=== PATIENT | female | born 1995 | race Caucasian/White ===

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

== ENCOUNTER → 2017-02-01 | Outpatient (CLI) | payer BC ==
--- NOTE | 2017-02-01 09:34 | CT ---
EXAMINATION TYPE: CT abdomen pelvis wo/w con DATE OF EXAM: 02/01/2017 9:01 AM COMPARISON: NONE INDICATION: Abnormal weight loss DLP: 2720 mGycm, Automated exposure control for dose reduction was used. CONTRAST: 100 ml mL of Omnipaque 300. Study performed with Oral Contrast TECHNIQUE: Axial images were obtained from above the diaphragm to the pubic rami in the axial plane a t 5 mm thick sections. Reconstructed images are reviewed on the computer in the coronal plane. Stud y is performed without and then with intravenous contrast. Oral contrast is utilized. FINDINGS: Limited CT sections are obtained the lung bases. The lung bases are clear. CT ABDOMEN: Liver: Normal Spleen: Normal Pancreas: Normal Adrenal glands: The adrenal glands are normal. Gallbladder: Normal Kidneys: No masses are evident. No hydronephrosis is present. No cysts are present. Delayed images were obtained through the kidneys, which remain unremarkable. Aorta: Normal Inferior vena cava: Normal. CT PELVIS: Loops of bowel within the abdomen and pelvis are normal. There are loops of bowel which are incom pletely distended or lack oral contrast limiting their evaluation. Appendix: Not identified Urinary bladder: Normal. Genitourinary structures: Uterus and ovaries appear unremarkable. Osseous structures: No suspicious lytic or sclerotic lesions. IMPRESSIONS: 1. Unremarkable CT abdomen and pelvis.
== END | disposition home or self-care (01) ==
LOC: RADCTMAIN 06:32
PROVIDERS: ATTEND Physician Assistant
DX: R63.4 Abnormal weight loss (principal)
CPT/HCPCS: 74178; Q9967

== ENCOUNTER 2017-02-03 10:35 | Emergency (ER) | payer BC ==
[2017-02-03] MEDS ORDERED: HYDROmorphone 1 MG/ML 1 ML SYRINGE IVP STA (10:54)
[2017-02-03] MEDS ORDERED: SODIUM CHLORIDE 0.9% 1,000 ML IV STA ×2 (10:54)
[2017-02-03] MEDS ORDERED: ONDANSETRON 4 MG/2 ML VIAL IVP STA (10:54)
[2017-02-03] MEDS ORDERED: MAG HYDROX/AL HYDROX/SIMETH 30 ML, HYOSCYAMINE ELIXIR 10 ML, CIMETIDINE HCL 300 MG, LID... PO STA ×4 (10:56)
[2017-02-03] MEDS ORDERED: PANTOPRAZOLE 40 MG/10 ML VIAL IVP STA (10:57)
--- NOTE | 2017-02-03 11:37 | ED ---
Abdominal Pain HPI - General Chief Complaint: Abdominal Pain Stated Complaint: Abd Pain Time Seen by Provider: 02/03/17 10:44 Source: patient Mode of arrival: ambulatory Limitations: no limitations - History of Present Illness Initial Comments: This 21-year-old female presents complaining of some mid upper abdominal pain. She states that this is a chronic problem that she's had for the last 9 months but it became worse today. She states that it is worse with any food or fluid intake and she has not had much intake over the last day or 2. She had nausea and vomiting 3 days ago but none since. She had a diarrhea yesterday but none today. She denies any fevers or chills. She is currently on her period so is doubtful. She apparently had a computed tomography scan of her abdomen and pelvis 2 days ago and this is negative per records for any acute process. She has had an extensive workup for her abdominal pain and is being seen by Dr. Méndez from gastroenterology. She is had an ultrasound of her abdomen twice, a colonoscopy, and an EGD which were all purportedly negative. She essentially has been diagnosed with irritable bowel syndrome and is on medications for this. She denies any previous abdominal surgeries. She has been taking ibuprofen for her pain for the last 2 days. She took 600 mg twice yesterday. She took 800 mg and 600 mg a day prior. She has been taking Bentyl as needed for her irritable bowel syndrome with limited relief. No other complaints or modifying factors. - Related Data Home Medications Medication Instructions Recorded Confirmed Dicyclomine [Bentyl] 10 mg PO TID 02/03/17 02/03/17 Ibuprofen [Motrin] 600 mg PO Q6HR PRN 02/03/17 02/03/17 Previous Rx's Medication Instructions Recorded Ondansetron Odt [Zofran ODT] 4 mg PO Q8HR PRN #15 tab 02/03/17 traMADol HCl [Ultram] 50 - 100 mg PO Q6H PRN #15 tab 02/03/17 Allergies Allergy/AdvReac Type Severity Reaction Status Date / Time No Known Allergies Allergy Verified 02/03/17 11:10 Review of Systems ROS Statement: Those systems with pertinent positive or pertinent negative responses have been documented in the HPI. ROS Other: All systems not noted in ROS Statement are negative. 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 VITAL SIGNS: Heart rate, blood pressure, respiratory rate reviewed as recorded in nurse's notes. EYES: Pupils are round and reactive. Extraocular movements are intact. No conjunctival / lid redness or swelling. ENT: No external evidence of injury, swelling, or ecchymosis. Airway is patent. Throat is clear. NECK: Nontender. No swelling or evidence of injury. No subcutaneous emphysema. Trachea is midline. No thyroid mass. HEART: Regular rate and rhythm. Good peripheral pulses. LUNGS/CHEST: Breath sounds clear and equal bilaterally. No rales, rhonchi, or wheezes. No ecchymosis, subcutaneous emphysema, or tenderness. ABDOMEN: There is some mild tenderness present into the midepigastric region. No palpable masses or organomegaly. No peritoneal signs. No abdominal wall swelling or ecchymosis. EXTREMITIES: No extremity tenderness. Normal muscle tone and function. No thoracolumbar tenderness. NEUROLOGIC: Sensation is grossly intact. Cranial nerve exam reveals face is symmetrical, tongue is midline, speech is clear. SKIN: No abrasions or ecchymosis is noted. No induration or masses noted. PSYCHIATRIC: Alert and oriented. Appropriate behavior and judgment. Limitations: no limitations Course Vital Signs 02/03/17 02/03/17 10:37 12:38 Temperature 98.0 F 98.5 F Pulse Rate 63 62 Respiratory 16 18 Rate Blood Pressure 134/74 117/77 O2 Sat by Pulse 100 100 Oximetry Medical Decision Making - Medical Decision Making The patient was seen and examined. All diagnostics were reviewed. She really Dilaudid 0.5 mg IV, GI cocktail, and Protonix IV. She is informed that she should stop utilizing any nonsteroidal anti-inflammatory drugs. She does relate that she was utilized marijuana in the past but not recently. She is informed to not start utilizing marijuana as this could potentially have further long-term GI side effects such as cyclic vomiting syndrome for marijuana hyperemesis syndrome. The laboratory came back essentially all within normal limits. There is some ketones in your urine which does demonstrate some degree of dehydration. The KUB x-ray does not show any acute processes. She is feeling markedly improved on recheck. It is felt as though she is stable for discharge. Her symptoms are likely related to her irritable bowel syndrome. The possibility of gastritis is possible although the results of her EGD are unknown to me. It is felt as though she would benefit from following up with her GI physician for further evaluation and treatment and further recommendations. She will be provided a short course of pain medications in case symptoms do recur. - Lab Data Result diagrams: 02/03/17 11:10 02/03/17 11:10 Lab Results 02/03/17 02/03/17 02/03/17 Range/Units 11:10 11:10 11:10 WBC 10.1 (4.0-11.0) k/uL RBC 5.45 H (3.80-5.40) m/uL Hgb 16.4 H (11.4-16.0) gm/dL Hct 48.9 H (34.0-46.0) % MCV 89.8 (80.0-100.0) fL MCH 30.2 (25.0-35.0) pg MCHC 33.6 (31.0-37.0) g/dL RDW 13.4 (11.5-15.5) % Plt Count 253 (150-450) k/uL Neutrophils % 78 % Lymphocytes % 14 % Monocytes % 5 % Eosinophils % 1 % Basophils % 1 % Neutrophils # 7.9 H (1.3-7.7) k/uL Lymphocytes # 1.5 (1.0-4.8) k/uL Monocytes # 0.5 (0-1.0) k/uL Eosinophils # 0.1 (0-0.7) k/uL Basophils # 0.1 (0-0.2) k/uL Sodium 144 (137-145) mmol/L Potassium 4.0 (3.5-5.1) mmol/L Chloride 103 (98-107) mmol/L Carbon Dioxide 24 (22-30) mmol/L Anion Gap 17 mmol/L BUN 6 L (7-17) mg/dL Creatinine 0.65 (0.52-1.04) mg/dL Est GFR (MDRD) Af Amer >60 (>60 ml/min/1.73 sqM) Est GFR (MDRD) Non-Af >60 (>60 ml/min/1.73 sqM) Glucose 96 (74-99) mg/dL Calcium 10.2 (8.4-10.2) mg/dL Total Bilirubin 1.0 (0.2-1.3) mg/dL AST 21 (14-36) U/L ALT 21 (9-52) U/L Alkaline Phosphatase 55 (38-126) U/L Total Protein 8.6 H (6.3-8.2) g/dL Albumin 4.8 (3.5-5.0) g/dL Amylase 40 (30-110) U/L Lipase 31 (23-300) U/L Urine Color Yellow Urine Appearance Cloudy H (Clear) Urine pH 5.5 (5.0-8.0) Ur Specific [place] 1.018 (1.001-1.035) Urine Protein Trace H (Negative) Urine Glucose (UA) Negative (Negative) Urine Ketones 3+ H (Negative) Urine Blood Small H (Negative) Urine Nitrite Negative (Negative) Urine Bilirubin Negative (Negative) Urine Urobilinogen 2.0 (<2.0) mg/dL Ur Leukocyte Esterase Negative (Negative) Urine RBC 3 (0-5) /hpf Urine WBC 4 (0-5) /hpf Ur Squamous Epith Cells 10 H (0-4) /hpf Urine Bacteria Rare H (None) /hpf Urine Mucus Few H (None) /hpf Urine Sperm Rare (None) /hpf Urine HCG, Qual (Not Detectd) 02/03/17 Range/Units 11:10 WBC (4.0-11.0) k/uL RBC (3.80-5.40) m/uL Hgb (11.4-16.0) gm/dL Hct (34.0-46.0) % MCV (80.0-100.0) fL MCH (25.0-35.0) pg MCHC (31.0-37.0) g/dL RDW (11.5-15.5) % Plt Count (150-450) k/uL Neutrophils % % Lymphocytes % % Monocytes % % Eosinophils % % Basophils % % Neutrophils # (1.3-7.7) k/uL Lymphocytes # (1.0-4.8) k/uL Monocytes # (0-1.0) k/uL Eosinophils # (0-0.7) k/uL Basophils # (0-0.2) k/uL Sodium (137-145) mmol/L Potassium (3.5-5.1) mmol/L Chloride (98-107) mmol/L Carbon Dioxide (22-30) mmol/L Anion Gap mmol/L BUN (7-17) mg/dL Creatinine (0.52-1.04) mg/dL Est GFR (MDRD) Af Amer (>60 ml/min/1.73 sqM) Est GFR (MDRD) Non-Af (>60 ml/min/1.73 sqM) Glucose (74-99) mg/dL Calcium (8.4-10.2) mg/dL Total Bilirubin (0.2-1.3) mg/dL AST (14-36) U/L ALT (9-52) U/L Alkaline Phosphatase (38-126) U/L Total Protein (6.3-8.2) g/dL Albumin (3.5-5.0) g/dL Amylase (30-110) U/L Lipase (23-300) U/L Urine Color Urine Appearance (Clear) Urine pH (5.0-8.0) Ur Specific [place] (1.001-1.035) Urine Protein (Negative) Urine Glucose (UA) (Negative) Urine Ketones (Negative) Urine Blood (Negative) Urine Nitrite (Negative) Urine Bilirubin (Negative) Urine Urobilinogen (<2.0) mg/dL Ur Leukocyte Esterase (Negative) Urine RBC (0-5) /hpf Urine WBC (0-5) /hpf Ur Squamous Epith Cells (0-4) /hpf Urine Bacteria (None) /hpf Urine Mucus (None) /hpf Urine Sperm (None) /hpf Urine HCG, Qual Not Detected (Not Detectd) Disposition Clinical Impression: Abdominal pain, Irritable bowel syndrome Disposition: HOME SELF-CARE Condition: Good Instructions: Abdominal Pain (ED), Irritable Bowel Syndrome (ED) Prescriptions: Ondansetron Odt [Zofran ODT] 4 mg PO Q8HR PRN #15 tab PRN Reason: Nausea And Vomiting traMADol HCl [Ultram] 50 - 100 mg PO Q6H PRN #15 tab PRN Reason: Pain Referrals: Josesito Roach DO [Primary Care Provider] - 1-2 days [place] Méndez MD [STAFF PHYSICIAN] - 1-2 days Time of Disposition: 12:54
[2017-02-03 11:38] LABS: Basophils # (A) 0.1 k/uL (0-0.2); Basophils % (A) 1 %; CH 29.8; CHCM 33.3; Eosinophils # (A) 0.1 k/uL (0-0.7); Eosinophils % (A) 1 %; HCT 48.9 % (34.0-46.0); HDW 2.41; HGB 16.4 gm/dL (11.4-16.0); Luc # (Auto) 0.14; Luc % (Auto) 1; Lymphocytes # (A) 1.5 k/uL (1.0-4.8); Lymphocytes % (A) 14 %; MCH 30.2 pg (25.0-35.0); MCHC 33.6 g/dL (31.0-37.0); MCV 89.8 fL (80.0-100.0); Mean Platelet Volume 7.5; Monocytes # (A) 0.5 k/uL (0-1.0); Monocytes % (A) 5 %; Neutrophils # (A) 7.9 k/uL (1.3-7.7); Neutrophils % (A) 78 %; RBC 5.45 m/uL (3.80-5.40); RDW 13.4 % (11.5-15.5); WBC 10.1 k/uL (4.0-11.0); WBC (Perox) 9.95
--- NOTE | 2017-02-03 11:39 | XR ---
EXAMINATION TYPE: XR KUB DATE OF EXAM: 02/03/2017 11:30 AM CLINICAL HISTORY: Upper abdominal pain. TECHNIQUE: 2 upright KUB images of the abdomen are obtained. COMPARISON: CT abdomen and pelvis from 2 days earlier. FINDINGS: Scattered gas is seen in non-distended small bowel loops. Gas is seen in non-distended co jose alberto. Contrast from recent CT and fecal material is seen in nondistended sigmoid colon and rectum. The re is no visceromegaly, pneumoperitoneum, or abnormal calcification appreciated. The lung bases are clear and the osseous structures are intact. IMPRESSION: Overall nonobstructive bowel gas pattern remains present.
[2017-02-03 11:49] LABS: ALT 21 U/L (9-52); AST 21 U/L (14-36); Alkaline Phosphatase 55 U/L (38-126); Amylase 40 U/L (30-110); Anion Gap 17 mmol/L; Blood Urea Nitrogen 6 mg/dL (7-17); Calcium 10.2 mg/dL (8.4-10.2); Carbon Dioxide 24 mmol/L (22-30); Chloride 103 mmol/L (98-107); Glucose 96 mg/dL (74-99); Non-African American GFR(MDRD) >60 (>60 ml/min/1.73 sqM); Sodium 144 mmol/L (137-145); Total Protein 8.6 g/dL (6.3-8.2)
[2017-02-03 12:07] LABS: Appearance,Urine Cloudy (Clear); Bacteria,Urine Rare /hpf; Bilirubin,Urine Negative (Negative); Glucose,Urine (UA) Negative (Negative); Ketones,Urine 3+ (Negative); Leukocyte Esterase,Urine Negative (Negative); Mucus,Urine Few /hpf; Nitrite,Urine Negative (Negative); PH, Urine 5.5 (5.0-8.0); Particle Count 11177; Protein,Urine Trace (Negative); RBC,Urine 3 /hpf (0-5); Specific Gravity,Urine 1.018 (1.001-1.035); Sperm,Urine Rare /hpf; Squamous Epithelial Cell,Urine 10 /hpf (0-4); UA Billing (MACRO vs. MICRO) MICRO; WBC,Urine 4 /hpf (0-5)
[2017-02-03 13:39] VITALS: BP 132/59; PULSE 66; RESP 18; TEMP 98
== END 2017-02-03 13:39 | disposition home or self-care (01) ==
LOC: EC 10:35
DX: K58.9 Irritable bowel syndrome, unspecified (principal); R10.13 Epigastric pain; Z79.899 Other long term (current) drug therapy
CPT/HCPCS: 99284 ×2; 96374 ×2; 96375 ×3; 96361 ×3; 36415; 80053; 82150; 83690; 85025; 81001; 81025; 74000; J2405; J1170; C9113

== ENCOUNTER 2017-10-28 17:08 | Inpatient (IN) | payer BC, MEDICAID ==
--- NOTE | 2017-10-28 17:34 | ED ---
General Adult HPI - General Source: patient, RN notes reviewed Mode of arrival: ambulatory Limitations: no limitations <Janes Carcamo - Last Filed: 10/28/17 19:31> <Mark Delarosa - Last Filed: 10/28/17 19:42> - General Chief complaint: Psychiatric Symptoms Stated complaint: Anxiety/Mental health Time Seen by Provider: 10/28/17 17:20 - History of Present Illness Initial comments: 22-year-old female who presents emergency room today with a chief complaint of suicidal ideation. Patient does admit that she has been having of symptoms over the last year. Since he has been following up with therapist. States he has been taking her medication. States today she is having increased thoughts of hurting herself. Her friend at bedside states he came home and noticed that she was hypotensive in the bathroom trying to cut her arm. Patient states that she has had thoughts of suicide. She denies bowel sounds. Eyes denies any visual or auditory hallucinations. Patient denies any recent fever, chills, shortness of breath, chest pain, back pain, abdominal pain, nausea or vomiting, visual changes, or any other complaints. (Janes Carcamo) - Related Data Home Medications Medication Instructions Recorded Confirmed Sertraline [Zoloft] 50 mg PO DAILY 10/28/17 10/28/17 Allergies Allergy/AdvReac Type Severity Reaction Status Date / Time No Known Allergies Allergy Verified 10/28/17 17:41 Review of Systems ROS Other: All systems not noted in ROS Statement are negative. <Janes Carcamo - Last Filed: 10/28/17 19:31> ROS Other: All systems not noted in ROS Statement are negative. <Mark Delarosa - Last Filed: 10/28/17 19:42> ROS Statement: Those systems with pertinent positive or pertinent negative responses have been documented in the HPI. Past Medical History Past Medical History: No Reported History Additional Past Medical History / Comment(s): ITP, IBS History of Any Multi-Drug Resistant Organisms: MRSA Date of last positivie culture/infection: 2016 MDRO Source:: urine Past Surgical History: No Surgical Hx Reported Past Psychological History: Anxiety, Depression Smoking Status: Never smoker Past Alcohol Use History: None Reported Past Drug Use History: Marijuana <Janes Carcamo - Last Filed: 10/28/17 19:31> General Exam Limitations: no limitations <Janes Carcamo - Last Filed: 10/28/17 19:31> <Mark Delarosa - Last Filed: 10/28/17 19:42> - General Exam Comments Initial Comments: General: The patient is awake and alert, in no distress, and does not appear acutely ill. Eye: Pupils are equal, round and reactive to light, extra-ocular movements are intact. No nystagmus. There is normal conjunctiva bilaterally. No signs of icterus. Ears, nose, mouth and throat: There are moist mucous membranes and no oral lesions. Neck: The neck is supple, there is no tenderness or JVD. Cardiovascular: There is a regular rate and rhythm. No murmur, rub or gallop is appreciated. Respiratory: Lungs are clear to auscultation, respirations are non-labored, breath sounds are equal. No wheezes, stridor, rales, or rhonchi. Musculoskeletal: Normal ROM, no tenderness. Strength 5/5. Sensation intact. Pulses equal bilaterally 2+. Neurological: A&O x 3. CN II-XII intact, There are no obvious motor or sensory deficits. Coordination appears grossly intact. Speech is normal. Skin: Skin is warm and dry and no rashes or lesions are noted. Psychiatric: Cooperative. (Janes Carcamo) Course <Janes Carcamo - Last Filed: 10/28/17 19:31> <Mark Delarosa - Last Filed: 10/28/17 19:42> Vital Signs 10/28/17 17:14 Temperature 98.3 F Pulse Rate 90 Respiratory 20 Rate Blood Pressure 135/75 O2 Sat by Pulse 100 Oximetry - Reevaluation(s) Reevaluation #1: 10/28/17 19:31 Patient currently waiting to be evaluated by psych here in the emergency room. Case discussed and signed out to attending physician Dr. Delarosa at this time. ( Janes Carcamo) Medical Decision Making <Janes Carcamo - Last Filed: 10/28/17 19:31> <Mark Delarosa - Last Filed: 10/28/17 19:42> - Medical Decision Making Patient be admitted to [facility], evaluated by the psychiatric counselor and nurse to the emergency room. Diagnosis suicidal ideation. (Mark Delarosa) - Lab Data Lab Results 10/28/17 10/28/17 Range/Units 17:50 17:50 Urine HCG, Qual Not Detected (Not Detectd) Urine Opiates Screen Not Detected (NotDetected) Ur Oxycodone Screen Not Detected (NotDetected) Urine Methadone Screen Not Detected (NotDetected) Ur Propoxyphene Screen Not Detected (NotDetected) Ur Barbiturates Screen Not Detected (NotDetected) U Tricyclic Antidepress Not Detected (NotDetected) Ur Phencyclidine Scrn Not Detected (NotDetected) Ur Amphetamines Screen Not Detected (NotDetected) U Methamphetamines Scrn Not Detected (NotDetected) U Benzodiazepines Scrn Not Detected (NotDetected) Urine Cocaine Screen Not Detected (NotDetected) U Marijuana (THC) Screen Detected H (NotDetected) Disposition <Janes Carcamo - Last Filed: 10/28/17 19:31> <Mark Delarosa - Last Filed: 10/28/17 19:42> Clinical Impression: Suicidal ideation Disposition: TRANSFER TO PSYCH HOSP/UNIT Condition: Undetermined Referrals: Windy Shetty DO [Primary Care Provider] - 1-2 days
[2017-10-28 18:16] LABS: Amphetamine Screen,Urine Not Detected (NotDetected); Barbiturate Screen,Urine Not Detected (NotDetected); Benzodiazepines Screen,Urine Not Detected (NotDetected); Cocaine Screen,Urine Not Detected (NotDetected); Methadone Screen, Urine Not Detected (NotDetected); Opiate Screen,Urine Not Detected (NotDetected); Oxycodone Screen, Urine Not Detected (NotDetected); Phencyclidine Screen,Urine Not Detected (NotDetected); Tricyclic Antidepressant,Urine Not Detected (NotDetected); Urn Cannabinoid Scrn Detected (NotDetected)
[2017-10-28 21:59] VITALS: BMI 35.5
[2017-10-28] MEDS ORDERED: MAGNESIUM HYDROXIDE 2,400 MG/10 ML CUP PO PRN (22:37)
[2017-10-28] MEDS ORDERED: ACETAMINOPHEN TAB 325 MG TAB PO PRN (22:37)
[2017-10-28] MEDS ORDERED: ZIPRASIDONE 20 MG VIAL IM PRN (22:37)
[2017-10-28] MEDS: LORazepam 1 MG TAB PO PRN (23:44)
[2017-10-29 08:21] LABS: Basophils # (A) 0.1 k/uL (0-0.2); Basophils % (A) 1 %; Eosinophils # (A) 0.1 k/uL (0-0.7); Eosinophils % (A) 1 %; HCT 46.7 % (34.0-46.0); HGB 15.2 gm/dL (11.4-16.0); Lymphocytes # (A) 3.8 k/uL (1.0-4.8); Lymphocytes % (A) 53 %; MCH 29.6 pg (25.0-35.0); MCHC 32.5 g/dL (31.0-37.0); MCV 91.1 fL (80.0-100.0); Mean Platelet Volume 7.1; Monocytes # (A) 0.5 k/uL (0-1.0); Monocytes % (A) 6 %; Neutrophils # (A) 2.7 k/uL (1.3-7.7); Neutrophils % (A) 37 %; Platelet Count 200 k/uL (150-450); RBC 5.12 m/uL (3.80-5.40); RDW 13.7 % (11.5-15.5); WBC 7.3 k/uL (4.0-11.0)
[2017-10-29 08:25] LABS: ALT 27 U/L (9-52); AST 20 U/L (14-36); Albumin 4.2 g/dL (3.5-5.0); Alkaline Phosphatase 43 U/L (38-126); Anion Gap 8 mmol/L; Blood Urea Nitrogen 6 mg/dL (7-17); Calcium 9.8 mg/dL (8.4-10.2); Carbon Dioxide 26 mmol/L (22-30); Chloride 105 mmol/L (98-107); Cholesterol 159 mg/dL (<200); Glucose 97 mg/dL (74-99); HDL Cholesterol 51 mg/dL (40-60); LDL Cholesterol,Calculated 89 mg/dL (0-99); Potassium 3.7 mmol/L (3.5-5.1); Sodium 139 mmol/L (137-145); Total Bilirubin 0.8 mg/dL (0.2-1.3); Total Protein 7.4 g/dL (6.3-8.2); Triglycerides 94 mg/dL (<150)
[2017-10-29] MEDS: MAG HYDROX/AL HYDROX/SIMETH 30 ML CUP PO PRN (08:52)
[2017-10-29] MEDS ORDERED: SERTRALINE 50 MG TAB PO SCH (09:00)
[2017-10-29] MEDS ORDERED: SERTRALINE 50 MG TAB PO STA (11:46)
[2017-10-29] MEDS: ONDANSETRON ODT 4 MG TAB PO PRN (12:54)
--- NOTE | 2017-10-29 15:43 | P.HPIM ---
History of Present Illness H&P Date: 10/29/17 Megan Schaffer is a 22-year-old female patient of Dr. Windy Shetty who presented to [facility] emergency room this chief complaint of depression , anxiety, suicidal ideation, she was admitted to psychiatry floor, medical consultation was requested for management while hospitalized, patient follows with Dr. Shetty as outpatient for medical management, she denies any previous past medical history, she denies any previous surgery, she denies any history of smoking or alcohol use, she states she smokes marijuana occasionally, she is not she has no children, she has a boyfriend. On review of systems Patient denies any fever or chills no headache no dizziness No chest pain no shortness of breath no cough no palpitation Nausea or vomiting no abdominal pain no diarrhea or constipation She has burning with urination as off-white vaginal discharge 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 Date of last positivie culture/infection: 2015 MDRO Source:: urine Past Surgical History: No Surgical Hx Reported Past Anesthesia/Blood Transfusion Reactions: No Reported Reaction Past Psychological History: Anxiety, Depression Smoking Status: Never smoker Past Alcohol Use History: None Reported, Occasional Additional Past Alcohol Use History / Comment(s): Patient states that she drinks alcohol once monthly-- about 3 drinks. Past Drug Use History: Marijuana Additional Drug Use History / Comment(s): Pt states that she smokes MJ daily- one joint. - Past Family History Father Additional Family Medical History / Comment(s): Bipolar Mother Family Medical History: Hypertension, Pulmonary Embolus Additional Family Medical History / Comment(s): Depression, Anxiety, PTSD Sister(s) Family Medical History: No Reported History Brother(s) Family Medical History: No Reported History Medications and Allergies Home Medications Medication Instructions Recorded Confirmed Type Sertraline [Zoloft] 50 mg PO DAILY 10/28/17 10/28/17 History Allergies Allergy/AdvReac Type Severity Reaction Status Date / Time No Known Allergies Allergy Verified 10/28/17 22:03 Physical Exam Vitals: Vital Signs Temp Pulse Pulse Resp BP BP Pulse Ox 10/29/17 10:53 98.2 F 99 20 135/96 98 10/29/17 08:54 98.3 F 10/29/17 01:12 99.5 F 62 16 134/93 10/28/17 22:28 100.2 F H 90 16 140/76 100 10/28/17 21:52 100.2 F H 90 16 140/76 98 10/28/17 20:47 98.2 F 71 20 131/71 97 10/28/17 17:14 98.3 F 90 20 135/75 100 Intake and Output 10/29/17 10/29/17 10/29/17 06:59 14:59 22:59 Other: Weight 99.8 kg Patient Weight 10/30/17 06:59 Weight 99.8 kg HEENT head normocephalic and atraumatic Neck is supple no JVD no goiter no lymphadenopathy Chest exam reveals a few scattered crackles no wheezing Cardiac exam reveals regular heart sounds S1 and S2 no gallops no murmurs Abdomen is soft nontender no organomegaly Extremity exam reveals no edema no cyanosis or clubbing There are superficial cuts oh on bilateral forearms evidence of cellulitis Results CBC & Chem 7: 10/29/17 07:56 10/29/17 07:56 Labs: Abnormal Lab Results - Last 24 Hours (Table) 10/28/17 10/29/17 10/29/17 Range/Units 17:50 07:56 07:56 Hct 46.7 H (34.0-46.0) % BUN 6 L (7-17) mg/dL TSH 6.920 H (0.465-4.680) mIU/L U Marijuana (THC) Screen Detected H (NotDetected) Thrombosis Risk Factor Assmnt - Choose All That Apply Each Factor Represents 1 point: Obesity (BMI >25) Each Risk Factor Represents 3 Points: Family history of DVT/PE Other congenital or acquired thrombophilia - If yes, enter type in comment: No ( Pt has history of ITP at 6yrs old.) Thrombosis Risk Factor Assessment Total Risk Factor Score: 4 Thrombosis Risk Factor Assessment Level: Moderate Risk Assessment and Plan Plan: #1 depression and with anxiety and suicidal ideation management per primary psychiatry team #2 elevated TSH Will start on Synthroid 25 g daily #3 vaginal discharge with burning with urination obtain urine analysis with urine culture will also check urine for evidence of STD, may need pelvic exam with pelvic cultures, if cause not entirely clinically #4 self-inflicted wounds on bilateral forearms, without any evidence of cellulitis at this time will monitor
[2017-10-29 20:23] LABS: Appearance,Urine Clear (Clear); Bilirubin,Urine Negative (Negative); Blood,Urine Negative (Negative); Color,Urine Colorless; Glucose,Urine (UA) Negative (Negative); Ketones,Urine Negative (Negative); Leukocyte Esterase,Urine Negative (Negative); Nitrite,Urine Negative (Negative); Protein,Urine Negative (Negative); Specific Gravity,Urine 1.001 (1.001-1.035); Urobilinogen,Urine <2.0 mg/dL (<2.0)
[2017-10-29] MEDS: traZODone HCL 50 MG TAB PO SCH (21:29)
[2017-10-29] MEDS: LORazepam 1 MG TAB PO PRN (23:11)
[2017-10-30 05:39] LABS: T4, Free (Free Thyroxine) 1.34 ng/dL (0.78-2.19)
[2017-10-30] MEDS: SERTRALINE 100 MG TAB PO SCH (08:57)
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
[2017-10-30] MEDS: LORazepam 1 MG TAB PO PRN ×2 (10:07→13:04)
[2017-10-30 10:56] LABS: T4, Free (Free Thyroxine) 1.23 ng/dL (0.78-2.19)
--- NOTE | 2017-10-30 15:10 | P.PN ---
Progress Note - Text Patient is admitted to the psychiatry floor she was seen in medical consultation TSH on presentation was elevated at 6.92 however clinical presentation is not compatible with hypothyroidism Repeat TSH and free T4 reveals normal value today At this time will withhold any treatment Patient should have repeated testing for her thyroid chest 1-2 months to make sure that she is euthyroid
[2017-10-30] MEDS: OLANZapine 5 MG TAB PO SCH ×2 (16:18→22:43)
[2017-10-30] MEDS: traZODone HCL 50 MG TAB PO SCH (20:24)
[2017-10-31] MEDS: SERTRALINE 100 MG TAB PO SCH (09:01)
[2017-10-31] MEDS: OLANZapine 5 MG TAB PO SCH ×2 (09:01→17:09)
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
[2017-10-31 10:17] LABS: Glucose,Whole Blood 98 mg/dL (75-99)
[2017-10-31 16:12] LABS: C. trachomatis,PCR Negative (Neg,Equiv); Chlamydia trachomatis Source Urine; N. gonorrhoeae,PCR Negative (Neg,Equiv); Neisseria Source Urine
--- NOTE | 2017-10-31 18:15 | P.PN ---
Progress Note - Text Date of service: 10/31/2017 Chief complaint: "I'm still depressed " Subjective: The patient has been seen today as follow-up, chart reviewed, case discussed with the treatment team. Patient slept about more than 6 hours last night. Patient has been going to groups and other unit activities. Patient reports fair appetite problems. Even the patient reported feeling some improvement compared to the time she came to the hospital, but she still feeling depressed and irritable. Patient was very fixated on bouts of severe drowsiness and syncope. According to the staff she had one episode of severe drowsiness and almost fainted earlier while she was taking her medication. The patient related her fainting to the new medication Zyprexa and Zoloft. Patient minimized has suicidal thoughts and he denies any plan or intent to hurt herself or others. The patient denies any auditory or visual hallucinations. Patient addressed symptoms of severe mood swings and irritable mood with bouts of impulsive and agitated behavior. She reported clear symptoms of mood cycling between hypomanic to very depressed mood. She addressed issues with feeling abandonment or rejection. She reported history of SIB. The patient is compliant with her medications and denies any adverse reactions. Review of other systems: Patient denies any physical symptoms besides what has been mentioned above. No breathing problems, no chest pain reported today. Objective: Vitals has been reviewed. Mental status examination; Appearance: The patient appears stated age, adequately groomed and dressed, no specific features. Gait/posture: Normal gait, Normal arm swinging: No abnormal movements. Attitude and behavior: engaged, cooperative, eye contact. Motor activity: Normal psychomotor activity Speech: Normal rate, tone. Mood: Anxious depressed, irritable Affect: Constricted Thought form: goal-directed, linear, coherent. Thought content: Non-delusional, minimizes suicidal thoughts, denies homicidal thoughts, denies intentions or plans. Perception: Denies any auditory or visual hallucinations Attention: No impairment. Patient was able to repeat serial 5. Orientation: Patient patient was fully oriented to time place person and situation. Insight: Patient has limited insight about his psychiatric disorder. Judgment: Patient has limited judgment about his psychiatric treatment. Assessment: Rule out bipolar 2 disorder Rule out borderline personality disorder Major depressive disorder recurrent without psychotic features PTSD Plan: Continue with inpatient psychiatric hospitalization for monitoring and continue treatment. Continue group therapy and other unit activities. Continue psychiatric medications: Trazodone at bedtime to help with insomnia and for depression Will discontinue Zyprexa for reported drop in blood pressure and fainting as a side effect. Obtain EKG to rule out any medical causes of fainting. And consult IMS if needed Abilify 2 mg daily as a mood stabilizer Vistaril 50 mg 4 times a day as needed for anxiety Consider Effexor as an antidepressant Consider propranolol if continued to have severe anxiety.
[2017-10-31] MEDS: traZODone HCL 50 MG TAB PO SCH (21:49)
[2017-10-31] MEDS: hydrOXYzine PAMOATE 25 MG CAP PO PRN (21:51)
[2017-11-01] MEDS: LORazepam 1 MG TAB PO PRN ×2 (05:53→10:51)
[2017-11-01] MEDS: ARIPiprazole 5 MG TAB PO SCH (08:30)
--- NOTE | 2017-11-01 15:40 | P.PN ---
Progress Note - Text Date of service: 11/01/2017 Chief complaint: "My sleep is better " Subjective: The patient has been seen today as follow-up, chart reviewed, case discussed with the treatment team. Patient slept about more than 7 hours last night. Patient has been going to groups and other unit activities. Patient reports fair appetite problems. The patient has no episodes of fainting or syncope. She stopped taking the Zyprexa and Zoloft. Patient reported her mood is slightly better and she started taking the Abilify today. She denies feeling suicidal and he denies any thoughts to hurt herself or others. She denies any hallucinations or paranoid feeling. EKG was obtained yesterday and would follow up with the medical provider to address if any further monitoring or follow-up needed. Patient reported she feels anxious about the results of the EKG. Patient denies any urge to hurt herself or cut herself. The patient is compliant with her medications and denies any adverse reactions. Review of other systems: Patient denies any physical symptoms besides what has been mentioned above. No breathing problems, no chest pain reported today. Objective: Vitals has been reviewed. Mental status examination; Appearance: The patient appears stated age, adequately groomed and dressed, no specific features. Gait/posture: Normal gait, Normal arm swinging: No abnormal movements. Attitude and behavior: engaged, cooperative, eye contact. Motor activity: Normal psychomotor activity Speech: Normal rate, tone. Mood: Anxious Affect: Constricted Thought form: goal-directed, linear, coherent. Thought content: Non-delusional, denies suicidal thoughts, denies homicidal thoughts, denies intentions or plans. Perception: Denies any auditory or visual hallucinations Attention: No impairment. Orientation: Patient patient was fully oriented to time place person and situation. Insight: Patient has fair insight about her psychiatric disorder. Judgment: Patient has fair judgment about her psychiatric treatment. Assessment: Rule out bipolar 2 disorder Rule out borderline personality disorder Major depressive disorder recurrent without psychotic features PTSD Plan: Continue with inpatient psychiatric hospitalization for monitoring and continue treatment. Continue group therapy and other unit activities. Continue psychiatric medications: Increase Abilify to 5 mg as a mood stabilizer and we'll start Effexor 75 mg tomorrow for depression symptoms. Follow-up on EKG results with the medical provider.
--- NOTE | 2017-11-01 19:27 | ECHOF ---
Referral Reason:syncope tachycardia MEASUREMENTS -------- HEIGHT: 167.6 cm WEIGHT: 99.8 kg BP: RVIDd: 3.0 cm (< 3.3) IVSd: 1.0 cm (0.6 - 1.1) LVIDd: 3.1 cm (3.9 - 5.3) LVPWd: 1.2 cm (0.6 - 1.1) IVSs: 1.7 cm LVIDs: 1.5 cm LVPWs: 1.8 cm Ao Diam: 2.8 cm (2.0 - 3.7) AV Cusp: 2.0 cm (1.5 - 2.6) LA Diam: 2.5 cm (2.7 - 3.8) MV EXCURSION: 18.829 mm (> 18.000) MV EF SLOPE: 66 mm/s (70 - 150) EPSS: 0.5 cm MV E Cristian: 0.80 m/s MV DecT: 181 ms MV A Cristian: 0.78 m/s MV E/A Ratio: 1.03 RAP: 5.00 mmHg RVSP: 23.20 mmHg FINDINGS -------- Sinus rhythm. This was a technically good study. The left ventricular size is normal. There is borderline concentric left ventricular hypertrophy. Overall left ventricular systolic function is normal with, an EF between 55 - 60 %. The right ventricle is normal in size and function. The left atrium is normal in size. The right atrium is normal in size. The aortic valve is trileaflet, and appears structurally normal. No aortic stenosis or regurgitation. There is trace mitral regurgitation. Trace tricuspid regurgitation present. The right ventricular systolic pressure, as measured by Dopp ler, is 23.20mmHg. Pulmonic valve appears structurally normal. The aortic root size is normal. Normal inferior vena cava with normal inspiratory collapse consistent with estimated right atrial pre ssure of 5 mmHg. The pericardium is normal. CONCLUSIONS -------- 1. Sinus rhythm. 2. This was a technically good study. 3. The left ventricular size is normal. 4. There is borderline concentric left ventricular hypertrophy. 5. Overall left ventricular systolic function is normal with, an EF between 55 - 60 %. 6. The right ventricle is normal in size and function. 7. The left atrium is normal in size. 8. The right atrium is normal in size. 9. The aortic valve is trileaflet, and appears structurally normal. No aortic stenosis or regurgitati on. 10. There is trace mitral regurgitation. 11. Trace tricuspid regurgitation present. 12. The right ventricular systolic pressure, as measured by Doppler, is 23.20mmHg. 13. Pulmonic valve appears structurally normal. 14. The aortic root size is normal. 15. Normal inferior vena cava with normal inspiratory collapse consistent with estimated right atrial pressure of 5 mmHg. 16. The pericardium is normal. CAMPGROUND ATTENDANT: Norma Wells RDCS
[2017-11-01] MEDS: hydrOXYzine PAMOATE 25 MG CAP PO PRN (20:24)
[2017-11-01] MEDS: traZODone HCL 50 MG TAB PO SCH (21:40)
[2017-11-02] MEDS: LORazepam 1 MG TAB PO PRN (00:06)
[2017-11-02] MEDS: ARIPiprazole 5 MG TAB PO SCH (07:37)
[2017-11-02] MEDS ORDERED: VENLAFAXINE HCL ER 75 MG CAP PO SCH (09:00)
--- NOTE | 2017-11-02 09:53 | P.CRDCN ---
History of Present Illness History of present illness: Patient interviewed and examined. Complaining of pounding in the chest, atypical chest discomfort shortness of breath and recurrent dizzy spells. Family history of massive pulmonary embolism. Anxiety disorder. 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 Past Drug Use History: Marijuana Additional Drug Use History / Comment(s): Pt states that she smokes MJ daily- one joint. - Past Family History Father Additional Family Medical History / Comment(s): Bipolar Mother Family Medical History: Hypertension, Pulmonary Embolus Additional Family Medical History / Comment(s): Depression, Anxiety, PTSD Sister(s) Family Medical History: No Reported History Brother(s) Family Medical History: No Reported History Medications and Allergies Home Medications Medication Instructions Recorded Confirmed Type Sertraline [Zoloft] 50 mg PO DAILY 10/28/17 10/28/17 History Allergies Allergy/AdvReac Type Severity Reaction Status Date / Time No Known Allergies Allergy Verified 10/28/17 22:03 Physical Exam Vitals: Vital Signs Temp Pulse Resp BP BP 11/02/17 09:40 98.4 F 106 H 16 142/90 11/02/17 07:22 98.3 F 113 H 18 131/76 11/01/17 21:43 101 H 16 144/88 Results 10/29/17 07:56 10/29/17 07:56 Current Medications Generic Name Dose Route Start Last Admin Trade Name Freq PRN Reason Stop Dose Admin Acetaminophen 650 mg 10/28/17 22:37 Tylenol Tab PO Q4HR PRN Pain/Discomfort Al Hydroxide/Mg Hydroxide 30 ml 10/28/17 22:37 10/29/17 08:52 Maalox PO 30 ml Q4HR PRN Administration GI Upset Aripiprazole 5 mg 11/01/17 09:00 11/02/17 07:37 Abilify PO 5 mg DAILY DUNCAN Administration Hydroxyzine Pamoate 25 mg 10/31/17 18:16 11/01/17 20:24 Vistaril PO 25 mg QID PRN Administration Anxiety Lorazepam 1 mg 10/28/17 22:37 11/02/17 00:06 Ativan PO 1 mg TID PRN Administration Anxiety, Agitation Magnesium Hydroxide 2,400 mg 10/28/17 22:37 Milk Of Magnesia PO DAILY PRN Constipation Ondansetron HCl 4 mg 10/29/17 12:29 10/29/17 12:54 Zofran Odt PO 4 mg Q8HR PRN Administration Nausea And Vomiting Trazodone HCl 75 mg 10/29/17 21:00 11/01/17 21:40 Desyrel PO 75 mg HS DUNCAN Administration Venlafaxine HCl 75 mg 11/02/17 09:00 11/02/17 07:37 Effexor Xr PO 75 mg DAILY DUNCAN Administration Ziprasidone 20 mg 10/28/17 22:37 Geodon IM BID PRN Agitation or Acute Psychosis 10/29/17 07:56 10/29/17 07:56
--- NOTE | 2017-11-02 13:21 | P.PN ---
Progress Note - Text Date of service: 11/02/2017 Chief complaint: "I'm so anxious about the heart test today " Subjective: The patient has been seen today as follow-up, chart reviewed, case discussed with the treatment team. Patient slept about [place] and 7 hours last night. Patient has been going to groups and other unit activities. Patient reports fair appetite problems. Patient reported emotionally feels anxious about having some distal on her heart today and she is worried about the outcome of that. The patient has been seen by user experience architect yesterday and recommended VQ scans over the long and echocardiogram for the heart which she can be performing today. The patient was educated about her symptoms and the cardiac test planned. Patient denies feeling depressed or suicidal and she denies any severe agitation or drastic mood swings. She denies any hallucinations and denies any. Her to anybody. The patient is compliant with her medications and denies any adverse reactions. Review of other systems: Patient denies any physical symptoms besides what has been mentioned above. No breathing problems, no chest pain reported today. Objective: Vitals has been reviewed. Mental status examination; Appearance: The patient appears stated age, adequately groomed and dressed, no specific features. Gait/posture: Normal gait, Normal arm swinging: No abnormal movements. Attitude and behavior: engaged, cooperative, eye contact. Motor activity: Normal psychomotor activity Speech: Normal rate, tone. Mood: Anxious Affect: Constricted Thought form: goal-directed, linear, coherent. Thought content: Non-delusional, denies suicidal thoughts, denies homicidal thoughts, denies intentions or plans. Perception: Denies any auditory or visual hallucinations Attention: No impairment. Orientation: Patient patient was fully oriented to time place person and situation. Insight: Patient has fair insight about her psychiatric disorder. Judgment: Patient has fair judgment about her psychiatric treatment. Assessment: Rule out bipolar 2 disorder Rule out borderline personality disorder Major depressive disorder recurrent without psychotic features PTSD Plan: Continue with inpatient psychiatric hospitalization for monitoring and continue treatment. Continue group therapy and other unit activities. Continue psychiatric medications: Increase Abilify to 10 mg daily dose to address mood symptoms and increase Effexor to 150 mg for depression and anxiety. Discharge planning is ongoing
[2017-11-02] MEDS ORDERED: VENLAFAXINE HCL ER 75 MG CAP PO STA (13:25)
--- NOTE | 2017-11-02 14:00 | P.CRDCN ---
History of Present Illness Consult date: 11/02/17 History of present illness: Ms. Schaffer is a pleasant 22-year-old female with past medical history significant for anxiety and depression. She denies history of CAD and has never seen a collection support specialist for any reason. We have been asked to see her on the mental health unit for tachycardia, dizziness, chest discomfort and mild shortness of breath. She states she can feel her heart racing at times but denies associated chest pain. The racing causes her to feel short of breath and dizzy. The palpitations can come at rest or with activity. There is no specific aggravating and alleviating factors. Her mother has a history of a PE. EKG reveals sinus mechanism with no acute ST or T-wave abnormalities. Vital signs have show heart rate elevated from 106-127 over the previous couple days. She was febrile on admission as well. She takes no cardiac medications. Review of Systems At the time of my exam CONSTITUTIONAL: Denies fever. Denies chills. EYES: Denies blurred vision. Denies vision changes. Denies eye pain. EARS, NOSE, MOUTH & THROAT: Denies headache. Denies sore throat. Denies ear pain. CARDIOVASCULAR: Denies chest pain. Denies shortness of breath. Denies orthopnea. Denies PND. Complains of palpitations. RESPIRATORY: Denies cough. GASTROINTESTINAL: Denies abdominal pain. Denies diarrhea. Denies constipation. Denies nausea. Denies vomiting. MUSCULOSKELETAL: Denies myalgias. INTEGUMENTARY: Denies pruitis. Denies rash. NEUROLOGIC: Denies numbness. Denies tingling. Denies weakness. PSYCHIATRIC: Denies anxiety. Denies depression. ENDOCRINE: Denies fatigue. Denies weight change. Denies polydipsia. Denies polyurina. GENITOURINARY: Denies burning, hematuria or urgency with micturation. HEMATOLOGIC: Denies history of anemia. Denies bleeding. 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 Past Drug Use History: Marijuana Additional Drug Use History / Comment(s): Pt states that she smokes MJ daily- one joint. - Past Family History Father Additional Family Medical History / Comment(s): Bipolar Mother Family Medical History: Hypertension, Pulmonary Embolus Additional Family Medical History / Comment(s): Depression, Anxiety, PTSD Sister(s) Family Medical History: No Reported History Brother(s) Family Medical History: No Reported History Medications and Allergies Home Medications Medication Instructions Recorded Confirmed Type Sertraline [Zoloft] 50 mg PO DAILY 10/28/17 10/28/17 History Allergies Allergy/AdvReac Type Severity Reaction Status Date / Time No Known Allergies Allergy Verified 10/28/17 22:03 Physical Exam Vitals: Vital Signs Temp Pulse Resp BP BP BP 11/02/17 12:15 98.3 F 114 H 18 134/79 11/02/17 09:40 98.4 F 106 H 16 142/90 11/02/17 07:22 98.3 F 113 H 18 131/76 11/01/17 21:43 101 H 16 144/88 Blood pressure 134/79 with a heart rate of 114 afebrile GENERAL: This is a 22-year-old female in no apparent distress at the time of my examination. Obese HEENT: Head is atraumatic, normocephalic. Pupils are equal, round. Sclerae anicteric. Conjunctivae are clear. Mucous membranes of the mouth are moist. Neck is supple. There is no jugular venous distention. No carotid bruit is heard. LUNGS: Clear to auscultation no wheezes, rales or rhonchi. No chest wall tenderness is noted on palpation or with deep breathing. HEART: Regular rate and rhythm without murmurs, rubs or gallops. S1 and S2 heard. Tachycardic. ABDOMEN: Soft, nontender. Bowel sounds are heard. No organomegaly noted. EXTREMITIES: 2+ peripheral pulses with no evidence of peripheral edema and no calf tenderness noted. NEUROLOGIC: Patient is awake, alert and oriented x3. Results 10/29/17 07:56 10/29/17 07:56 Current Medications Generic Name Dose Route Start Last Admin Trade Name Freq PRN Reason Stop Dose Admin Acetaminophen 650 mg 10/28/17 22:37 Tylenol Tab PO Q4HR PRN Pain/Discomfort Al Hydroxide/Mg Hydroxide 30 ml 10/28/17 22:37 10/29/17 08:52 Maalox PO 30 ml Q4HR PRN Administration GI Upset Aripiprazole 10 mg 11/03/17 09:00 Abilify PO DAILY DUNCAN Hydroxyzine Pamoate 25 mg 10/31/17 18:16 11/01/17 20:24 Vistaril PO 25 mg QID PRN Administration Anxiety Lorazepam 1 mg 10/28/17 22:37 11/02/17 00:06 Ativan PO 1 mg TID PRN Administration Anxiety, Agitation Magnesium Hydroxide 2,400 mg 10/28/17 22:37 Milk Of Magnesia PO DAILY PRN Constipation Ondansetron HCl 4 mg 10/29/17 12:29 10/29/17 12:54 Zofran Odt PO 4 mg Q8HR PRN Administration Nausea And Vomiting Trazodone HCl 75 mg 10/29/17 21:00 11/01/17 21:40 Desyrel PO 75 mg HS DUNCAN Administration Venlafaxine HCl 150 mg 11/03/17 09:00 Effexor Xr PO DAILY DUNCAN Ziprasidone 20 mg 10/28/17 22:37 Geodon IM BID PRN Agitation or Acute Psychosis 10/29/17 07:56 10/29/17 07:56 Assessment and Plan Assessment: ASSESSMENT 1. Chest pain, atypical for an acute coronary event. With associated shortness of breath, dizziness and tachycardia. 2. Family history of pulmonary embolism 3. Obese 4. Anxiety PLAN 2-D echocardiogram and Doppler study was evaluated and reveals preserved left ventricular systolic function with ejection fraction 55-60%, right ventricle is normal size and function, there are no valvular abnormalities. Recommend performed VQ scan to assess for probability of pulmonary embolism in a patient with significant family history. Nurse Practitioner note has been reviewed, I agree with a documented findings and plan of care. Patient was seen and examined.
--- NOTE | 2017-11-02 15:33 | NM ---
EXAMINATION TYPE: NM pul vent and perfuse DATE OF EXAM: 11/02/2017 COMPARISON: NONE, chest x-ray not available. HISTORY: Rule out PE. No other history is provided. TECHNIQUE: Utilizing inhalation of 75.5 mCi Tc 99m DTPA aerosol and intravenous injection of 5.5 mCi of Tc 99m MAA, ventilation and perfusion images are acquired post injection in multiple projections. FINDINGS: No moderate or large mismatched defects are evident. There is some diminished radiotracer accumulatio n at the right apex. IMPRESSION: Low probability for pulmonary embolism.
[2017-11-02] MEDS: ONDANSETRON ODT 4 MG TAB PO PRN (16:57)
[2017-11-02] MEDS: traZODone HCL 50 MG TAB PO SCH (20:16)
[2017-11-03 05:40] VITALS: BP 144/84; PULSE 92; RESP 14; TEMP 98
[2017-11-03] MEDS: hydrOXYzine PAMOATE 25 MG CAP PO PRN (05:51)
[2017-11-03] MEDS ORDERED: VENLAFAXINE HCL ER 150 MG CAP PO SCH (09:00)
[2017-11-03] MEDS ORDERED: ARIPiprazole 10 MG TAB PO SCH (09:00)
[2017-11-03] MEDS: MAG HYDROX/AL HYDROX/SIMETH 30 ML CUP PO PRN (11:46)
--- NOTE | 2017-11-03 16:37 | P.DS ---
Providers Date of admission: 10/28/17 21:18 Expected date of discharge: 11/03/17 Attending physician: Dominic Redd Consults: 11/01/17 11:40 Consult Physician Routine Consulting Provider: Wagner Mcpherson Consult Reason/Comments: syncope, tachycardia Do you want consulting provider notified?: Yes 10/28/17 22:37 Consult Physician Routine Consulting Provider: Cris Lui Consult Reason/Comments: H and P with medical follow up Do you want consulting provider notified?: Already Contacted Primary care physician: Windy Shetty Hospital Course: Hospital Course: Identifying information/background information/hospital course: The patient is 22-year-old female who lives with a boyfriend and 2 roommates was prompted to emergency department for psychiatric evaluation after she had thoughts of self-harm and effort to cut herself. The patient has long history of depression and PTSD symptoms. Patient had received some outpatient treatment for her psychiatric problems but she didn't follow up and she didn't continue her medication. Reported symptoms of depression lack of motivation, and poor energy. She endorses a history of mood fluctuation, and bouts of severe irritability and could be very agitated. The patient reported symptoms of borderline including confusion about herself and fear of abandonment besides she has history of self-inflicted injuries. The patient has been admitted since 10/28/2017, and she was started on psychotropic medication Zyprexa as a mood stabilizer and continued preadmission medications Zoloft. The patient developed episodes of severe hypotension and fainting after she started the medication. The patient has high heart rate and increased blood pressure. She has been evaluated by the cardiology team and echocardiogram and a VQ scan was obtained which came back negative. The psychotropic medication has been stopped and the patient was started on Abilify as a mood stabilizer and Effexor for depression symptoms. The medication doses has been adjusted to optimize the stability of the psychiatric symptoms including her symptoms. The patient was admitted for a safe and supportive environment. A psychiatric, medical, and psychosocial evaluations were done on admission. Medications were initiated, monitored and adjusted. The patients hospital stay is unremarkable. Patient did not exhibit any aggression towards herself or others during her hospitalization. The patient attended all her groups and was compliant with her medications. Patient got along with her peers and with staff. He was subsequently discharged stable and appropriate to continue treatment on an outpatient basis. Mental status examination on discharge: The patient is alert, oriented, pleasant, and cooperative. The patient has good eye contact. The patient is dressed appropriately in casual attire. The patient has appropriate hygiene and grooming. The patient has normal gait. She has normal speech. She reports improved mood. The patient has appropriate and congruent affect. Patient has a reactive affect. Patient has no thoughts to harm herself or others. Patient is not experiencing any hallucinations. Patient is not delusional. The patient has good insight and judgment. She is not a danger to herself or others. The patient has fair fund of knowledge and average intellectual function. Discharge diagnoses: Major depressive disorder recurrent without psychotic features PTSD Rule out bipolar 2 disorder Rule out borderline personality disorder Plan: Patient will continue follow-up at-. As per discharge plan Continue the following medications: As per discharge plan Last Lab obtained: CBC, CMP, Lipid panel, and thyroid panel was in normal level besides TSH 6.9 and free T3 5.9 UDS at admission positive for marijuana Other Labs: Repeated thyroid panel on 10/30/2017 TSH was in normal level and free T3 still 5.9 Two-dimensional echo: normal finding VQ scan lung to rule out PE: Normal finding Patient has follow-up cardiology appointment as an outpatient. Patient Condition at Discharge: Stable Patient will be discharge to home Patient Condition at Discharge: Undetermined Plan - Discharge Summary Discharge Rx Participant: No New Discharge Prescriptions: New ARIPiprazole [Abilify] 10 mg PO DAILY #30 tab hydrOXYzine PAMOATE [Vistaril] 25 mg PO QID PRN #120 cap PRN Reason: Anxiety Ondansetron Odt [Zofran ODT] 4 mg PO Q8HR PRN #30 tab PRN Reason: Nausea And Vomiting traZODone HCL [Desyrel] 75 mg PO HS #45 tab Venlafaxine HCl ER [Effexor XR] 150 mg PO DAILY #30 cap.er.24h Discontinued Sertraline [Zoloft] 50 mg PO DAILY Discharge Medication List ARIPiprazole [Abilify] 10 mg PO DAILY #30 tab 11/03/17 [Rx] Ondansetron Odt [Zofran ODT] 4 mg PO Q8HR PRN #30 tab 11/03/17 [Rx] Venlafaxine HCl ER [Effexor XR] 150 mg PO DAILY #30 cap.er.24h 11/03/17 [Rx] hydrOXYzine PAMOATE [Vistaril] 25 mg PO QID PRN #120 cap 11/03/17 [Rx] traZODone HCL [Desyrel] 75 mg PO HS #45 tab 11/03/17 [Rx] Follow up Appointment(s)/Referral(s): [facility] [Outside] - 11/07/17 3:00 pm (José @ 15:00 Dr Smith 11/10/2017 @ 10:20 am ) Dio Herrera MD [STAFF PHYSICIAN] - 1 Week Windy Shetty DO [Primary Care Provider] - 1-2 days (Follow up with PCP to have repeated thyroid functioning tests in 1-2 months. ) Patient Instructions/Handouts: Depression (DC), Suicide Prevention for Adults ( DC) Activity/Diet/Wound Care/Special Instructions: No alcohol or street drugs. No guns or weapons. Keep your follow up appointments as scheduled. Continue medications as prescribed. Crisis phone line . Discharge Disposition: HOME SELF-CARE
== END 2017-11-03 12:30 | disposition home or self-care (01) | DRG 885 ==
LOC: EC 17:08 → 3MHU 21:18
PROVIDERS: ADMIT Psychiatry & Neurology Psychiatry; ATTEND Psychiatry & Neurology Psychiatry
DX: F33.2 Major depressive disorder, recurrent severe without psychotic features (principal); D69.3 Immune thrombocytopenic purpura; R45.851 Suicidal ideations; F60.3 Borderline personality disorder; E66.9 Obesity, unspecified; F12.90 Cannabis use, unspecified, uncomplicated; F41.0 Panic disorder [episodic paroxysmal anxiety]; F43.10 Post-traumatic stress disorder, unspecified; K58.9 Irritable bowel syndrome, unspecified; Z79.899 Other long term (current) drug therapy; Z81.8 Family history of other mental and behavioral disorders; Z82.49 Family history of ischemic heart disease and other diseases of the circulatory system; R07.89 Other chest pain
CPT/HCPCS: 78582; 80053; 80061; 80306; 81003; 81025; 82075; 83036; 84439; 84443; 84481; 85025; 87086; 87491; 87591; 93005; 93306; 99285

== ENCOUNTER 2018-05-01 07:29 | Emergency (ER) | payer BC, MEDICAID ==
[2018-05-01] MEDS ORDERED: SODIUM CHLORIDE 0.9% 1,000 ML IV STA (07:42)
[2018-05-01] MEDS ORDERED: KETOROLAC 30 MG/ML 1 ML VIAL IVP STA (07:42)
[2018-05-01] MEDS ORDERED: ONDANSETRON 4 MG/2 ML VIAL IVP STA (07:42)
--- NOTE | 2018-05-01 08:23 | ED ---
General Adult HPI - General Chief complaint: Urogenital Stated complaint: UTI/Rt flank pain Time Seen by Provider: 05/01/18 07:39 Source: patient, RN notes reviewed Mode of arrival: ambulatory Limitations: no limitations - History of Present Illness Initial comments: Patient 23-year-old male presented to the emergency room today with a chief complaint of dysuria over the last 2 days. Patient does admit that when to the family doctor yesterday was diagnosed with urinary tract infection given a prescription for antibiotics but was unable to get it filled. Patient states began having increased right-sided flank pain that started last night. States also experiencing some nausea. Denies any other complaints currently. Patient denies any recent fever, chills, shortness of breath, chest pain, abdominal pain , nausea or vomiting, constipation or diarrhea, headaches or visual changes, or any other complaints. - Related Data Home Medications Medication Instructions Recorded Confirmed Venlafaxine HCl [Effexor XR] 75 mg PO DAILY 05/01/18 05/01/18 hydrOXYzine PAMOATE [Vistaril] 25 mg PO TID PRN 05/01/18 05/01/18 Previous Rx's Medication Instructions Recorded ARIPiprazole [Abilify] 10 mg PO DAILY #30 tab 11/03/17 Sulfamethox-Tmp 800-160Mg [Bactrim 1 tab PO Q12HR #20 tab 05/01/18 DS 800-160 mg] Allergies Allergy/AdvReac Type Severity Reaction Status Date / Time olanzapine [From Zyprexa] Allergy Unknown Verified 05/01/18 09:01 Review of Systems ROS Statement: Those systems with pertinent positive or pertinent negative responses have been documented in the HPI. ROS Other: All systems not noted in ROS Statement are negative. 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 Date of last positivie culture/infection: 2015 MDRO Source:: urine Past Surgical History: No Surgical Hx Reported Past Anesthesia/Blood Transfusion Reactions: No Reported Reaction Past Psychological History: Anxiety, Depression Smoking Status: Never smoker Past Alcohol Use History: Occasional Past Drug Use History: Marijuana - Past Family History Father Additional Family Medical History / Comment(s): Bipolar Mother Family Medical History: Hypertension, Pulmonary Embolus Additional Family Medical History / Comment(s): Depression, Anxiety, PTSD Sister(s) Family Medical History: No Reported History Brother(s) Family Medical History: No Reported History General Exam - General Exam Comments Initial Comments: General: The patient is awake and alert, in no distress, and does not appear acutely ill. Eye: Pupils are equal, round and reactive to light, extra-ocular movements are intact. No nystagmus. There is normal conjunctiva bilaterally. No signs of icterus. Ears, nose, mouth and throat: There are moist mucous membranes and no oral lesions. Neck: The neck is supple, there is no tenderness or JVD. Cardiovascular: There is a regular rate and rhythm. No murmur, rub or gallop is appreciated. Respiratory: Lungs are clear to auscultation, respirations are non-labored, breath sounds are equal. No wheezes, stridor, rales, or rhonchi. Gastrointestinal: Abdomen soft on palpation. Mild diffuse tenderness throughout the abdomen. No rebound, guarding. Mild right-sided CVA tenderness. Musculoskeletal: Normal ROM, no tenderness. Strength 5/5. Sensation intact. Pulses equal bilaterally 2+. Neurological: A&O x 3. CN II-XII intact, There are no obvious motor or sensory deficits. Coordination appears grossly intact. Speech is normal. Skin: Skin is warm and dry and no rashes or lesions are noted. Psychiatric: Cooperative, appropriate mood & affect, normal judgment. Limitations: no limitations Course Vital Signs 05/01/18 05/01/18 07:32 09:14 Temperature 98 F 99.0 F Pulse Rate 91 63 Respiratory 20 18 Rate Blood Pressure 127/83 107/56 O2 Sat by Pulse 100 98 Oximetry Medical Decision Making - Medical Decision Making Case discussed in detail with attending physician Dr. Flores. Patient's labs been reviewed does show 15,000 white count. Urinalysis was positive nitrate with large amount of white cells. Results were discussed with patient. She is reexamined at this time shows no signs of stress states she is feeling better. Patient was given 2 g Rocephin here in the emergency room. Patient is agreeable to discharge and outpatient antibiotics at this time. Patient is advised close follow-up over the next 2 days return if there is any fever or increase or worsening symptoms. Patient states understanding and is in agreement. - Lab Data Result diagrams: 05/01/18 08:19 05/01/18 08:19 Lab Results 05/01/18 05/01/18 05/01/18 Range/Units 07:37 07:37 08:19 WBC (3.8-10.6) k/uL RBC (3.80-5.40) m/uL Hgb (11.4-16.0) gm/dL Hct (34.0-46.0) % MCV (80.0-100.0) fL MCH (25.0-35.0) pg MCHC (31.0-37.0) g/dL RDW (11.5-15.5) % Plt Count (150-450) k/uL Neutrophils % % Lymphocytes % % Monocytes % % Eosinophils % % Basophils % % Neutrophils # (1.3-7.7) k/uL Lymphocytes # (1.0-4.8) k/uL Monocytes # (0-1.0) k/uL Eosinophils # (0-0.7) k/uL Basophils # (0-0.2) k/uL Sodium 140 (137-145) mmol/L Potassium 4.5 (3.5-5.1) mmol/L Chloride 102 (98-107) mmol/L Carbon Dioxide 27 (22-30) mmol/L Anion Gap 11 mmol/L BUN 11 (7-17) mg/dL Creatinine 0.72 (0.52-1.04) mg/dL Est GFR (CKD-EPI)AfAm >90 (>60 ml/min/1.73 sqM) Est GFR (CKD-EPI)NonAf >90 (>60 ml/min/1.73 sqM) Glucose 106 H (74-99) mg/dL Calcium 9.6 (8.4-10.2) mg/dL Total Bilirubin 0.4 (0.2-1.3) mg/dL AST 20 (14-36) U/L ALT 23 (9-52) U/L Alkaline Phosphatase 51 (38-126) U/L Total Protein 7.3 (6.3-8.2) g/dL Albumin 4.3 (3.5-5.0) g/dL Amylase 56 (30-110) U/L Lipase 54 (23-300) U/L Urine Color Yellow Urine Appearance Turbid H (Clear) Urine pH 6.0 (5.0-8.0) Ur Specific [place] 1.014 (1.001-1.035) Urine Protein 2+ H (Negative) Urine Glucose (UA) Negative (Negative) Urine Ketones Negative (Negative) Urine Blood Large H (Negative) Urine Nitrite Positive H (Negative) Urine Bilirubin Negative (Negative) Urine Urobilinogen <2.0 (<2.0) mg/dL Ur Leukocyte Esterase Large H (Negative) Urine RBC >182 H (0-5) /hpf Urine WBC >182 H (0-5) /hpf Urine WBC Clumps Many H (None) /hpf Urine Mucus Rare H (None) /hpf Urine Yeast (Budding) Many H (None) /hpf Urine HCG, Qual Not Detected (Not Detectd) 05/01/18 Range/Units 08:19 WBC 15.8 H (3.8-10.6) k/uL RBC 4.96 (3.80-5.40) m/uL Hgb 15.1 (11.4-16.0) gm/dL Hct 45.4 (34.0-46.0) % MCV 91.5 (80.0-100.0) fL MCH 30.4 (25.0-35.0) pg MCHC 33.3 (31.0-37.0) g/dL RDW 13.5 (11.5-15.5) % Plt Count 271 (150-450) k/uL Neutrophils % 77 % Lymphocytes % 16 % Monocytes % 4 % Eosinophils % 1 % Basophils % 1 % Neutrophils # 12.1 H (1.3-7.7) k/uL Lymphocytes # 2.6 (1.0-4.8) k/uL Monocytes # 0.6 (0-1.0) k/uL Eosinophils # 0.2 (0-0.7) k/uL Basophils # 0.1 (0-0.2) k/uL Sodium (137-145) mmol/L Potassium (3.5-5.1) mmol/L Chloride (98-107) mmol/L Carbon Dioxide (22-30) mmol/L Anion Gap mmol/L BUN (7-17) mg/dL Creatinine (0.52-1.04) mg/dL Est GFR (CKD-EPI)AfAm (>60 ml/min/1.73 sqM) Est GFR (CKD-EPI)NonAf (>60 ml/min/1.73 sqM) Glucose (74-99) mg/dL Calcium (8.4-10.2) mg/dL Total Bilirubin (0.2-1.3) mg/dL AST (14-36) U/L ALT (9-52) U/L Alkaline Phosphatase (38-126) U/L Total Protein (6.3-8.2) g/dL Albumin (3.5-5.0) g/dL Amylase (30-110) U/L Lipase (23-300) U/L Urine Color Urine Appearance (Clear) Urine pH (5.0-8.0) Ur Specific [place] (1.001-1.035) Urine Protein (Negative) Urine Glucose (UA) (Negative) Urine Ketones (Negative) Urine Blood (Negative) Urine Nitrite (Negative) Urine Bilirubin (Negative) Urine Urobilinogen (<2.0) mg/dL Ur Leukocyte Esterase (Negative) Urine RBC (0-5) /hpf Urine WBC (0-5) /hpf Urine WBC Clumps (None) /hpf Urine Mucus (None) /hpf Urine Yeast (Budding) (None) /hpf Urine HCG, Qual (Not Detectd) Disposition Clinical Impression: UTI (urinary tract infection) Disposition: HOME SELF-CARE Condition: Good Instructions: Urinary Tract Infection in Women (ED) Additional Instructions: Please use medication as discussed. Please follow-up with family doctor in the next 2 days. Please return to emergency room if the symptoms increase or worsen or for any other concerns. Prescriptions: Sulfamethox-Tmp 800-160Mg [Bactrim DS 800-160 mg] 1 tab PO Q12HR #20 tab Is patient prescribed a controlled substance at d/c from ED?: No Referrals: Windy Shetty DO [Primary Care Provider] - 1-2 days Time of Disposition: 09:34
[2018-05-01 08:36] LABS: Basophils # (A) 0.1 k/uL (0-0.2); Basophils % (A) 1 %; Eosinophils # (A) 0.2 k/uL (0-0.7); Eosinophils % (A) 1 %; HCT 45.4 % (34.0-46.0); HGB 15.1 gm/dL (11.4-16.0); Lymphocytes # (A) 2.6 k/uL (1.0-4.8); Lymphocytes % (A) 16 %; MCH 30.4 pg (25.0-35.0); MCHC 33.3 g/dL (31.0-37.0); MCV 91.5 fL (80.0-100.0); Mean Platelet Volume 7.1; Monocytes # (A) 0.6 k/uL (0-1.0); Monocytes % (A) 4 %; Neutrophils # (A) 12.1 k/uL (1.3-7.7); Neutrophils % (A) 77 %; Platelet Count 271 k/uL (150-450); RBC 4.96 m/uL (3.80-5.40); RDW 13.5 % (11.5-15.5); WBC 15.8 k/uL (3.8-10.6)
[2018-05-01 09:02] LABS: Appearance,Urine Turbid (Clear); Bilirubin,Urine Negative (Negative); Blood,Urine Large (Negative); Budding Yeast,Urine Many /hpf; Color,Urine Yellow; Glucose,Urine (UA) Negative (Negative); Ketones,Urine Negative (Negative); Leukocyte Esterase,Urine Large (Negative); Mucus,Urine Rare /hpf; Nitrite,Urine Positive (Negative); Protein,Urine 2+ (Negative); RBC,Urine >182 /hpf (0-5); Specific Gravity,Urine 1.014 (1.001-1.035); Urobilinogen,Urine <2.0 mg/dL (<2.0); WBC,Urine >182 /hpf (0-5)
[2018-05-01 09:03] LABS: ALT 23 U/L (9-52); AST 20 U/L (14-36); Albumin 4.3 g/dL (3.5-5.0); Alkaline Phosphatase 51 U/L (38-126); Amylase 56 U/L (30-110); Anion Gap 11 mmol/L; Blood Urea Nitrogen 11 mg/dL (7-17); Calcium 9.6 mg/dL (8.4-10.2); Carbon Dioxide 27 mmol/L (22-30); Chloride 102 mmol/L (98-107); Glucose 106 mg/dL (74-99); Lipase 54 U/L (23-300); Potassium 4.5 mmol/L (3.5-5.1); Sodium 140 mmol/L (137-145); Total Bilirubin 0.4 mg/dL (0.2-1.3); Total Protein 7.3 g/dL (6.3-8.2)
--- NOTE | 2018-05-01 09:06 | XR ---
EXAMINATION TYPE: XR KUB DATE OF EXAM: 05/01/2018 8:59 AM CLINICAL HISTORY: Abdominal pain TECHNIQUE: Single upright image of the abdomen is obtained. COMPARISON: 02/03/2017. FINDINGS: The liver is elongated extending past the iliac crest. This could represent a Lydia lobe, normal variant, or hepatomegaly. This finding is unchanged from the prior. Scattered gas is seen in n on-distended small bowel loops. Gas and fecal material is seen in non-distended colon. There is no pn eumoperitoneum, or abnormal calcification appreciated. The lung bases are clear and the osseous struc tures are intact. IMPRESSION: Nonobstructive bowel gas pattern.
[2018-05-01] MEDS ORDERED: cefTRIAXone 2,000 MG in SODIUM CHLORIDE 0.9% 100 ML IVPB STA (09:12)
[2018-05-01] MEDS ORDERED: cefTRIAXone IN SWFI 2,000 MG/20 ML SYRINGE IVP ONE (09:15)
[2018-05-01 09:16] VITALS: RESP 18; TEMP 99
[2018-05-01 09:52] VITALS: BP 106/58; PULSE 71
== END 2018-05-01 09:54 | disposition home or self-care (01) ==
LOC: EC 07:29
DX: N39.0 Urinary tract infection, site not specified (principal); F41.9 Anxiety disorder, unspecified; F32.9 Major depressive disorder, single episode, unspecified; Z86.14 Personal history of Methicillin resistant Staphylococcus aureus infection; Z79.899 Other long term (current) drug therapy; Z88.8 Allergy status to other drugs, medicaments and biological substances
CPT/HCPCS: 36415; 80053; 82150; 83690; 85025; 81001; 81025; 87086; 74018; 99283; 96374; 96375 ×2; 96361 ×2; J2405; J0696; J1885; 87077; 87186

== ENCOUNTER 2018-06-25 15:42 | Inpatient (IN) | payer BC ==
--- NOTE | 2018-06-25 17:20 | ED ---
Psych HPI - General Source: patient, RN notes reviewed Mode of arrival: ambulatory Limitations: no limitations <Yokasta Frye - Last Filed: 06/25/18 19:24> <Afsaneh Hutchinson - Last Filed: 07/02/18 22:27> - General Chief Complaint: Psychiatric Symptoms Stated Complaint: mental health Time Seen by Provider: 06/25/18 16:20 - History of Present Illness Initial Comments: This is a 23-year-old female who presents to the emergency department for mental evaluation. Patient reports "I am sad." She states that she sees a psychiatrist that works here Dr. Nemesio Glover. She states that 2 weeks ago she was taken off of her Effexor and Abilify and placed on Lamictal. Patient states that over the past week she has had suicidal ideation and plans to overdose no her pills. Denies homicidal ideation. Denies alcohol use but does admit to marijuana use. Denies auditory or visual hallucinations. Patient denies any suicide attempts. She denies any recent illnesses or infections. States that she has no medical issues and no allergies. Denies recent fevers or chills, shortness of breath or chest pain, abdominal pain, nausea or vomiting, diarrhea or constipation, dysuria. (Yokasta Frye) - Related Data Home Medications Medication Instructions Recorded Confirmed hydrOXYzine PAMOATE [Vistaril] 25 mg PO TID PRN 05/01/18 06/25/18 Previous Rx's Medication Instructions Recorded ARIPiprazole [Abilify] 10 mg PO DAILY #14 tab 06/29/18 lamoTRIgine [LaMICtal] 50 mg PO DAILY tab 06/29/18 lamoTRIgine [LaMICtal] 100 mg PO DAILY #14 tab 06/29/18 traZODone HCL [Desyrel] 50 mg PO HS #14 tab 06/29/18 Allergies Allergy/AdvReac Type Severity Reaction Status Date / Time olanzapine [From Zyprexa] Allergy Unknown Verified 06/25/18 22:06 Review of Systems ROS Other: All systems not noted in ROS Statement are negative. <Yokasta Frye - Last Filed: 06/25/18 19:24> ROS Other: All systems not noted in ROS Statement are negative. <Afsaneh Hutchinson - Last Filed: 07/02/18 22:27> ROS Statement: Those systems with pertinent positive or pertinent negative responses have been documented in the HPI. 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 Date of last positivie culture/infection: 2015 MDRO Source:: urine Past Surgical History: No Surgical Hx Reported Past Anesthesia/Blood Transfusion Reactions: No Reported Reaction Past Psychological History: Anxiety, Depression Smoking Status: Never smoker Past Alcohol Use History: Occasional Past Drug Use History: Marijuana - Past Family History Father Additional Family Medical History / Comment(s): Bipolar Mother Family Medical History: Hypertension, Pulmonary Embolus Additional Family Medical History / Comment(s): Depression, Anxiety, PTSD Sister(s) Family Medical History: No Reported History Brother(s) Family Medical History: No Reported History <Yokasta Frye M - Last Filed: 06/25/18 19:24> General Exam Limitations: no limitations <Yokasta Frye - Last Filed: 06/25/18 19:24> <Afsaneh Hutchinson P - Last Filed: 07/02/18 22:27> - General Exam Comments Initial Comments: General: Awake and alert, well-developed; in no apparent distress. Mother and are at bedside. HEENT: Head atraumatic, normocephalic. Pupils are equal, round and reactive to light. Extraocular movements intact. Oropharynx moist without erythema or exudate. Neck: Supple. Normal ROM. Cardiovascular: Regular rate and rhythm. No murmurs, rubs or gallops. Chest symmetrical. Respiratory: Lungs clear to auscultation bilaterally. No wheezes, rales or rhonchi. Normal respiratory effort with no use of accessory muscles. Abdomen: Soft, non-tender, non-distended. No rigidity, rebound or guarding. Normal bowel sounds in all 4 quadrants. Musculoskeletal: Normal ROM, no tenderness bilateral upper and lower extremities. Ambulating normally. Skin: [place], warm and dry without rashes or lesions. Neurological: Alert and oriented x3. CN II-XII grossly intact. Speech is fluent and answers are appropriate. No focal neuro deficits. Psychiatric: Normal mood and affect. Good insight and judgment. (Amelia,Yokasta M) Vital Signs 06/25/18 06/25/18 15:58 19:01 Temperature 98.2 F 98.6 F Pulse Rate 82 84 Respiratory 18 20 Rate Blood Pressure 118/78 122/71 O2 Sat by Pulse 99 100 Oximetry Medical Decision Making <Yokasta Frye - Last Filed: 06/25/18 19:24> - Lab Data Result diagrams: 06/26/18 08:02 06/26/18 08:02 <Afsaneh Hutchinson - Last Filed: 07/02/18 22:27> - Medical Decision Making This is a 23-year-old female who presents to the emergency department with chief complaint of suicidal ideation. Patient reports feeling suicidal with a plan to overdose on her pills for the past one week. She states that 2 weeks ago her psychiatrist stopped her Effexor and Abilify and placed her on Lamictal. No recent illnesses or infections. Patient was evaluated by EPS and they are recommending admission to the psychiatric unit. Patient does not contract for safety. BAT was negative and urine drug screen was positive for marijuana, however patient does admit to this. Vital signs have been stable and she is in no acute distress. She will be admitted at this time. (Yokasta Frye) - Lab Data Lab Results 06/25/18 06/25/18 Range/Units 18:19 18:19 Urine Color Yellow Urine Appearance Clear (Clear) Urine pH 6.0 (5.0-8.0) Ur Specific [place] 1.022 (1.001-1.035) Urine Protein Negative (Negative) Urine Glucose (UA) Negative (Negative) Urine Ketones Negative (Negative) Urine Blood Negative (Negative) Urine Nitrite Negative (Negative) Urine Bilirubin Negative (Negative) Urine Urobilinogen <2.0 (<2.0) mg/dL Ur Leukocyte Esterase Negative (Negative) Urine Opiates Screen Not Detected (NotDetected) Ur Oxycodone Screen Not Detected (NotDetected) Urine Methadone Screen Not Detected (NotDetected) Ur Propoxyphene Screen Not Detected (NotDetected) Ur Barbiturates Screen Not Detected (NotDetected) U Tricyclic Antidepress Not Detected (NotDetected) Ur Phencyclidine Scrn Not Detected (NotDetected) Ur Amphetamines Screen Not Detected (NotDetected) U Methamphetamines Scrn Not Detected (NotDetected) U Benzodiazepines Scrn Not Detected (NotDetected) Urine Cocaine Screen Not Detected (NotDetected) U Marijuana (THC) Screen Detected H (NotDetected) Disposition Is patient prescribed a controlled substance at d/c from ED?: No <Yokasta Frye M - Last Filed: 06/25/18 19:24> <Afsaneh Hutchinson P - Last Filed: 07/02/18 22:27> Clinical Impression: Suicidal ideation, Depression Disposition: ADMITTED IP TO THIS HOSP Condition: Stable
[2018-06-25 18:33] LABS: Amphetamine Screen,Urine Not Detected (NotDetected); Barbiturate Screen,Urine Not Detected (NotDetected); Benzodiazepines Screen,Urine Not Detected (NotDetected); Cocaine Screen,Urine Not Detected (NotDetected); Methadone Screen, Urine Not Detected (NotDetected); Opiate Screen,Urine Not Detected (NotDetected); Oxycodone Screen, Urine Not Detected (NotDetected); Phencyclidine Screen,Urine Not Detected (NotDetected); Tricyclic Antidepressant,Urine Not Detected (NotDetected); Urn Cannabinoid Scrn Detected (NotDetected)
[2018-06-25] MEDS ORDERED: MAGNESIUM HYDROXIDE 2,400 MG/10 ML CUP PO PRN (18:57)
[2018-06-25] MEDS ORDERED: ACETAMINOPHEN TAB 325 MG TAB PO PRN (18:57)
[2018-06-25] MEDS ORDERED: ZIPRASIDONE 20 MG VIAL IM PRN (18:57)
[2018-06-25] MEDS ORDERED: MAG HYDROX/AL HYDROX/SIMETH 30 ML CUP PO PRN (18:57)
[2018-06-25 19:13] LABS: Appearance,Urine Clear (Clear); Bilirubin,Urine Negative (Negative); Blood,Urine Negative (Negative); Color,Urine Yellow; Glucose,Urine (UA) Negative (Negative); Ketones,Urine Negative (Negative); Leukocyte Esterase,Urine Negative (Negative); Nitrite,Urine Negative (Negative); Protein,Urine Negative (Negative); Specific Gravity,Urine 1.022 (1.001-1.035); Urobilinogen,Urine <2.0 mg/dL (<2.0)
[2018-06-25] MEDS: lamoTRIgine 25 MG TAB PO SCH (21:23)
[2018-06-26] MEDS: LORazepam 1 MG TAB PO PRN ×2 (00:04→08:43)
[2018-06-26] MEDS: lamoTRIgine 25 MG TAB PO SCH (08:08)
[2018-06-26 08:26] LABS: Basophils # (A) 0.1 k/uL (0-0.2); Basophils % (A) 1 %; Eosinophils # (A) 0.2 k/uL (0-0.7); Eosinophils % (A) 3 %; HCT 45.5 % (34.0-46.0); HGB 15.3 gm/dL (11.4-16.0); Lymphocytes # (A) 4.1 k/uL (1.0-4.8); Lymphocytes % (A) 48 %; MCH 30.7 pg (25.0-35.0); MCHC 33.6 g/dL (31.0-37.0); MCV 91.5 fL (80.0-100.0); Mean Platelet Volume 7.2; Monocytes # (A) 0.7 k/uL (0-1.0); Monocytes % (A) 8 %; Neutrophils # (A) 3.3 k/uL (1.3-7.7); Neutrophils % (A) 39 %; Platelet Count 270 k/uL (150-450); RBC 4.98 m/uL (3.80-5.40); RDW 13.4 % (11.5-15.5); WBC 8.6 k/uL (3.8-10.6)
[2018-06-26 08:43] LABS: ALT 23 U/L (9-52); AST 23 U/L (14-36); Albumin 4.3 g/dL (3.5-5.0); Alkaline Phosphatase 50 U/L (38-126); Anion Gap 9 mmol/L; Blood Urea Nitrogen 11 mg/dL (7-17); Calcium 9.5 mg/dL (8.4-10.2); Carbon Dioxide 25 mmol/L (22-30); Chloride 105 mmol/L (98-107); Cholesterol 187 mg/dL (<200); Glucose 99 mg/dL (74-99); HDL Cholesterol 69 mg/dL (40-60); LDL Cholesterol,Calculated 103 mg/dL (0-99); Potassium 4.1 mmol/L (3.5-5.1); Sodium 139 mmol/L (137-145); Total Bilirubin 0.7 mg/dL (0.2-1.3); Total Protein 7.5 g/dL (6.3-8.2); Triglycerides 76 mg/dL (<150)
[2018-06-26] MEDS ORDERED: lamoTRIgine 25 MG TAB PO STA (09:14)
--- NOTE | 2018-06-26 13:04 | P.HP ---
Psychiatric H&P - . H&P Date: 06/26/18 History & Physical: Allergies Allergy/AdvReac Type Severity Reaction Status Date / Time olanzapine [From Zyprexa] Allergy Unknown Verified 06/25/18 22:06 Vital Signs Temp 98.1 F 06/26/18 00:55 Pulse 104 H 06/26/18 08:45 Resp 20 06/26/18 08:45 BP 132/84 06/26/18 08:45 Pulse Ox 99 06/25/18 19:29 Intake & Output 06/25/18 06/26/18 06/26/18 18:59 06:59 18:59 Weight 90.718 kg Laboratory Last Values WBC 8.6 k/uL (3.8-10.6) 06/26/18 08:02 RBC 4.98 m/uL (3.80-5.40) 06/26/18 08:02 Hgb 15.3 gm/dL (11.4-16.0) 06/26/18 08:02 Hct 45.5 % (34.0-46.0) 06/26/18 08:02 MCV 91.5 fL (80.0-100.0) 06/26/18 08:02 MCH 30.7 pg (25.0-35.0) 06/26/18 08:02 MCHC 33.6 g/dL (31.0-37.0) 06/26/18 08:02 RDW 13.4 % (11.5-15.5) 06/26/18 08:02 Plt Count 270 k/uL (150-450) 06/26/18 08:02 Neutrophils % 39 % 06/26/18 08:02 Lymphocytes % 48 % 06/26/18 08:02 Monocytes % 8 % 06/26/18 08:02 Eosinophils % 3 % 06/26/18 08:02 Basophils % 1 % 06/26/18 08:02 Neutrophils # 3.3 k/uL (1.3-7.7) 06/26/18 08:02 Lymphocytes # 4.1 k/uL (1.0-4.8) 06/26/18 08:02 Monocytes # 0.7 k/uL (0-1.0) 06/26/18 08:02 Eosinophils # 0.2 k/uL (0-0.7) 06/26/18 08:02 Basophils # 0.1 k/uL (0-0.2) 06/26/18 08:02 Sodium 139 mmol/L (137-145) 06/26/18 08:02 Potassium 4.1 mmol/L (3.5-5.1) 06/26/18 08:02 Chloride 105 mmol/L (98-107) 06/26/18 08:02 Carbon Dioxide 25 mmol/L (22-30) 06/26/18 08:02 Anion Gap 9 mmol/L 06/26/18 08:02 BUN 11 mg/dL (7-17) 06/26/18 08:02 Creatinine 0.68 mg/dL (0.52-1.04) 06/26/18 08:02 Est GFR (CKD-EPI)AfAm >90 (>60 ml/min/1.73 sqM) 06/26/18 08:02 Est GFR (CKD-EPI)NonAf >90 (>60 ml/min/1.73 sqM) 06/26/18 08:02 Glucose 99 mg/dL (74-99) 06/26/18 08:02 Calcium 9.5 mg/dL (8.4-10.2) 06/26/18 08:02 Total Bilirubin 0.7 mg/dL (0.2-1.3) 06/26/18 08:02 AST 23 U/L (14-36) 06/26/18 08:02 ALT 23 U/L (9-52) 06/26/18 08:02 Alkaline Phosphatase 50 U/L (38-126) 06/26/18 08:02 Total Protein 7.5 g/dL (6.3-8.2) 06/26/18 08:02 Albumin 4.3 g/dL (3.5-5.0) 06/26/18 08:02 Triglycerides 76 mg/dL (<150) 06/26/18 08:02 Cholesterol 187 mg/dL (<200) 06/26/18 08:02 LDL Cholesterol, Calc 103 mg/dL (0-99) H 06/26/18 08:02 HDL Cholesterol 69 mg/dL (40-60) H 06/26/18 08:02 TSH 4.070 mIU/L (0.465-4.680) 06/26/18 08:02 Urine Color Yellow 06/25/18 18:19 Urine Appearance Clear (Clear) 06/25/18 18:19 Urine pH 6.0 (5.0-8.0) 06/25/18 18:19 Ur Specific [place] 1.022 (1.001-1.035) 06/25/18 18:19 Urine Protein Negative (Negative) 06/25/18 18:19 Urine Glucose (UA) Negative (Negative) 06/25/18 18:19 Urine Ketones Negative (Negative) 06/25/18 18:19 Urine Blood Negative (Negative) 06/25/18 18:19 Urine Nitrite Negative (Negative) 06/25/18 18:19 Urine Bilirubin Negative (Negative) 06/25/18 18:19 Urine Urobilinogen <2.0 mg/dL (<2.0) 06/25/18 18:19 Ur Leukocyte Esterase Negative (Negative) 06/25/18 18:19 Urine Opiates Screen Not Detected (NotDetected) 06/25/18 18:19 Ur Oxycodone Screen Not Detected (NotDetected) 06/25/18 18:19 Urine Methadone Screen Not Detected (NotDetected) 06/25/18 18:19 Ur Propoxyphene Screen Not Detected (NotDetected) 06/25/18 18:19 Ur Barbiturates Screen Not Detected (NotDetected) 06/25/18 18:19 U Tricyclic Antidepress Not Detected (NotDetected) 06/25/18 18:19 Ur Phencyclidine Scrn Not Detected (NotDetected) 06/25/18 18:19 Ur Amphetamines Screen Not Detected (NotDetected) 06/25/18 18:19 U Methamphetamines Scrn Not Detected (NotDetected) 06/25/18 18:19 U Benzodiazepines Scrn Not Detected (NotDetected) 06/25/18 18:19 Urine Cocaine Screen Not Detected (NotDetected) 06/25/18 18:19 U Marijuana (THC) Screen Detected (NotDetected) H 06/25/18 18:19 06/26/18 12:48 Identification: Patient is a 23-year-old female who presented to the emergency room reporting that she was having suicidal ideation for the last 2 days and had plans to overdose. She had recently seen her outpatient psychiatrist and had changed her medications History of Present Illness: Patient states that she had been on Effexor and Abilify and states that her symptoms of depression and been increasing over the last 4-5 weeks. She states that she noticed she was continuing to feel depressed and spoke with her outpatient psychiatrist who discontinued her Abilify and Effexor and placed her on Lamictal currently titrated to a dose of 50 mg a day. Patient states that she has continued to feel depressed, staying in bed, sleeping more than 10 hours a day, states she is eating too much and states that she is tired with little energy or interest to do things. Patient states she's feeling hopeless and helpless with crying spells and difficulty concentrating or focusing. Patient states her depressive symptoms we began when she was 12 years of age, she said times than when she had suicidal thoughts as as well as wanting to stay in bed all day. She states at the age of 16 she started cutting herself on her thighs, to relieve her mental pain. She states her parents were unaware she was never taken for any treatment or counseling. She states that she had suicidal thoughts then but never made any attempts. Patient states that she spoke with a friend of hers about her feelings and this stopped when she finished high school. Patient states that since that time she's had episodes of depression as described above as well as able to describe episodes where her mood is better and she feels happy and states that she wants to be out of the house she sleeping less and states that she feels good. She states that she spends a lot of money and has an increased interest in sex during these periods of time. Patient states that she sleeps maybe 4-5 hours a night then has more energy and is out doing more. She states that she does feel more irritable at these times and has had suicidal thoughts during these times as well. Patient denies any suicide attempts in the past. Patient also endorses a history of anxiety which she describes as feeling scared on the inside and states that the Vistaril is been helpful for that in the past. Patient states that she's been tried on Celexa, Zoloft, BuSpar and does a real in the past with no improvement in her depressive symptoms. She states on the Abilify 10 mg, Effexor 150 mg Desyrel 75 mg of Vistaril 25 mg when necessary that she was discharged on in September after an inpatient admission that her depression really never improved. She states that she still had these ups and downs in her moods in the last hypomanic. Was several months ago. Patient states that she recently began Lamictal and is currently at 50 mg a day for the last week. Past Psychiatric History: Patient has 1 prior psychiatric admission in September 2017, states that she's been tried on Celexa, Zoloft, BuSpar, Desyrel, Abilify, Effexor, Vistaril and is currently prescribed Lamictal 25 mg twice a day. Patient is seen by Dr Buchanan as an outpatient. Patient states on melatonin she had bad nightmares. Past Medical/Surgical History: Patient denies any current medical history and no surgical history. Family History: Patient states that her father is diagnosed with bipolar disorder and he completed suicide and she was 7 years of age by hanging. She states that her mother is been treated for depression and anxiety. There is no history in the family of alcohol or drug use. Social History: Patient states that she was born and raised in [place] and her parents were until her father completed suicide when she was 7 years of age, he hanged himself and her brother found him. She states that she does have nightmares about this at times. Patient states that she has a brother and a sister. Her mother remarried when she was 9 years of age and states that she has a good relationship with her mother, stepfather and siblings. She completed high school and went on to college and quit after a year due to the difficulties with her mood. She states that she was studying nursing at the time. 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 She was in December of this year, she knew her for 6 years prior to their marriage. She states that they have a good relationship although they are living with his parents in their home along with his sister. She states that her in-laws don't talk much and he doesn't have a good relationship with his family but does have a very good relationship with her family. He is working supervisor twisting department at the [employer] and they're trying to save money to get their own place. They have no children. She denies any abuse history. Substance Use History: Patient states that she uses alcohol 2-3 times a week, hard liquor probably 3-4 ounces at a time. She states that she's been using alcohol since the age of 18. Patient states that she uses marijuana and has used it on a daily basis for the last year trying to treat her anxiety. She denies any other drug use history currently or in the past no IV drug use history and no tobacco use history. Legal History: Patient states she was charged with possession of marijuana Mental status: Appearance/Attitude: Patient is casually dressed, makes good eye contact and is cooperative. Behavior: Patient does not exhibit any psychomotor agitation or retardation. Speech/Language: Speech is of normal volume and rhythm and she is coherent Thought Process: Patient is goal-directed there is no evidence of loose association or flight of ideas Thought Content: Patient denies any auditory or visual hallucinations and no paranoid or delusional ideation is elicited. Patient states that she's feeling hopeless and helpless, having crying spells and feeling depressed with little energy or motivation to do things. Patient states she sleeping greater than 12 hours a day and would like to just stay in bed. She states that she is also overeating and is socially withdrawn. Suicidal/Homicidal Ideation: Patient reports suicidal ideation with thoughts of taking an overdose but no intent to act and no current plan or ideation, no current homicidal ideation Sensorium/Cognition: Patient is alert and oriented to person, place, and time and her recent and remote memory are grossly intact. Patient complains of difficulty focusing and concentrating. Mood/Affect: Mood is depressed her affect is blunted Insight/Judgment: Patient's insight and judgment are fair Intellectual Functioning: Patient's intellectual functioning appears average Strength/Weakness: Patient has a supportive relationship, housing/limited coping skills, conflicted relationship with in-laws Assessment: Patient presents and is able to give a history of depressive episodes, as well as episodes of hypomania. Patient states that on any of the antidepressants her depressive symptoms have never really resolved. Patient states that on the Abilify and Effexor she noticed no changes well reporting an increase in her depressive symptoms over the last months. Patient states that her medications were discontinued and she was placed on Lamictal. Patient states that she's been staying in bed, continues to feel tired and unmotivated with difficulty with her concentration and focus.patient was having suicidal ideation with a plan to take an overdose as a outpatient and presented to the emergency room. She was started on Lamictal was titrated to a dose of 50 mg daily for the last week. Patient reports that her relationship with her is good as well as with her family but the relationship with her in- laws with whom she is living is not a good one. Admission Diagnosis: Bipolar type II disorder, current episode depressed; cannabis use disorder, mild; alcohol use disorder, mild Plan: patient was admitted on a voluntary basis, placed on routine observation in group and activity therapy were ordered. Patient was also ordered routine laboratory studies as well as a medical consultation. Patient and I discussed her medication history in the past we'll continue her Lamictal but combine her dosage to 50 mg once daily. I discussed with her using Lamictal as a mood stabilizer. We also discussed the use and side effects of Latuda to act to target her bipolar depressive symptoms and will begin 20 mg with dinner. Patient stated that she also has been having difficulty staying asleep even though she's been spending a long period of time in bed and will begin 50 mg of trazodone to target her sleep. Patient will also begin Vistaril 25 mg 3 times a day on an as-needed basis for anxiety. Patient was encouraged to attend groups and activities. Will continue to titrate the dose of Lamictal as well as Latuda. Patient requires hospitalization to stabilize her mood.
--- NOTE | 2018-06-26 14:20 | P.CONS ---
History of Present Illness - Reason for Consult Consult date: 06/26/18 Medical management Requesting physician: Robina Patterson - Chief Complaint Depression and suicidal ideation - History of Present Illness This is a 23-year-old female, patient of [facility]. She presented to the hospital with depression and suicidal ideation. We've been consulted for medical management. She's been admitted to the psychiatric floor. Patient reports feeling more depressed over the last couple weeks. About 2 weeks ago on she was taken off of the Abilify and Effexor by her psychiatrist and was started on Lamictal. Patient reports since then she is been feeling more sad and depressed. Patient is been admitted to the psychiatric floor. They have continued Lamictal 50 mg daily also added Geodon, trazodone and Latuda. Medically patient has evidence of mild elevated LDL of 103. Cholesterol 187. Recommend a low-cholesterol diet for now. She denies any chest pain, shortness breath, nausea or vomiting, bowel movement changes or urinary symptoms. Denies any fever or chills or sweats. She does have some postnasal drip that started this morning denies any sinus congestion or headache. At this time discussed with patient about possible Flonase or Claritin. However it is only day 1 of the symptoms and she wants to monitor them off medications. 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 Past Drug Use History: Marijuana Additional Drug Use History / Comment(s): Pt states that she smokes MJ daily- one joint. - Past Family History Father Additional Family Medical History / Comment(s): Bipolar Mother Family Medical History: Hypertension, Pulmonary Embolus Additional Family Medical History / Comment(s): Depression, Anxiety, PTSD Sister(s) Family Medical History: No Reported History Brother(s) Family Medical History: No Reported History Medications and Allergies Home Medications Medication Instructions Recorded Confirmed Type ARIPiprazole [Abilify] 10 mg PO DAILY #30 tab 11/03/17 06/25/18 Rx Venlafaxine HCl [Effexor XR] 75 mg PO DAILY 05/01/18 06/25/18 History hydrOXYzine PAMOATE [Vistaril] 25 mg PO TID PRN 05/01/18 06/25/18 History Allergies Allergy/AdvReac Type Severity Reaction Status Date / Time olanzapine [From Zyprexa] Allergy Unknown Verified 06/25/18 22:06 Physical Exam Vitals: Vital Signs Temp Pulse Pulse Resp BP BP Pulse Ox 06/26/18 08:45 104 H 20 132/84 06/26/18 00:55 98.1 F 80 16 130/80 06/25/18 19:29 98.5 F 92 18 116/68 99 06/25/18 19:01 98.6 F 84 20 122/71 100 06/25/18 15:58 98.2 F 82 18 118/78 99 Intake and Output 06/25/18 06/26/18 06/26/18 22:59 06:59 14:59 Other: Weight 90.718 kg Head normocephalic Neck supple Lungs clear to auscultation bilaterally no wheezing or crackles Heart regular rate and rhythm S1-S2, no rub or gallop Abdomen is soft nontender nondistended positive bowel sounds no hepatosplenomegaly Extremities no edema Neuro alert and orientated to 3 Results CBC & Chem 7: 06/26/18 08:02 06/26/18 08:02 Labs: Abnormal Lab Results - Last 24 Hours (Table) 06/25/18 06/26/18 Range/Units 18:19 08:02 LDL Cholesterol, Calc 103 H (0-99) mg/dL HDL Cholesterol 69 H (40-60) mg/dL U Marijuana (THC) Screen Detected H (NotDetected) Assessment and Plan Assessment: 1. Depression with suicidal ideation: Patient has been admitted to psychiatric unit. Continue with current psychiatric care medications 2. Hyperlipidemia LDL mildly elevated at 103. We'll place her on a low- cholesterol diet. Recommend follow-up with PCP outpatient 3. Daily marijuana use 4. History of IBS 5. History of generalized anxiety disorder and depression 6. History of ITP at 6 years old 7. Post nasal drip symptoms. Will monitor without medications. If symptoms continued to worsen we'll add Flonase and Claritin Thank you for this consultation. We will continue to follow along with you as needed. Time with Patient: Greater than 30 (Greater than 60% of the total time spent in counseling and coordination of care.I performed an examination of the patient and discussed their management with the physician Professor Of Theater. I have reviewed the Physician Professor Of Theater's notes and agree with the documented findings and plan of care)
[2018-06-26] MEDS ORDERED: LURASIDONE 40 MG TAB PO SCH (18:00)
[2018-06-26 19:42] LABS: Hemoglobin A1C 4.9 % (4.0-6.0)
[2018-06-26] MEDS: traZODone HCL 50 MG TAB PO SCH (22:22)
[2018-06-27] MEDS: hydrOXYzine PAMOATE 25 MG CAP PO PRN ×2 (00:11→18:27)
[2018-06-27] MEDS: lamoTRIgine 25 MG TAB PO SCH (08:11)
--- NOTE | 2018-06-27 12:21 | P.PN ---
Progress Note - Text Progress Note Date: 06/27/18 Interval History: Patient is a 23-year-old female who was seen today and she reports that she is feeling okay but still feeling blah. Patient states that she slept only 4 hours last night as she was ruminating about various things and states she was jumping from one idea to another. She states that she is not having any current suicidal ideation. Patient reported no side effects from the medication. She states that she is eating less which she finds to be a good thing. Mental Status: Appearance/Attitude: Patient is casually dressed, makes good eye contact and is cooperative. Behavior: Patient does not display any psychomotor agitation or retardation. Speech/Language: Patient's speech is spontaneous of normal volume and rhythm and she is coherent Thought Process: Patient is goal-directed there is no evidence of loose association or flight of ideas although the patient states that she had some racing thoughts last night while she was trying to go to sleep. Thought Content: Patient denies any auditory or visual hallucinations and no delusions or paranoid ideation were elicited. Patient states that she was ruminating last night about different things and her thoughts would jump from one idea to another. She states that it hasn't been occurring during the day. She reports that she is feeling okay but still kind of blah. Patient states he only slept for 4 hours last night and is eating less. Suicidal/Homicidal Ideation: Patient denies any current suicidal or homicidal ideation Sensorium/Cognition: Patient is alert and oriented to person, place, and time and her recent and remote memory are grossly intact Mood/Affect: Patient's mood is bland and her affect is blunted Insight/Judgment: Patient's insight and judgment are fair Assessment: Patient reports that she had no side effects from the medication, has attended only an occasional group, did not sleep well last evening and so is feeling tired this morning. Patient states that she is still feeling blah, no suicidal thoughts but described racing thoughts last night that kept her awake. It was reported in the team treatment meeting that the patient has been verbalizing multiple somatic complaints, she did not verbalize any of these to me this morning. Plan: Patient will continue on Lamictal 50 mg daily, can be increased on July 03 to 100 mg, continue on Vistaril 25 mg 3 times a day as needed and will increase her Latuda to 40 mg at dinnertime to target her mood. Patient was encouraged to attend groups and activities. Patient requires hospitalization to target her mood.
[2018-06-27] MEDS ORDERED: LURASIDONE 40 MG TAB PO SCH (18:00)
[2018-06-27] MEDS: traZODone HCL 50 MG TAB PO SCH (22:14)
[2018-06-28 05:00] VITALS: RESP 16
[2018-06-28] MEDS: lamoTRIgine 25 MG TAB PO SCH (08:22)
--- NOTE | 2018-06-28 12:15 | P.PN ---
Progress Note - Text Progress Note Date: 06/28/18 Interval History: Patient is a 23-year-old female who was seen today and she reports that she is feeling better, no longer feeling depressed no longer as irritable and no crying spells. She states that she is out of any suicidal thoughts and her mood is not going up and down as much. Patient states that she is concerned about the cost of the Latuda and they have investigated the plan for Latuda through the pharmaceutical company. However the costs per month would still be too high the patient and I discussed going back to [facility]. Her mother had suggested Seroquel. Mental Status: Appearance/Attitude: Patient is casually dressed, makes good eye contact and is cooperative. Behavior: Patient does not exhibit any psychomotor agitation or retardation. Speech/Language: Patient's speech is spontaneous of normal volume and rhythm and she is coherent. Thought Process: Patient is goal-directed there is no evidence of loose association or flight of ideas Thought Content: Patient denies any auditory or visual hallucinations no delusions or paranoid ideation or elicited. Patient states that she is no longer feeling depressed, is much less irritable is no longer having crying spells and her mood is more stable. She reports that she is sleeping well and her appetite is good. Suicidal/Homicidal Ideation: Patient denies any current suicidal or homicidal ideation Sensorium/Cognition: Patient is alert and oriented to person, place, and time and her recent and remote memory are grossly intact Mood/Affect: Patient's mood is stable and her affect is appropriate Insight/Judgment: Patient's insight and judgment are intact Assessment: [facility], as the cost of the Latuda is too high. We reviewed the side effects of Seroquel the patient is concerned about weight gain and she states that the combination she was on before had increased her appetite and caused her to gain significant weight. Patient reports that she felt well on the Latuda her mood was more stable she is no longer feeling suicidal, no longer having any crying spells as a longer feeling hopeless. Patient has been attending groups and activities. She reported no side effects from the current medication combination. Plan: I discussed with the patient going back on Abilify 10 mg to replace the Latuda and continue with Lamictal 50 mg which can be increased on Erin 4. Patient also continues on trazodone 50 mg at bedtime and Vistaril 25 mg 3 times a day as needed. Patient and I discussed discharge tomorrow and let she feels that with the transition from [facility] back to [facility] her mood has worsened and the symptoms have increased.
[2018-06-28] MEDS: ARIPiprazole 10 MG TAB PO SCH (12:24)
[2018-06-28] MEDS: traZODone HCL 50 MG TAB PO SCH (22:00)
[2018-06-29] MEDS: hydrOXYzine PAMOATE 25 MG CAP PO PRN ×2 (00:05→08:22)
[2018-06-29 06:39] VITALS: BP 95/57; PULSE 87; TEMP 97.7
[2018-06-29] MEDS: ARIPiprazole 10 MG TAB PO SCH (08:21)
[2018-06-29] MEDS: lamoTRIgine 25 MG TAB PO SCH (08:21)
--- NOTE | 2018-06-29 09:18 | P.DS ---
Providers Date of admission: 06/25/18 18:52 Expected date of discharge: 06/29/18 Attending physician: Robina Patterson MD Consults: 06/25/18 18:57 Consult Physician Routine Consulting Provider: Cris Lui Consult Reason/Comments: H&P for mental health consult Do you want consulting provider notified?: Yes Primary care physician: Windy Shetty Hospital Course: Discharge Diagnosis: Bipolar type II disorder, current episode depressed; cannabis use disorder, mild; alcohol use disorder, mild Reason for Admission: Patient is a 23-year-old female who presented to the emergency room reporting that she was having suicidal ideation for the last 2 days and had plans to overdose. She had recently seen her outpatient psychiatrist and had changed her medications. Patient states that she had been on Effexor and Abilify and states that her symptoms of depression and been increasing over the last 4-5 weeks. She states that she noticed she was continuing to feel depressed and spoke with her outpatient psychiatrist who discontinued her Abilify and Effexor and placed her on Lamictal currently titrated to a dose of 50 mg a day. Patient states that she has continued to feel depressed, staying in bed, sleeping more than 10 hours a day, states she is eating too much and states that she is tired with little energy or interest to do things. Patient states she's feeling hopeless and helpless with crying spells and difficulty concentrating or focusing. Patient states her depressive symptoms we began when she was 12 years of age, she said times than when she had suicidal thoughts as as well as wanting to stay in bed all day. She states at the age of 16 she started cutting herself on her thighs, to relieve her mental pain. She states her parents were unaware she was never taken for any treatment or counseling. She states that she had suicidal thoughts then but never made any attempts. Patient states that she spoke with a friend of hers about her feelings and this stopped when she finished high school. Patient states that since that time she's had episodes of depression as described above as well as able to describe episodes where her mood is better and she feels happy and states that she wants to be out of the house she sleeping less and states that she feels good. She states that she spends a lot of money and has an increased interest in sex during these periods of time. Patient states that she sleeps maybe 4-5 hours a night then has more energy and is out doing more. She states that she does feel more irritable at these times and has had suicidal thoughts during these times as well. Patient denies any suicide attempts in the past. Patient also endorses a history of anxiety which she describes as feeling scared on the inside and states that the Vistaril is been helpful for that in the past. Patient states that she's been tried on Celexa, Zoloft, BuSpar and does a real in the past with no improvement in her depressive symptoms. She states on the Abilify 10 mg, Effexor 150 mg Desyrel 75 mg of Vistaril 25 mg when necessary that she was discharged on in September after an inpatient admission that her depression really never improved. She states that she still had these ups and downs in her moods in the last hypomanic. Was several months ago. Patient states that she recently began Lamictal and is currently at 50 mg a day for the last week. Mental status on Admission: Appearance/Attitude: Patient is casually dressed, makes good eye contact and is cooperative. Behavior: Patient does not exhibit any psychomotor agitation or retardation. Speech/Language: Speech is of normal volume and rhythm and she is coherent Thought Process: Patient is goal-directed there is no evidence of loose association or flight of ideas Thought Content: Patient denies any auditory or visual hallucinations and no paranoid or delusional ideation is elicited. Patient states that she's feeling hopeless and helpless, having crying spells and feeling depressed with little energy or motivation to do things. Patient states she sleeping greater than 12 hours a day and would like to just stay in bed. She states that she is also overeating and is socially withdrawn. Suicidal/Homicidal Ideation: Patient reports suicidal ideation with thoughts of taking an overdose but no intent to act and no current plan or ideation, no current homicidal ideation Sensorium/Cognition: Patient is alert and oriented to person, place, and time and her recent and remote memory are grossly intact. Patient complains of difficulty focusing and concentrating. Mood/Affect: Mood is depressed her affect is blunted Insight/Judgment: Patient's insight and judgment are fair Hospital Course: Patient was admitted on a voluntary basis, placed on routine observation in group and activity therapy were ordered. Patient also had routine laboratory studies as well as a medical consultation. Patient and I discussed her medications and will continue Lamictal 50 mg which the patient had been on for one week and would not be able to increase until July 03. Patient and I also continue trazodone 50 mg at bedtime to target her sleep. We discussed the use of mood stabilizers and the patient began Latuda increased to a dose of 40 mg with good results however the patient discovered that she would be unable to pay the co-pays for this medication even with assistance from the pharmaceutical company. To this end we decided to return to [facility] and started 10 mg daily. I discussed with the patient that I felt that Abilify would be a good option again and felt that the difficulties prior to this admission with the use of the Effexor and not the Abilify. Patient was not restarted on any antidepressant medication. Patient reported that her mood had stabilized, she was no longer feeling depressed and irritable and no longer had any suicidal ideation. Patient states that she was sleeping well and her appetite was good, she was not overeating. Patient was attending groups and activities. Patient reported her mood was not as up and down, she was no longer having crying spells and reported no side effects from the restart of the Abilify or from combining her doses of Lamictal to 1 time a day. Patient continued to use Vistaril 25 mg as needed for anxiety on an intermittent basis. Patient felt ready to be discharged and will return to follow-up with Dr. Buchanan as well as with a therapist in his office. Patient and I discussed on July 03 increasing her Lamictal to 100 mg daily. Allergies olanzapine [From Zyprexa] Allergy (Verified 06/25/18 22:06) Unknown Laboratory Last Values WBC 8.6 k/uL (3.8-10.6) 06/26/18 08: RBC 4.98 m/uL (3.80-5.40) 06/26/18 08:02 Hgb 15.3 gm/dL (11.4-16.0) 06/26/18 08:02 Hct 45.5 % (34.0-46.0) 06/26/18 08:02 MCV 91.5 fL (80.0-100.0) 06/26/18 08:02 MCH 30.7 pg (25.0-35.0) 06/26/18 08:02 MCHC 33.6 g/dL (31.0-37.0) 06/26/18 08:02 RDW 13.4 % (11.5-15.5) 06/26/18 08:02 Plt Count 270 k/uL (150-450) 06/26/18 08:02 Neutrophils % 39 % 06/26/18 08:02 Lymphocytes % 48 % 06/26/18 08:02 Monocytes % 8 % 06/26/18 08:02 Eosinophils % 3 % 06/26/18 08:02 Basophils % 1 % 06/26/18 08:02 Neutrophils # 3.3 k/uL (1.3-7.7) 06/26/18 08:02 Lymphocytes # 4.1 k/uL (1.0-4.8) 06/26/18 08:02 Monocytes # 0.7 k/uL (0-1.0) 06/26/18 08:02 Eosinophils # 0.2 k/uL (0-0.7) 06/26/18 08:02 Basophils # 0.1 k/uL (0-0.2) 06/26/18 08:02 Sodium 139 mmol/L (137-145) 06/26/18 08:02 Potassium 4.1 mmol/L (3.5-5.1) 06/26/18 08:02 Chloride 105 mmol/L (98-107) 06/26/18 08:02 Carbon Dioxide 25 mmol/L (22-30) 06/26/18 08:02 Anion Gap 9 mmol/L 06/26/18 08:02 BUN 11 mg/dL (7-17) 06/26/18 08:02 Creatinine 0.68 mg/dL (0.52-1.04) 06/26/18 08:02 Est GFR (CKD-EPI)AfAm >90 (>60 ml/min/1.73 sqM) 06/26/18 08:02 Est GFR (CKD-EPI)NonAf >90 (>60 ml/min/1.73 sqM) 06/26/18 08:02 Glucose 99 mg/dL (74-99) 06/26/18 08:[address] Glu mg/dL 94 06/26/18 08:02 Hemoglobin A1c 4.9 % (4.0-6.0) 06/26/18 08:02 Calcium 9.5 mg/dL (8.4-10.2) 06/26/18 08:02 Total Bilirubin 0.7 mg/dL (0.2-1.3) 06/26/18 08:02 AST 23 U/L (14-36) 06/26/18 08:02 ALT 23 U/L (9-52) 06/26/18 08:02 Alkaline Phosphatase 50 U/L (38-126) 06/26/18 08:02 Total Protein 7.5 g/dL (6.3-8.2) 06/26/18 08:02 Albumin 4.3 g/dL (3.5-5.0) 06/26/18 08:02 Triglycerides 76 mg/dL (<150) 06/26/18 08:02 Cholesterol 187 mg/dL (<200) 06/26/18 08:02 LDL Cholesterol, Calc 103 mg/dL (0-99) H 06/26/18 08:02 HDL Cholesterol 69 mg/dL (40-60) H 06/26/18 08:02 TSH 4.070 mIU/L (0.465-4.680) 06/26/18 08:02 Urine Color Yellow 06/25/18 18:19 Urine Appearance Clear (Clear) 06/25/18 18:19 Urine pH 6.0 (5.0-8.0) 06/25/18 18:19 Ur Specific [place] 1.022 (1.001-1.035) 06/25/18 18:19 Urine Protein Negative (Negative) 06/25/18 18:19 Urine Glucose (UA) Negative (Negative) 06/25/18 18:19 Urine Ketones Negative (Negative) 06/25/18 18:19 Urine Blood Negative (Negative) 06/25/18 18:19 Urine Nitrite Negative (Negative) 06/25/18 18:19 Urine Bilirubin Negative (Negative) 06/25/18 18:19 Urine Urobilinogen <2.0 mg/dL (<2.0) 06/25/18 18:19 Ur Leukocyte Esterase Negative (Negative) 06/25/18 18:19 Urine Opiates Screen Not Detected (NotDetected) 06/25/18 18:19 Ur Oxycodone Screen Not Detected (NotDetected) 06/25/18 18:19 Urine Methadone Screen Not Detected (NotDetected) 06/25/18 18:19 Ur Propoxyphene Screen Not Detected (NotDetected) 06/25/18 18:19 Ur Barbiturates Screen Not Detected (NotDetected) 06/25/18 18:19 U Tricyclic Antidepress Not Detected (NotDetected) 06/25/18 18:19 Ur Phencyclidine Scrn Not Detected (NotDetected) 06/25/18 18:19 Ur Amphetamines Screen Not Detected (NotDetected) 06/25/18 18:19 U Methamphetamines Scrn Not Detected (NotDetected) 06/25/18 18:19 U Benzodiazepines Scrn Not Detected (NotDetected) 06/25/18 18:19 Urine Cocaine Screen Not Detected (NotDetected) 06/25/18 18:19 U Marijuana (THC) Screen Detected (NotDetected) H 06/25/18 18:19 Discharge Mental Status: Appearance/Attitude: Patient is casually dressed, makes good eye contact and was cooperative. Behavior: Patient does not exhibit any psychomotor agitation or retardation. Speech/Language: Patient's speech is spontaneous of normal volume and rhythm and she is coherent Thought Process: Patient is goal-directed there is no evidence of loose association or flight of ideas Thought Content: Patient denies any auditory or visual hallucinations and no delusions or paranoid ideation or elicited. Patient states she is no longer having crying spells, Zoloft longer feeling irritable and feels that her mood is much more stable. Patient states that her sleep is restful and she states that she is not overeating. Patient reports she is not feeling hopeless helpless or worthless. Suicidal/Homicidal Ideation: Patient denies any current suicidal or homicidal ideation Sensorium/Cognition: Patient is alert and oriented to person, place, and time and her recent and remote memory are grossly intact Mood/Affect: Patient's mood is stable and her affect is appropriate Insight/Judgment: Patient's insight and judgment are intact Risk Assessment: Patient's risk for readmission is low should patient be compliant with medication, follow-up appointments and avoid alcohol and drugs. Discharge Plan: Patient will be discharged home, she will continue on trazodone 50 mg at bedtime, Abilify 10 mg daily and will continue on Lamictal 50 mg and discontinue after her dose on July 02. Beginning on July 03 the patient will begin Lamictal 100 mg. Patient will also continue on Vistaril 25 mg times a day as needed. Patient will be given prescriptions for Lamictal, Abilify and trazodone. Patient will follow-up with as well as with a therapist in his office. Patient was encouraged to be compliant with appointments and medication. Patient was also advised to avoid all alcohol and drug use. Patient Condition at Discharge: Stable Plan - Discharge Summary Discharge Rx Participant: No New Discharge Prescriptions: New lamoTRIgine [LaMICtal] 50 mg PO DAILY tab lamoTRIgine [LaMICtal] 100 mg PO DAILY #14 tab traZODone HCL [Desyrel] 50 mg PO HS #14 tab Continue hydrOXYzine PAMOATE [Vistaril] 25 mg PO TID PRN PRN Reason: Anxiety ARIPiprazole [Abilify] 10 mg PO DAILY #14 tab Discontinued Venlafaxine HCl [Effexor XR] 75 mg PO DAILY Discharge Medication List hydrOXYzine PAMOATE [Vistaril] 25 mg PO TID PRN 05/01/18 [History] ARIPiprazole [Abilify] 10 mg PO DAILY #14 tab 06/29/18 [Rx] lamoTRIgine [LaMICtal] 50 mg PO DAILY tab 06/29/18 [Rx] lamoTRIgine [LaMICtal] 100 mg PO DAILY #14 tab 06/29/18 [Rx] traZODone HCL [Desyrel] 50 mg PO HS #14 tab 06/29/18 [Rx] Follow up Appointment(s)/Referral(s): [facility] [Outside] - 07/17/18 11:00 am (Dr Smith 07/04/18 at 240) Windy Shetty DO [Primary Care Provider] - 1-2 days Patient Instructions/Handouts: Depression (DC), Suicide Prevention (DC) Activity/Diet/Wound Care/Special Instructions: Activity and Diet as tolerated. Avoid the use of street drugs and alcohol. Take all medications as prescribed, when you are in need of refills contact your medical doctor or psychiatrist. Please go to all scheduled outpatient appointments for aftercare treatment. If symptoms return or worsen you can call the crisis line @ and/or return to the nearest emergency room for evaluation. Discharge Disposition: HOME SELF-CARE
== END 2018-06-29 10:41 | disposition home or self-care (01) | DRG 885 ==
LOC: EC 15:42 → 3MHU 18:52
PROVIDERS: ADMIT Psychiatry & Neurology Psychiatry; ATTEND Psychiatry & Neurology Psychiatry
DX: F31.81 Bipolar II disorder (principal); D69.3 Immune thrombocytopenic purpura; R45.851 Suicidal ideations; F10.19 Alcohol abuse with unspecified alcohol-induced disorder; E78.5 Hyperlipidemia, unspecified; F12.99 Cannabis use, unspecified with unspecified cannabis-induced disorder; F41.1 Generalized anxiety disorder; K58.9 Irritable bowel syndrome, unspecified; Z79.899 Other long term (current) drug therapy; Z81.8 Family history of other mental and behavioral disorders; Z82.49 Family history of ischemic heart disease and other diseases of the circulatory system; Z88.8 Allergy status to other drugs, medicaments and biological substances; Z86.14 Personal history of Methicillin resistant Staphylococcus aureus infection; R09.82 Postnasal drip
CPT/HCPCS: 80053; 80061; 80306; 81003; 82075; 83036; 84443; 85025; 99285

== ENCOUNTER 2019-05-26 13:00 | Emergency (ER) | payer OTHER ==
[2019-05-26 13:06] VITALS: RESP 18
--- NOTE | 2019-05-26 14:13 | ED ---
Abdominal Pain HPI - General Chief Complaint: Abdominal Pain Stated Complaint: Poss ,cramping Time Seen by Provider: 05/26/19 13:21 Source: patient, RN notes reviewed, old records reviewed Mode of arrival: ambulatory Limitations: no limitations - History of Present Illness Initial Comments: Patient is a 24-year-old female presents today for evaluation for abdominal cramping, some nausea complaints of heartburn. She states that she took a preg jg test at home which were positive. She believes she is about 5/6 weeks . Patient states that she's had no fevers or chills, any changes in urination or bowel habits. She denies any vaginal bleeding. She reports that she is planning follow-up with Dr. Liao. She has an appointment on Monday. Patient is a Patient.Patient denies any recent fever, chills, shortness of breath, chest pain, back pain, numbness or tingling, dysuria or hematuria, constipation or diarrhea, headaches or visual changes, or any other current symptoms - Related Data Home Medications Medication Instructions Recorded Confirmed hydrOXYzine PAMOATE [Vistaril] 25 mg PO TID PRN 05/01/18 06/25/18 Previous Rx's Medication Instructions Recorded ARIPiprazole [Abilify] 10 mg PO DAILY #14 tab 06/29/18 lamoTRIgine [LaMICtal] 50 mg PO DAILY tab 06/29/18 lamoTRIgine [LaMICtal] 100 mg PO DAILY #14 tab 06/29/18 traZODone HCL [Desyrel] 50 mg PO HS #14 tab 06/29/18 Est-Mseg-Nxntg Acid 1 cap PO DAILY #40 cap 05/26/19 [-U Capsule (formulary)] Allergies Allergy/AdvReac Type Severity Reaction Status Date / Time olanzapine [From Zyprexa] Allergy Unknown Verified 05/26/19 13:02 Review of Systems ROS Statement: Those systems with pertinent positive or pertinent negative responses have been documented in the HPI. ROS Other: All systems not noted in ROS Statement are negative. 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 Date of last positivie culture/infection: 2016 MDRO Source:: urine Past Surgical History: No Surgical Hx Reported Past Anesthesia/Blood Transfusion Reactions: No Reported Reaction Past Psychological History: Anxiety, Depression Smoking Status: Current some day smoker Past Alcohol Use History: Occasional Past Drug Use History: Marijuana - Past Family History Father Additional Family Medical History / Comment(s): Bipolar Mother Family Medical History: Hypertension, Pulmonary Embolus Additional Family Medical History / Comment(s): Depression, Anxiety, PTSD Sister(s) Family Medical History: No Reported History Brother(s) Family Medical History: No Reported History General Exam - General Exam Comments Initial Comments: 24-year-old female. Alert and oriented 3. No distress. Limitations: no limitations General appearance: alert, in no apparent distress Head exam: Present: atraumatic, normocephalic, normal inspection Eye exam: Present: normal appearance, PERRL, EOMI. Absent: scleral icterus, conjunctival injection, periorbital swelling ENT exam: Present: normal exam, mucous membranes moist Neck exam: Present: normal inspection. Absent: tenderness, meningismus, lymphadenopathy Respiratory exam: Present: normal lung sounds bilaterally. Absent: respiratory distress, wheezes, rales, rhonchi, stridor Cardiovascular Exam: Present: regular rate, normal rhythm, normal heart sounds. Absent: systolic murmur, diastolic murmur, rubs, gallop, clicks Extremities exam: Present: normal inspection, full ROM, normal capillary refill. Absent: tenderness, pedal edema, joint swelling, calf tenderness Back exam: Present: normal inspection Neurological exam: Present: alert, oriented X3, CN II-XII intact Psychiatric exam: Present: normal affect, normal mood Skin exam: Present: warm, dry, intact, normal color. Absent: rash Course Vital Signs 05/26/19 05/26/19 13:02 16:29 Temperature 98.7 F 98.0 F Pulse Rate 71 68 Respiratory 18 18 Rate Blood Pressure 131/80 128/73 O2 Sat by Pulse 100 97 Oximetry Medical Decision Making - Medical Decision Making 22-year-old female presents return today for abdominal cramping. Denies any vaginal bleeding or discharge. She also points heartburn. She is questioning if she is she did have some positive test at home. HCG levels elevated 3062. Urinalysis is negative for infection. Ultrasound shows findings likely representing an early gestation. Recommended follow-up. Patient's Rh positive. . I'm not concerned for ectopic based off her symptoms more abdominal cramping heartburn. I discussed the Patient should follow-up with her [facility]. She is also concerned about what medications or safe in as far as her psychiatric medications. Patient advised to discontinue these medicines until she can follow-up with her [facility]STR[facility]. All questions were answered and return parameters were discussed. - Lab Data Result diagrams: 05/26/19 14:15 05/26/19 14:15 Lab Results 05/26/19 05/26/19 05/26/19 Range/Units 14:10 14:15 14:15 WBC (3.8-10.6) k/uL RBC (3.80-5.40) m/uL Hgb (11.4-16.0) gm/dL Hct (34.0-46.0) % MCV (80.0-100.0) fL MCH (25.0-35.0) pg MCHC (31.0-37.0) g/dL RDW (11.5-15.5) % Plt Count (150-450) k/uL Neutrophils % % Lymphocytes % % Monocytes % % Eosinophils % % Basophils % % Neutrophils # (1.3-7.7) k/uL Lymphocytes # (1.0-4.8) k/uL Monocytes # (0-1.0) k/uL Eosinophils # (0-0.7) k/uL Basophils # (0-0.2) k/uL PT (9.0-12.0) sec INR (<1.2) APTT (22.0-30.0) sec Sodium 139 (137-145) mmol/L Potassium 4.0 (3.5-5.1) mmol/L Chloride 106 (98-107) mmol/L Carbon Dioxide 27 (22-30) mmol/L Anion Gap 6 mmol/L BUN 6 L (7-17) mg/dL Creatinine 0.60 (0.52-1.04) mg/dL Est GFR (CKD-EPI)AfAm >90 (>60 ml/min/1.73 sqM) Est GFR (CKD-EPI)NonAf >90 (>60 ml/min/1.73 sqM) Glucose 96 (74-99) mg/dL Calcium 9.4 (8.4-10.2) mg/dL Total Bilirubin 0.4 (0.2-1.3) mg/dL AST 23 (14-36) U/L ALT 21 (9-52) U/L Alkaline Phosphatase 49 (38-126) U/L Total Protein 6.9 (6.3-8.2) g/dL Albumin 4.1 (3.5-5.0) g/dL HCG, Quant 3062.7 mIU/mL Urine Color Yellow Urine Appearance Cloudy H (Clear) Urine pH 8.0 (5.0-8.0) Ur Specific [place] 1.023 (1.001-1.035) Urine Protein Trace H (Negative) Urine Glucose (UA) Negative (Negative) Urine Ketones Negative (Negative) Urine Blood Negative (Negative) Urine Nitrite Negative (Negative) Urine Bilirubin Negative (Negative) Urine Urobilinogen <2.0 (<2.0) mg/dL Ur Leukocyte Esterase Negative (Negative) Urine RBC <1 (0-5) /hpf Urine WBC 2 (0-5) /hpf Ur Squamous Epith Cells 8 H (0-4) /hpf Amorphous Sediment Rare H (None) /hpf Urine Mucus Occasional H (None) /hpf Blood Type A Positive Blood Type Recheck [facility] ONLY 05/26/19 05/26/19 Range/Units 14:15 14:15 WBC 7.3 (3.8-10.6) k/uL RBC 4.84 (3.80-5.40) m/uL Hgb 13.8 (11.4-16.0) gm/dL Hct 43.1 (34.0-46.0) % MCV 89.2 (80.0-100.0) fL MCH 28.6 (25.0-35.0) pg MCHC 32.1 (31.0-37.0) g/dL RDW 13.5 (11.5-15.5) % Plt Count 252 (150-450) k/uL Neutrophils % 60 % Lymphocytes % 33 % Monocytes % 4 % Eosinophils % 1 % Basophils % 1 % Neutrophils # 4.3 (1.3-7.7) k/uL Lymphocytes # 2.4 (1.0-4.8) k/uL Monocytes # 0.3 (0-1.0) k/uL Eosinophils # 0.1 (0-0.7) k/uL Basophils # 0.1 (0-0.2) k/uL PT 10.3 (9.0-12.0) sec INR 1.0 (<1.2) APTT 23.9 (22.0-30.0) sec Sodium (137-145) mmol/L Potassium (3.5-5.1) mmol/L Chloride (98-107) mmol/L Carbon Dioxide (22-30) mmol/L Anion Gap mmol/L BUN (7-17) mg/dL Creatinine (0.52-1.04) mg/dL Est GFR (CKD-EPI)AfAm (>60 ml/min/1.73 sqM) Est GFR (CKD-EPI)NonAf (>60 ml/min/1.73 sqM) Glucose (74-99) mg/dL Calcium (8.4-10.2) mg/dL Total Bilirubin (0.2-1.3) mg/dL AST (14-36) U/L ALT (9-52) U/L Alkaline Phosphatase (38-126) U/L Total Protein (6.3-8.2) g/dL Albumin (3.5-5.0) g/dL HCG, Quant mIU/mL Urine Color Urine Appearance (Clear) Urine pH (5.0-8.0) Ur Specific [place] (1.001-1.035) Urine Protein (Negative) Urine Glucose (UA) (Negative) Urine Ketones (Negative) Urine Blood (Negative) Urine Nitrite (Negative) Urine Bilirubin (Negative) Urine Urobilinogen (<2.0) mg/dL Ur Leukocyte Esterase (Negative) Urine RBC (0-5) /hpf Urine WBC (0-5) /hpf Ur Squamous Epith Cells (0-4) /hpf Amorphous Sediment (None) /hpf Urine Mucus (None) /hpf Blood Type Blood Type Recheck - Radiology Data Radiology results: report reviewed Ultrasound shows evidence of intrauterine gestation. Disposition Clinical Impression: Early stage of Disposition: HOME SELF-CARE Condition: Good Instructions (If sedation given, give patient instructions): (ED), Abdominal Pain in (ED) Additional Instructions: Patient advised of close follow-up with primary care physician and [facility]. Return to the emergency department if any alarming signs or symptoms occur. Prescriptions: Kvm-Heoq-Duuko Acid [-U Capsule (formulary)] 1 cap PO DAILY #40 cap Is patient prescribed a controlled substance at d/c from ED?: No Referrals: Windy Shetty DO [Primary Care Provider] - 1-2 days Time of Disposition: 16:17
[2019-05-26 14:27] LABS: Basophils # (A) 0.1 k/uL (0-0.2); Basophils % (A) 1 %; Eosinophils # (A) 0.1 k/uL (0-0.7); Eosinophils % (A) 1 %; HCT 43.1 % (34.0-46.0); HGB 13.8 gm/dL (11.4-16.0); Lymphocytes # (A) 2.4 k/uL (1.0-4.8); Lymphocytes % (A) 33 %; MCH 28.6 pg (25.0-35.0); MCHC 32.1 g/dL (31.0-37.0); MCV 89.2 fL (80.0-100.0); Mean Platelet Volume 6.9; Monocytes # (A) 0.3 k/uL (0-1.0); Monocytes % (A) 4 %; Neutrophils # (A) 4.3 k/uL (1.3-7.7); Neutrophils % (A) 60 %; Platelet Count 252 k/uL (150-450); RBC 4.84 m/uL (3.80-5.40); RDW 13.5 % (11.5-15.5); WBC 7.3 k/uL (3.8-10.6)
[2019-05-26 14:35] LABS: ALT 21 U/L (9-52); AST 23 U/L (14-36); African American GFR (CKD) >90 (>60 ml/min/1.73 sqM); Albumin 4.1 g/dL (3.5-5.0); Alkaline Phosphatase 49 U/L (38-126); Anion Gap 6 mmol/L; Blood Urea Nitrogen 6 mg/dL (7-17); Calcium 9.4 mg/dL (8.4-10.2); Carbon Dioxide 27 mmol/L (22-30); Chloride 106 mmol/L (98-107); Glucose 96 mg/dL (74-99); Sodium 139 mmol/L (137-145); Total Bilirubin 0.4 mg/dL (0.2-1.3); Total Protein 6.9 g/dL (6.3-8.2)
[2019-05-26 14:38] LABS: Partial Thromboplastin Time 23.9 sec (22.0-30.0); Prothrombin Time 10.3 sec (9.0-12.0)
[2019-05-26 14:51] LABS: HCG,Quantitative Serum 3062.7 mIU/mL
--- NOTE | 2019-05-26 15:28 | US ---
EXAMINATION TYPE: Transabdominal DATE OF EXAM: 05/26/2019 2:59 PM COMPARISON: NONE CLINICAL HISTORY: Pain. Cramping, three positive home tests. EXAM PERFORMED: Transvaginal (TV) and Transabdominal (TA), endovaginal scanning performed for better evaluation of the uterus and , ovaries EXAM MEASUREMENTS: GESTATIONAL AGE / DATING Physician Established: Not yet established Dates by LMP: unknown Dates by First Scan: No previous this is first scan Dates by Current Scan for: only gestational sac and yolk sac seen. MATERNAL ANATOMY Uterus: 7.3 x 3.9 x 4.2 cm Right Ovary: 3.1 x 2.4 x 2.1 cm Left Ovary: 2.6 x 2.2 x 1.9 cm Post CDS / Adnexa: wnl Presence of free fluid: none GESTATION / SURVEY CRL: not identified MSD: 0.8 cm, measures out of range (too early) Yolk Sac (normal less than 6mm): 0.2 cm Date of LMP: unknown Beta HcG (if available): 3062 Appears as early IUP with gestational sac and yolk sac. Grayscale and color Doppler imaging performed, color flow noted to the ovaries IMPRESSION: Findings likely represent an early gestation, follow-up
[2019-05-26 16:30] VITALS: BP 128/73; PULSE 68; TEMP 98
[2019-05-26 16:58] LABS: Amorphous Sediment,Urine Rare /hpf; Appearance,Urine Cloudy (Clear); Bilirubin,Urine Negative (Negative); Blood,Urine Negative (Negative); Color,Urine Yellow; Glucose,Urine (UA) Negative (Negative); Ketones,Urine Negative (Negative); Leukocyte Esterase,Urine Negative (Negative); Mucus,Urine Occasional /hpf; Nitrite,Urine Negative (Negative); Protein,Urine Trace (Negative); RBC,Urine <1 /hpf (0-5); Specific Gravity,Urine 1.023 (1.001-1.035); Squamous Epithelial Cell,Urine 8 /hpf (0-4); Urobilinogen,Urine <2.0 mg/dL (<2.0)
== END 2019-05-26 16:29 | disposition home or self-care (01) ==
LOC: EC 13:00
DX: O99.89 Other specified diseases and conditions complicating pregnancy, childbirth and the puerperium (principal); R10.9 Unspecified abdominal pain; R11.0 Nausea; R12 Heartburn; O99.341 Other mental disorders complicating pregnancy, first trimester; F41.9 Anxiety disorder, unspecified; O99.331 Smoking (tobacco) complicating pregnancy, first trimester; F17.200 Nicotine dependence, unspecified, uncomplicated; Z3A.01 Less than 8 weeks gestation of pregnancy; Z88.8 Allergy status to other drugs, medicaments and biological substances
CPT/HCPCS: 36415; 76801; 76817; 80053; 81001; 84702; 85025; 85610; 85730; 86900; 86901; 99284

== ENCOUNTER 2019-05-29 21:17 | Observation (INO) | payer OTHER ==
[2019-05-29] MEDS ORDERED: SODIUM CHLORIDE 0.9% 2,000 ML IV STA (22:11)
[2019-05-29] MEDS ORDERED: diphenhydrAMINE 50 MG/ML 1 ML VIAL IVP STA (23:05)
[2019-05-29] MEDS ORDERED: METOCLOPRAMIDE 5 MG/ML 2 ML VIAL IVP STA (23:05)
[2019-05-29 23:56] LABS: Basophils # (A) 0.1 k/uL (0-0.2); Basophils % (A) 1 %; Eosinophils % (A) 0 %; HCT 46.3 % (34.0-46.0); HGB 14.9 gm/dL (11.4-16.0); Lymphocytes # (A) 1.7 k/uL (1.0-4.8); Lymphocytes % (A) 13 %; MCH 28.7 pg (25.0-35.0); MCHC 32.1 g/dL (31.0-37.0); MCV 89.2 fL (80.0-100.0); Mean Platelet Volume 7.6; Monocytes # (A) 0.5 k/uL (0-1.0); Monocytes % (A) 4 %; Neutrophils # (A) 10.8 k/uL (1.3-7.7); Neutrophils % (A) 82 %; Platelet Count 308 k/uL (150-450); RBC 5.19 m/uL (3.80-5.40); RDW 13.4 % (11.5-15.5); WBC 13.2 k/uL (3.8-10.6)
[2019-05-30 00:03] LABS: Amorphous Sediment,Urine Rare /hpf; Appearance,Urine Turbid (Clear); Bilirubin,Urine Negative (Negative); Blood,Urine Negative (Negative); Color,Urine Yellow; Glucose,Urine (UA) Negative (Negative); Ketones,Urine 3+ (Negative); Leukocyte Esterase,Urine Negative (Negative); Mucus,Urine Many /hpf; Nitrite,Urine Negative (Negative); Protein,Urine 2+ (Negative); Specific Gravity,Urine 1.035 (1.001-1.035); Squamous Epithelial Cell,Urine 3 /hpf (0-4)
[2019-05-30 00:05] LABS: ALT 24 U/L (9-52); AST 22 U/L (14-36); African American GFR (CKD) >90 (>60 ml/min/1.73 sqM); Albumin 4.8 g/dL (3.5-5.0); Alkaline Phosphatase 66 U/L (38-126); Anion Gap 14 mmol/L; Blood Urea Nitrogen 8 mg/dL (7-17); Calcium 10.1 mg/dL (8.4-10.2); Carbon Dioxide 25 mmol/L (22-30); Chloride 102 mmol/L (98-107); Glucose 106 mg/dL (74-99); Sodium 141 mmol/L (137-145); Total Bilirubin 0.5 mg/dL (0.2-1.3); Total Protein 8.3 g/dL (6.3-8.2)
--- NOTE | 2019-05-30 00:06 | US ---
EXAM: US First Trimester, Transabdominal US , Transvaginal CLINICAL HISTORY: Pain TECHNIQUE: Real-time transabdominal and transvaginal obstetrical ultrasound of the maternal pelvis and a first trimester with image documentation. Transvaginal imaging was used for better evaluation of the fetus and adnexa. COMPARISON: May 26, 2019. FINDINGS: Gestation: There is a 5 week 1 day gestational age intrauterine chorionic sac with internal yolk sac. No embryo is seen at this time. Estimated due date is January 28, 2020. No subchorionic hemorrhage. Placenta/amniotic fluid: Cannot be adequately evaluated due to the early gestational age. Uterus/cervix: There is a 1.1 x 0.8 x 0.9 cm echogenic structure in the cervix. No myometrial mass. Ovaries: Unremarkable right ovary. The left ovary is not seen. No adnexal masses. Free fluid: No free fluid. IMPRESSION: Slightly one day gestational age intrauterine chorionic sac without internal yolk sac. No embryo is seen at this time. Correlate with serial beta-hCG values and short-term followup sonogram. No subchorionic hemorrhage. Suspected approximately 1 cm blood clot in cervix. Recommend followup on subsequent exam. No adnexal masses or free fluid.
[2019-05-30 00:20] LABS: HCG,Quantitative Serum 10043.7 mIU/mL
[2019-05-30] MEDS ORDERED: METOCLOPRAMIDE 10 MG TAB PO STA (01:08)
[2019-05-30] MEDS ORDERED: METOCLOPRAMIDE 5 MG/ML 2 ML VIAL IVP STA (01:41)
[2019-05-30 01:48] LABS: Appearance,Urine Clear (Clear); Bilirubin,Urine Negative (Negative); Blood,Urine Negative (Negative); Color,Urine Yellow; Glucose,Urine (UA) Negative (Negative); Ketones,Urine 4+ (Negative); Leukocyte Esterase,Urine Negative (Negative); Mucus,Urine Many /hpf; Nitrite,Urine Negative (Negative); PH, Urine 6.5 (5.0-8.0); Protein,Urine 1+ (Negative); Specific Gravity,Urine 1.033 (1.001-1.035); Squamous Epithelial Cell,Urine 2 /hpf (0-4); WBC,Urine <1 /hpf (0-5)
[2019-05-30] MEDS: LACTATED RINGERS 1,000 ML IV SCH ×5 (01:57→04:15)
--- NOTE | 2019-05-30 02:48 | ED ---
Nausea/Vomiting/Diarrhea HPI - General Chief complaint: Nausea/Vomiting/Diarrhea Stated complaint: vomiting Time Seen by Provider: 05/29/19 21:30 Source: patient Mode of arrival: ambulatory Limitations: no limitations - History of Present Illness Initial comments: The patient is a 24-year-old female who presents to the emergency department with reported nausea and vomiting for one day. The patient is approximate 5 weeks . She states that she was in the emergency room 2 days ago for abdominal cramping. She had ultrasound performed at that time which demonstrated an intrauterine however there is no heart tone visualized yet. The patient then went home. She states that today she developed significant nausea and vomiting. She is unsure if it is from nicotine and THC withdrawal or if it is secondary to the . She denies any sick contacts or recent travel. She denies possibility of eating tainted foods. She states that the vomiting is nonbilious and nonbloody. She does have abdominal wall pain secondary to heaving. Been unable to hold down any food or water. She denies any fevers or chills. She denies any vaginal leading, cramping or discharge. Denies any chest pain or shortness of breath. She does see Dr. Liao for her . She is scheduled to see him on Monday for an ultrasound. There are no other alleviating, precipitating or modifying factors - Related Data Home Medications Medication Instructions Recorded Confirmed ARIPiprazole [Abilify] 5 mg PO DAILY 05/29/19 05/29/19 DULoxetine HCL [Cymbalta] 30 mg PO DAILY 05/29/19 05/29/19 Previous Rx's Medication Instructions Recorded lamoTRIgine [LaMICtal] 100 mg PO DAILY #14 tab 06/29/18 Kzd-Mlmf-Zghtn Acid 1 cap PO DAILY #40 cap 05/26/19 [-U Capsule (formulary)] Metoclopramide HCl [Reglan] 5 mg PO TID PRN #12 tablet 05/30/19 Pyridoxine [Vitamin B-6] 50 mg PO BID #60 tab 05/30/19 Allergies Allergy/AdvReac Type Severity Reaction Status Date / Time olanzapine [From Zyprexa] Allergy Unknown Verified 05/30/19 04:19 Review of Systems ROS Statement: Those systems with pertinent positive or pertinent negative responses have been documented in the HPI. ROS Other: All systems not noted in ROS Statement are negative. 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 Date of last positivie culture/infection: 2015 MDRO Source:: urine Past Surgical History: No Surgical Hx Reported Past Anesthesia/Blood Transfusion Reactions: No Reported Reaction Past Psychological History: Anxiety, Depression Smoking Status: Current some day smoker Past Alcohol Use History: Occasional Past Drug Use History: Marijuana - Past Family History Father Additional Family Medical History / Comment(s): Bipolar Mother Family Medical History: Hypertension, Pulmonary Embolus Additional Family Medical History / Comment(s): Depression, Anxiety, PTSD Sister(s) Family Medical History: No Reported History Brother(s) Family Medical History: No Reported History General Exam Limitations: no limitations General appearance: alert, in no apparent distress Head exam: Present: atraumatic, normocephalic, normal inspection Eye exam: Present: normal appearance, PERRL, EOMI. Absent: scleral icterus, conjunctival injection, periorbital swelling ENT exam: Present: normal exam, mucous membranes moist Neck exam: Present: normal inspection. Absent: tenderness, meningismus, lymphadenopathy Respiratory exam: Present: normal lung sounds bilaterally. Absent: respiratory distress, wheezes, rales, rhonchi, stridor Cardiovascular Exam: Present: regular rate, normal rhythm, normal heart sounds. Absent: systolic murmur, diastolic murmur, rubs, gallop, clicks GI/Abdominal exam: Present: soft, tenderness (diffuse tenderness to palpation. No peritoneal signs), normal bowel sounds. Absent: distended, guarding, rebound, rigid Extremities exam: Present: normal inspection, full ROM, normal capillary refill. Absent: tenderness, pedal edema, joint swelling, calf tenderness Back exam: Present: normal inspection Neurological exam: Present: alert, oriented X3, CN II-XII intact Psychiatric exam: Present: normal affect, normal mood Skin exam: Present: warm, dry, intact, normal color, other (poor skin turgor). Absent: rash Course Vital Signs 05/29/19 05/29/19 05/30/19 21:27 23:43 02:09 Temperature 98.1 F 98.2 F 98.7 F Pulse Rate 98 88 79 Pulse Rate [ Pulse Oximetery ] Respiratory 16 18 18 Rate Blood Pressure 150/102 131/78 102/63 Blood Pressure [Right Arm] O2 Sat by Pulse 98 98 99 Oximetry 05/30/19 05/30/19 05/30/19 03:50 04:00 04:14 Temperature 98.6 F 98.6 F Pulse Rate 86 Pulse Rate [ 68 Pulse Oximetery ] Respiratory 18 18 16 Rate Blood Pressure 104/68 Blood Pressure 108/54 [Right Arm] O2 Sat by Pulse 99 97 Oximetry Medical Decision Making - Medical Decision Making Upon arrival the patient was placed into room 25. She is hooked up to continuous pulse ox and cardiac monitoring. A thorough history and physical exam was performed. Peripheral IV was established. The patient was given a 2 L bolus of 0.9% normal saline. Laboratory studies were conducted the patient was sent for an ultrasound. The patient did provide a urinalysis was demonstrated 3+ ketones in her urine. Because of the significant amount of ketones I did o rder a third liter of fluid however did changed to lactated Ringer's. The patient was given 10 mg of Reglan for nausea. She did have improvement in her nausea however did require a second dose. Upon return of the results I did discuss them with the patient. I did recommend a second urinalysis. Results returned and the patient does have increased ketosis. The patient is given an oral challenge however continues to have significant nausea. She can only tolerate very small sips of fluid before she feels sick again. Because of the patient's significant dehydration I did recommend hospital admission. I did call discuss case with Dr. Gold. He did accept admission for the patient. Bridging orders were placed and the patient was transported to floor in stable condition - Differential Diagnosis hyperemesis gravidarum, acute n/v, first trimester - Lab Data Result diagrams: 05/29/19 22:44 05/29/19 22:44 Lab Results 05/29/19 05/29/19 05/29/19 Range/Units 22:44 22:44 22:44 WBC 13.2 H (3.8-10.6) k/uL RBC 5.19 (3.80-5.40) m/uL Hgb 14.9 (11.4-16.0) gm/dL Hct 46.3 H (34.0-46.0) % MCV 89.2 (80.0-100.0) fL MCH 28.7 (25.0-35.0) pg MCHC 32.1 (31.0-37.0) g/dL RDW 13.4 (11.5-15.5) % Plt Count 308 (150-450) k/uL Neutrophils % 82 % Lymphocytes % 13 % Monocytes % 4 % Eosinophils % 0 % Basophils % 1 % Neutrophils # 10.8 H (1.3-7.7) k/uL Lymphocytes # 1.7 (1.0-4.8) k/uL Monocytes # 0.5 (0-1.0) k/uL Eosinophils # 0.0 (0-0.7) k/uL Basophils # 0.1 (0-0.2) k/uL Sodium 141 (137-145) mmol/L Potassium 4.0 (3.5-5.1) mmol/L Chloride 102 (98-107) mmol/L Carbon Dioxide 25 (22-30) mmol/L Anion Gap 14 mmol/L BUN 8 (7-17) mg/dL Creatinine 0.64 (0.52-1.04) mg/dL Est GFR (CKD-EPI)AfAm >90 (>60 ml/min/1.73 sqM) Est GFR (CKD-EPI)NonAf >90 (>60 ml/min/1.73 sqM) Glucose 106 H (74-99) mg/dL Calcium 10.1 (8.4-10.2) mg/dL Total Bilirubin 0.5 (0.2-1.3) mg/dL AST 22 (14-36) U/L ALT 24 (9-52) U/L Alkaline Phosphatase 66 (38-126) U/L Total Protein 8.3 H (6.3-8.2) g/dL Albumin 4.8 (3.5-5.0) g/dL Lipase 83 (23-300) U/L HCG, Quant 52110.7 mIU/mL Urine Color Yellow Urine Appearance Turbid H (Clear) Urine pH 6.0 (5.0-8.0) Ur Specific [place] 1.035 (1.001-1.035) Urine Protein 2+ H (Negative) Urine Glucose (UA) Negative (Negative) Urine Ketones 3+ H (Negative) Urine Blood Negative (Negative) Urine Nitrite Negative (Negative) Urine Bilirubin Negative (Negative) Urine Urobilinogen 2.0 (<2.0) mg/dL Ur Leukocyte Esterase Negative (Negative) Urine WBC (0-5) /hpf Ur Squamous Epith Cells 3 (0-4) /hpf Amorphous Sediment Rare H (None) /hpf Urine Mucus Many H (None) /hpf Blood Type Blood Type Recheck 05/29/19 05/30/19 Range/Units 22:44 01:30 WBC (3.8-10.6) k/uL RBC (3.80-5.40) m/uL Hgb (11.4-16.0) gm/dL Hct (34.0-46.0) % MCV (80.0-100.0) fL MCH (25.0-35.0) pg MCHC (31.0-37.0) g/dL RDW (11.5-15.5) % Plt Count (150-450) k/uL Neutrophils % % Lymphocytes % % Monocytes % % Eosinophils % % Basophils % % Neutrophils # (1.3-7.7) k/uL Lymphocytes # (1.0-4.8) k/uL Monocytes # (0-1.0) k/uL Eosinophils # (0-0.7) k/uL Basophils # (0-0.2) k/uL Sodium (137-145) mmol/L Potassium (3.5-5.1) mmol/L Chloride (98-107) mmol/L Carbon Dioxide (22-30) mmol/L Anion Gap mmol/L BUN (7-17) mg/dL Creatinine (0.52-1.04) mg/dL Est GFR (CKD-EPI)AfAm (>60 ml/min/1.73 sqM) Est GFR (CKD-EPI)NonAf (>60 ml/min/1.73 sqM) Glucose (74-99) mg/dL Calcium (8.4-10.2) mg/dL Total Bilirubin (0.2-1.3) mg/dL AST (14-36) U/L ALT (9-52) U/L Alkaline Phosphatase (38-126) U/L Total Protein (6.3-8.2) g/dL Albumin (3.5-5.0) g/dL Lipase (23-300) U/L HCG, Quant mIU/mL Urine Color Yellow Urine Appearance Clear (Clear) Urine pH 6.5 (5.0-8.0) Ur Specific [place] 1.033 (1.001-1.035) Urine Protein 1+ H (Negative) Urine Glucose (UA) Negative (Negative) Urine Ketones 4+ H (Negative) Urine Blood Negative (Negative) Urine Nitrite Negative (Negative) Urine Bilirubin Negative (Negative) Urine Urobilinogen 2.0 (<2.0) mg/dL Ur Leukocyte Esterase Negative (Negative) Urine WBC <1 (0-5) /hpf Ur Squamous Epith Cells 2 (0-4) /hpf Amorphous Sediment (None) /hpf Urine Mucus Many H (None) /hpf Blood Type A Positive Blood Type Recheck No Disposition Clinical Impression: Hyperemesis gravidarum Disposition: ADMITTED IP TO THIS [facility] Condition: Stable Is patient prescribed a controlled substance at d/c from ED?: No Decision to Admit Reason: Admit from EC Decision Date: 05/30/19 Decision Time: 02:44
[2019-05-30] MEDS ORDERED: METOCLOPRAMIDE 5 MG/ML 2 ML VIAL IVP PRN (02:50)
[2019-05-30] MEDS ORDERED: SODIUM CHLORIDE 0.9% 1,000 ML IV SCH (03:00)
[2019-05-30 07:47] VITALS: BP 125/77; PULSE 83; RESP 16; TEMP 97.6
[2019-05-30] MEDS ORDERED: PYRIDOXINE 50 MG TAB PO SCH (09:45)
--- NOTE | 2019-05-30 16:54 | P.HPIM ---
History of Present Illness H&P Date: 05/30/19 Megan Schaffer is a 24 yo at approx 5 weeks gestation who presented to the ED last night after vomiting all day yesterday more than 20 times. She was recently seen in the ED 3 days ago for abdominal pain and at that time US revealed sac but did not visualize heartbeat. She states she formerly smoked MJ daily but discontinued that when she found out she was . She has no prior history of abdominal issues, denies vaginal bleeding or change to vaginal discharge. In the ED she had mild leukocytosis and 2+ urinary ketones. Review of Systems All systems: negative Constitutional: Reports malaise, Denies chills, Denies fever Eyes: denies blurred vision, denies pain Ears, nose, mouth and throat: Denies headache, Denies sore throat Cardiovascular: Denies chest pain, Denies shortness of breath Respiratory: Denies cough Gastrointestinal: Reports loss of appetite, Reports nausea, Reports vomiting, Denies abdominal pain, Denies diarrhea Genitourinary: Denies dysuria, Denies hematuria Musculoskeletal: Denies myalgias Integumentary: Denies pruritus, Denies rash Neurological: Denies numbness, Denies weakness Psychiatric: Denies anxiety, Denies depression Endocrine: Denies fatigue, Denies weight change 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 Date of last positivie culture/infection: 2015 MDRO Source:: urine Past Surgical History: No Surgical Hx Reported Past Anesthesia/Blood Transfusion Reactions: No Reported Reaction Smoking Status: Current every day smoker - Past Family History Father Additional Family Medical History / Comment(s): Bipolar Mother Family Medical History: Hypertension, Pulmonary Embolus Additional Family Medical History / Comment(s): Depression, Anxiety, PTSD Sister(s) Family Medical History: No Reported History Brother(s) Family Medical History: No Reported History Medications and Allergies Home Medications Medication Instructions Recorded Confirmed Type lamoTRIgine [LaMICtal] 100 mg PO DAILY #14 tab 06/29/18 05/29/19 Rx Ivn-Jics-Voezd Acid 1 cap PO DAILY #40 cap 05/26/19 05/29/19 Rx [-U Capsule (formulary)] ARIPiprazole [Abilify] 5 mg PO DAILY 05/29/19 05/29/19 History DULoxetine HCL [Cymbalta] 30 mg PO DAILY 05/29/19 05/29/19 History Metoclopramide HCl [Reglan] 5 mg PO TID PRN #12 tablet 05/30/19 Rx Pyridoxine [Vitamin B-6] 50 mg PO BID #60 tab 05/30/19 Rx Allergies Allergy/AdvReac Type Severity Reaction Status Date / Time olanzapine [From Zyprexa] Allergy Unknown Verified 05/30/19 04:19 Physical Exam Vitals: Vital Signs Temp Pulse Pulse Resp BP BP Pulse Ox 05/30/19 07:10 97.6 F 83 16 125/77 98 05/30/19 04:21 97.8 F 80 18 102/68 100 05/30/19 04:14 98.6 F 68 16 108/54 97 05/30/19 04:00 18 05/30/19 03:50 98.6 F 86 18 104/68 99 05/30/19 02:09 98.7 F 79 18 102/63 99 05/29/19 23:43 98.2 F 88 18 131/78 98 05/29/19 21:27 98.1 F 98 16 150/102 98 Intake and Output 05/30/19 05/30/19 05/30/19 06:59 14:59 22:59 Intake Total 300 Balance 300 Intake: Oral 300 Other: # Voids 1 Constitutional: well developed, no acute distress. vitals reviewed HEENT: normocephalic, atraumatic, PERRL, mucus membranes moist Neck: supple, no thyromegaly Lymph: no cervical or axillary LAD CV: RRR, no murmur Lungs: normal effort, clear throughout Abd: soft, mild epigastric tenderness, no organomegaly Ext: no cyanosis, clubbing or edema Neuro: AAOx3, no focal deficits Results CBC & Chem 7: 05/29/19 22:44 05/29/19 22:44 Labs: Abnormal Lab Results - Last 24 Hours (Table) 05/29/19 05/29/19 05/29/19 Range/Units 22:44 22:44 22:44 WBC 13.2 H (3.8-10.6) k/uL Hct 46.3 H (34.0-46.0) % Neutrophils # 10.8 H (1.3-7.7) k/uL Glucose 106 H (74-99) mg/dL Total Protein 8.3 H (6.3-8.2) g/dL Urine Appearance Turbid H (Clear) Urine Protein 2+ H (Negative) Urine Ketones 3+ H (Negative) Amorphous Sediment Rare H (None) /hpf Urine Mucus Many H (None) /hpf 05/30/19 Range/Units 01:30 WBC (3.8-10.6) k/uL Hct (34.0-46.0) % Neutrophils # (1.3-7.7) k/uL Glucose (74-99) mg/dL Total Protein (6.3-8.2) g/dL Urine Appearance (Clear) Urine Protein 1+ H (Negative) Urine Ketones 4+ H (Negative) Amorphous Sediment (None) /hpf Urine Mucus Many H (None) /hpf Assessment and Plan (1) Early stage of Status: Acute Code(s): Z34.90 - ENCNTR FOR SUPRVSN OF NORMAL , UNSP, UNSP TRIMESTER SNOMED Code(s): 267738667 (2) Hyperemesis gravidarum Status: Acute Code(s): O21.0 - MILD HYPEREMESIS GRAVIDARUM SNOMED Code(s): 38227437 (3) Intractable nausea and vomiting Status: Acute Code(s): R11.2 - NAUSEA WITH VOMITING, UNSPECIFIED SNOMED Code(s): 685834568 Plan: 1. Intractable nausea and vomiting. Secondary to HE vs marijuana withdrawal. Treat with pyridoxine and reglan
--- NOTE | 2019-05-30 16:55 | P.DS ---
Providers Date of admission: 05/30/19 02:51 Attending physician: Salinas Allen MD Primary care physician: Windy Shetty - Discharge Diagnosis(es) (1) Early stage of Status: Acute (2) Hyperemesis gravidarum Status: Acute (3) Intractable nausea and vomiting Status: Acute Hospital Course: Megan Schaffer is a 24 yo at approx 5 weeks gestation who presented to the ED last night after vomiting all day yesterday more than 20 times. She was recently seen in the ED 3 days ago for abdominal pain and at that time US revealed sac but did not visualize heartbeat. She states she formerly smoked MJ daily but discontinued that when she found out she was . She has no prior history of abdominal issues, denies vaginal bleeding or change to vaginal discharge. In the ED she had mild leukocytosis and 2+ urinary ketones. Pt was treated with reglan and pyridoxine. She tolerated breakfast with no further nausea. She is discharged with a script for pyridoxine and reglan and will follow up in clinic. Patient Condition at Discharge: Stable Plan - Discharge Summary New Discharge Prescriptions: New Pyridoxine [Vitamin B-6] 50 mg PO BID #60 tab Metoclopramide HCl [Reglan] 5 mg PO TID PRN #12 tablet PRN Reason: Nausea Continue lamoTRIgine [LaMICtal] 100 mg PO DAILY #14 tab Jvi-Boca-Lyfve Acid [-U Capsule (formulary)] 1 cap PO DAILY #40 cap DULoxetine HCL [Cymbalta] 30 mg PO DAILY ARIPiprazole [Abilify] 5 mg PO DAILY Discharge Medication List lamoTRIgine [LaMICtal] 100 mg PO DAILY #14 tab 06/29/18 [Rx] Dtp-Ukwk-Jihfx Acid [-U Capsule (formulary)] 1 cap PO DAILY #40 cap 05/26/19 [Rx] ARIPiprazole [Abilify] 5 mg PO DAILY 05/29/19 [History] DULoxetine HCL [Cymbalta] 30 mg PO DAILY 05/29/19 [History] Metoclopramide HCl [Reglan] 5 mg PO TID PRN #12 tablet 05/30/19 [Rx] Pyridoxine [Vitamin B-6] 50 mg PO BID #60 tab 05/30/19 [Rx] Follow up Appointment(s)/Referral(s): Windy Shetty DO [Primary Care Provider] - 1-2 days
== END 2019-05-30 11:28 | disposition home or self-care (01) ==
LOC: EC 21:17 → 1SOBS 05-30 02:51
PROVIDERS: ADMIT Family Medicine; ATTEND Family Medicine
DX: O21.1 Hyperemesis gravidarum with metabolic disturbance (principal); E86.0 Dehydration; E88.89 Other specified metabolic disorders; O99.611 Diseases of the digestive system complicating pregnancy, first trimester; K58.0 Irritable bowel syndrome with diarrhea; O99.111 Other diseases of the blood and blood-forming organs and certain disorders involving the immune mechanism complicating pregnancy, first trimester; D69.3 Immune thrombocytopenic purpura; D72.829 Elevated white blood cell count, unspecified; O99.341 Other mental disorders complicating pregnancy, first trimester; F41.9 Anxiety disorder, unspecified; F32.9 Major depressive disorder, single episode, unspecified; O99.331 Smoking (tobacco) complicating pregnancy, first trimester; F17.200 Nicotine dependence, unspecified, uncomplicated; Z86.14 Personal history of Methicillin resistant Staphylococcus aureus infection; Z3A.01 Less than 8 weeks gestation of pregnancy; Z81.8 Family history of other mental and behavioral disorders; Z82.49 Family history of ischemic heart disease and other diseases of the circulatory system; Z79.899 Other long term (current) drug therapy; Z88.8 Allergy status to other drugs, medicaments and biological substances
CPT/HCPCS: 96376; 96361 ×2; 96374; 96375; 99285; 36415; 86900; 86901; 80053; 83690; 85025; 81001; 84702; 76801; 76817; G0378; J1200; J2765 ×2

== ENCOUNTER 2019-12-27 12:28 | Outpatient (CLI) | payer OTHER | END 2019-12-27 13:41 | disposition home or self-care (01) | LOC: FBPOP 12:28 | PROVIDERS: ATTEND Obstetrics & Gynecology | DX: O13.3 Gestational [pregnancy-induced] hypertension without significant proteinuria, third trimester (principal); Z3A.36 36 weeks gestation of pregnancy | CPT/HCPCS: 59025; 81001; 82565; 82570; 83615; 84156; 84450; 84460; 84520; 84550; 85025; 99215 ==

== ENCOUNTER → 2020-01-03 | Outpatient (CLI) | payer OTHER ==
[2020-01-03 04:04] VITALS: BP 122/72; PULSE 113; RESP 18; TEMP 96.6
--- NOTE | 2020-01-30 12:10 | P.MSEPDOC ---
Presenting Problems - Arrival Data Date of Arrival on Unit: 01/03/20 Time of Arrival on Unit: 03:25 Mode of Transport: Ambulatory - Complaint OB-Reason for Admission/Chief Complaint: Decreased Movement Comment: Pt states decreased movement since 2199 Medical History - Information : 1 Para: 0 Term: 0 : 0 Abortions: Spontaneous or Elective: 0 Number of Living Children: 0 - Gestational Age Gestational Age by NAINA (wks/days): 37 Weeks and 5 Days - History Comment: Pt states increased AMRIK, has NST in office Review of Systems - Review of Systems Constitutional: No problems Breast: No problems ENT: No problems Cardiovascular: No problems Respiratory: No problems Gastrointestinal: No problems Genitourinary: No problems Musculoskeletal: No problems Neurological: No problems Skin: No problems Vital Signs - Temperature Temperature: 96.6 F Temperature Source: Temporal Artery Scan - Pulse Right Brachial Pulse Rate: 113 Pulse Assessment Method: Automatic Cuff - Respirations Respiratory Rate: 18 Oxygen Delivery Method: Room Air O2 Sat by Pulse Oximetry: 97 - Blood Pressure Right Arm Blood Pressure: 122/72 Blood Pressure Mean: 88 Blood Pressure Source: Automatic Cuff Medical Screen Scoring (Pre) - Cervical Exam Dilation: Exam Deferred Effacement: Exam Deferred - Uterine Contractions Frequency: N/A Duration: N/A Intensity: N/A - Maternal Vital Signs Maternal Temperature: N/A Signs of Preeclampsia: N/A Maternal Respirations: N/A - Assessment - Baby A Baseline FHR: 130 Heart Rate - NICHD Category: Category I (Normal) = 0 NST: Reactive Position: N/A Station: N/A - Total Score - Baby A Total Score - Baby A: 0 - Total Score - Baby B Total Score - Baby B: 0 - Total Score - Baby C Total Score - Baby C: 0 - Level of Risk - Baby A Level of Risk - Baby A: Low (0-5) - Level of Risk - Baby B Level of Risk - Baby B: Low (0-5) - Level of Risk - Baby C Level of Risk - Baby C: Low (0-5) Physician Notification (Pre) - Physician Notified Physician Notified Date: 01/03/20 Physician Notified Time: 03:38 - Notification Comment Comment: Reported reactive NST, orders to d/c pt home. Follow up 01/05 Medical Screen Scoring (Post) - Cervical Exam Dilation: Exam Deferred Effacement: Exam Deferred - Uterine Contractions Frequency: N/A Duration: N/A Intensity: N/A - Maternal Vital Signs Maternal Temperature: N/A Signs of Preeclampsia: N/A Maternal Respirations: N/A - Pain Assessment Pain Scale Used: Numeric (1 - 10) Pain Intensity: 0 - Maternal Trauma Maternal Trauma: N/A - Assessment - Baby A Heart Rate: 130 Heart Rate - NICHD Category: Category I (Normal) = 0 - Total Score Total Score - Baby A: 0 Total Score - Baby B: 0 Total Score - Baby C: 0 - Post Treatment Level of Risk Post Treatment Level of Risk - Baby A: Low (0-5) Physician Notification (Post) - Physician Notified Physician Notified Date: 01/03/20 Physician Notified Time: 03:38 Spoke With: Jesús - Notification Comment Comment: Reported reactive NST, orders to d/c pt home, follow up 01/05 Disposition - Disposition OB Disposition: Discharge to home, Written follow up instructions reviewed Discharge Date: 01/03/20 Discharge Time: 04:05 I agree with the RN Medical Screening Exam: Yes Risk & Benefit of care provided described in d/c instruction: Yes Diagnosis: RELATED CONDITIONS, UNSPECIFIED, THIRD TRIMESTER
== END | disposition home or self-care (01) ==
LOC: FBPOP 03:25
PROVIDERS: ATTEND Obstetrics & Gynecology
DX: O36.8130 Decreased fetal movements, third trimester, not applicable or unspecified (principal); Z3A.37 37 weeks gestation of pregnancy
CPT/HCPCS: 59025; 99213

== ENCOUNTER 2020-01-06 09:54 | Outpatient (CLI) | payer OTHER ==
--- NOTE | 2020-01-06 10:48 | US ---
EXAMINATION TYPE: US OB limited DATE OF EXAM: 01/06/2020 COMPARISON: US 2018 CLINICAL HISTORY: tachycardia at office visit. tachycardia at office visit today, sent by [employer]. EXAM PERFORMED: Transabdominal (TA) GESTATIONAL AGE / DATING Physician Established: (38 weeks/1 days) EDC: 01/19/2020 No growth performed on today?s study per ordering physician SURVEY AMRIK: 19.4 cm Normal Ultrasound evidence of premature rupture of membranes? no HEART RATE: 154 bpm RHYTHM: Normal IMPRESSION: heart rate of 154 bpm. Amniotic fluid index of 19.4 cm.
== END 2020-01-06 12:15 | disposition home or self-care (01) ==
LOC: FBPOP 09:54
PROVIDERS: ATTEND Obstetrics & Gynecology
DX: O36.8330 Maternal care for abnormalities of the fetal heart rate or rhythm, third trimester, not applicable or unspecified (principal); Z3A.38 38 weeks gestation of pregnancy
CPT/HCPCS: 59025; 76815

== ENCOUNTER 2020-01-07 | Outpatient (CLI) | payer OTHER | END 2020-01-07 01:55 | disposition home or self-care (01) | CPT/HCPCS: 59025; 99213; 99215 ==

== ENCOUNTER 2020-01-13 16:00 | Inpatient (IN) | payer OTHER ==
[2020-01-13] MEDS ORDERED: DINOPROSTONE 10 MG INSERT.ER VAGINAL ONE (16:14)
[2020-01-13 16:25] VITALS: RESP 16
[2020-01-13] MEDS ORDERED: BUTORPHANOL 1 MG/ML 1 ML VIAL IV PRN (20:21)
[2020-01-13] MEDS ORDERED: ACETAMINOPHEN TAB 325 MG TAB PO STA (23:17)
[2020-01-14] MEDS ORDERED: CARBOPROST TROMETHAMINE 250 MCG/ML 1 ML AMP IM PRN (05:50)
[2020-01-14] MEDS ORDERED: TERBUTALINE 1 MG/ML VIAL SQ PRN (05:50)
[2020-01-14] MEDS ORDERED: OXYTOCIN 10 UNIT/ML 1 ML VIAL IM PRN (05:50)
[2020-01-14] MEDS ORDERED: LIDOCAINE 0.5% (PF) 5 MG/ML (50 ML SDV) SQ PRN (05:50)
[2020-01-14] MEDS ORDERED: METHYLERGONOVINE 0.2 MG/ML 1 ML AMP IM PRN (05:50)
[2020-01-14] MEDS ORDERED: OXYTOCIN 30 UNITS/500 ML NS 30 UNIT in SALINE 1 500ML.BAG IV SCH (06:00)
[2020-01-14 06:02] LABS: Basophils % (A) 0 %; Eosinophils # (A) 0.1 k/uL (0-0.7); Eosinophils % (A) 1 %; HCT 38.3 % (34.0-46.0); HGB 12.7 gm/dL (11.4-16.0); Lymphocytes % (A) 21 %; MCH 29.8 pg (25.0-35.0); MCHC 33.3 g/dL (31.0-37.0); MCV 89.4 fL (80.0-100.0); Mean Platelet Volume 9.2; Monocytes # (A) 0.6 k/uL (0-1.0); Monocytes % (A) 4 %; Neutrophils # (A) 10.3 k/uL (1.3-7.7); Neutrophils % (A) 72 %; Platelet Count 192 k/uL (150-450); RBC 4.28 m/uL (3.80-5.40); WBC 14.4 k/uL (3.8-10.6)
[2020-01-14] MEDS: LACTATED RINGERS 1,000 ML IV SCH ×3 (06:02→14:16)
[2020-01-14] MEDS ORDERED: SODIUM CHLORIDE 0.9% 100 ML BAG ONE (13:42)
[2020-01-14] MEDS ORDERED: fentaNYL (PF) 50 MCG/ML 5 ML AMP ONE (13:42)
[2020-01-14] MEDS ORDERED: ROPIVACAINE 5MG/ML 20ML VIAL ONE (13:42)
[2020-01-14] MEDS ORDERED: ZOLPIDEM 5 MG TAB PO PRN (19:06)
[2020-01-14] MEDS ORDERED: LANOLIN CREAM 5 GM TUBE TOPICAL PRN (19:06)
[2020-01-14] MEDS ORDERED: BENZOCAINE/MENTHOL SPRAY 1 GM/SPRAY AEROSOL TOPICAL PRN (19:06)
[2020-01-14] MEDS ORDERED: WITCH HAZEL 1 EACH MED..PAD TOPICAL PRN (19:06)
[2020-01-14] MEDS ORDERED: SIMETHICONE 80 MG CHEWABLE PO PRN (19:06)
[2020-01-14] MEDS ORDERED: diphenhydrAMINE 50 MG CAP PO PRN (19:06)
[2020-01-14] MEDS ORDERED: diphenhydrAMINE 25 MG CAP PO PRN (19:06)
[2020-01-14] MEDS ORDERED: HYDROCORTISONE 2.5% RECTAL CREAM 30 GM TUBE RECTAL PRN (19:06)
[2020-01-14] MEDS ORDERED: diphenhydrAMINE 50 MG/ML 1 ML VIAL IVP PRN ×2 (19:06)
[2020-01-14] MEDS ORDERED: ACETAMINOPHEN TAB 325 MG TAB PO PRN (19:06)
--- NOTE | 2020-01-14 19:10 | P.HPOB ---
History of Present Illness H&P Date: 01/13/20 Chief Complaint: Induction of labor 24-year-old presents at 39 weeks for induction of labor. Her cervix is 1, thick, -3 station. She is here for two-stage induction of labor Cervidil tonight and then Pitocin in the morning. heart tones are 130 with moderate variability and reactive. She is not alberto. Review of Systems All systems: negative Constitutional: Denies chills, Denies fever Eyes: denies blurred vision, denies pain Ears, nose, mouth and throat: Denies headache, Denies sore throat Cardiovascular: Denies chest pain, Denies shortness of breath Respiratory: Denies cough Gastrointestinal: Denies abdominal pain, Denies diarrhea, Denies nausea, Denies vomiting Genitourinary: Denies dysuria, Denies hematuria Musculoskeletal: Denies myalgias Integumentary: Denies pruritus, Denies rash Neurological: Denies numbness, Denies weakness Psychiatric: Denies anxiety, Denies depression Endocrine: Denies fatigue, Denies weight change 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 Obstetric history: This is her first . She's had care with me since the first trimester. Blood type is A+, and base negative, rubella immune, Pap is B-, GBS negative, HIV nonreactive, RPR nonreactive. She has remained on her bipolar medications through her . History of Any Multi-Drug Resistant Organisms: MRSA Date of last positivie culture/infection: 2015 MDRO Source:: urine Past Surgical History: No Surgical Hx Reported Past Anesthesia/Blood Transfusion Reactions: No Reported Reaction Past Psychological History: Anxiety, Bipolar, Depression Smoking Status: Former smoker Past Alcohol Use History: None Reported Past Drug Use History: Marijuana Additional Drug Use History / Comment(s): Pt states that she smokes MJ daily- one joint. Is currently and does not smoke anything - Past Family History Father Additional Family Medical History / Comment(s): Bipolar Mother Family Medical History: Hypertension, Pulmonary Embolus Additional Family Medical History / Comment(s): Depression, Anxiety, PTSD Sister(s) Family Medical History: No Reported History Brother(s) Family Medical History: No Reported History Medications and Allergies Home Medications Medication Instructions Recorded Confirmed Type lamoTRIgine [LaMICtal] 100 mg PO DAILY #14 tab 06/29/18 01/13/20 Rx Etp-Vtbj-Fqlsd Acid 1 cap PO DAILY #40 cap 05/26/19 01/13/20 Rx [-U Capsule (formulary)] ARIPiprazole [Abilify] 4 mg PO DAILY 05/29/19 01/13/20 History DULoxetine HCL [Cymbalta] 60 mg PO DAILY 05/29/19 01/13/20 History Pyridoxine [Vitamin B-6] 50 mg PO BID #60 tab 05/30/19 01/13/20 Rx Allergies Allergy/AdvReac Type Severity Reaction Status Date / Time olanzapine [From Zyprexa] Allergy Unknown Verified 01/13/20 16:10 Exam Osteopathic Statement: *. No significant issues noted on an osteopathic structural exam other than those noted in the History and Physical/Consult. Intake and Output 01/14/20 01/14/20 01/14/20 06:59 14:59 22:59 Other: # Voids 1 2 Heart: Regular rate and rhythm Lungs: Clear to auscultation bilaterally Abdomen: Soft, nontender Extremities: Negative Homans sign Results Result Diagrams: 01/14/20 05:52 Abnormal Lab Results - Last 24 Hours (Table) 01/14/20 Range/Units 05:52 WBC 14.4 H (3.8-10.6) k/uL Neutrophils # 10.3 H (1.3-7.7) k/uL Assessment and Plan (1) Normal labor Current Visit: Yes Status: Acute Code(s): O80 - ENCOUNTER FOR FULL-TERM UNCOMPLICATED DELIVERY; Z37.9 - OUTCOME OF DELIVERY, UNSPECIFIED SNOMED Code(s): 35245591 Plan: 1. Induction of labor with Cervidil and then Pitocin and amniotomy. 2. Anticipate normal vaginal delivery
--- NOTE | 2020-01-14 19:13 | P.PROBDLV ---
Vaginal Delivery Note - . Vaginal Delivery Note: 24-year-old presents at 39 weeks for induction of labor. Her cervix was 1 cm dilated, thick, Smethers 3 station. She was not alberto and heart tones are 130 with moderate variability and reactive. Cervidil was placed. In the morning her cervix was dilated 1-2 cm, 70% effaced, and -2 station. She is alberto irregularly. Amniotomy was performed at 7:41 AM and clear fluid noted. Pitocin had been started. When she was uncomfortable she did get one dose of Stadol. When she was about 3-4 cm she got an epidural was comfortable. Her cervix was completely dilated at 1830. She pushed, delivered a viable male infant over intact perineum under epidural anesthesia at 1850. Head delivered OA, nuchal cord 1 easily reduced, anterior shoulder delivered gentle downward guidance for by posterior shoulder and rest of body. Nose and mouth bulb s uctioned, cord clamped, infant placed mother's abdomen. Apgars 9, 10, weight 7 lbs. 4 oz. Placenta delivered spontaneously, intact with three-vessel cord at 1852. Vagina, cervix, and perineum were inspected. First-degree midline laceration was repaired with 3-0 Vicryl. Quantitative blood loss was 75 mL. Mother and baby in stable condition.
[2020-01-14] MEDS ORDERED: OXYTOCIN 20 UNITS/1000 ML NS 1,000 ML IV SCH (19:15)
[2020-01-14] MEDS ORDERED: PYRIDOXINE 50 MG TAB PO SCH (21:00)
[2020-01-14] MEDS: SENNOSIDES-DOCUSATE SODIUM 1 EACH TAB PO SCH (21:51)
[2020-01-15] MEDS: IBUPROFEN 600 MG TAB PO PRN ×3 (03:13→15:57)
--- NOTE | 2020-01-15 06:50 | P.DS ---
Providers Date of admission: 01/13/20 16:00 Expected date of discharge: 01/15/20 Attending physician: Latoya Liao Primary care physician: Stated None - Discharge Diagnosis(es) (1) Normal labor Current Visit: Yes Status: Resolved (2) Normal vaginal delivery Current Visit: Yes Status: Acute Hospital Course: Patient presented for induction of labor. She underwent a normal vaginal delivery. Her course was uncomplicated. She'll be discharged home day #1 in stable condition to follow-up with me in 3 weeks. We did talk about her mental health. She will stay on her current medications and does section for pretty good right now. I instructed her and her mother that if the patient has any increased bleeding, trouble with her moods, any questions at all that she should return to me. Plan - Discharge Summary New Discharge Prescriptions: New Ibuprofen [Motrin] 600 mg PO Q6HR PRN #30 tab PRN Reason: Mild Pain Or Fever >= 100.5 No Action lamoTRIgine [LaMICtal] 100 mg PO DAILY #14 tab Tzi-Fgiy-Agobk Acid [-U Capsule (formulary)] 1 cap PO DAILY #40 cap DULoxetine HCL [Cymbalta] 60 mg PO DAILY ARIPiprazole [Abilify] 4 mg PO DAILY Pyridoxine [Vitamin B-6] 50 mg PO BID #60 tab Discharge Medication List lamoTRIgine [LaMICtal] 100 mg PO DAILY #14 tab 06/29/18 [Rx] Acn-Uiip-Acgeq Acid [-U Capsule (formulary)] 1 cap PO DAILY #40 cap 05/26/19 [Rx] ARIPiprazole [Abilify] 4 mg PO DAILY 05/29/19 [History] DULoxetine HCL [Cymbalta] 60 mg PO DAILY 05/29/19 [History] Pyridoxine [Vitamin B-6] 50 mg PO BID #60 tab 05/30/19 [Rx] Ibuprofen [Motrin] 600 mg PO Q6HR PRN #30 tab 01/15/20 [Rx] Follow up Appointment(s)/Referral(s): Latoya Liao DO [Doctor of Osteopathic Medicine] - 3 Weeks
[2020-01-15 06:56] LABS: Basophils % (A) 0 %; Eosinophils # (A) 0.1 k/uL (0-0.7); Eosinophils % (A) 0 %; HCT 35.1 % (34.0-46.0); HGB 11.5 gm/dL (11.4-16.0); Lymphocytes # (A) 2.7 k/uL (1.0-4.8); Lymphocytes % (A) 16 %; MCH 29.5 pg (25.0-35.0); MCHC 32.9 g/dL (31.0-37.0); MCV 89.6 fL (80.0-100.0); Mean Platelet Volume 9.8; Monocytes # (A) 0.6 k/uL (0-1.0); Monocytes % (A) 4 %; Neutrophils # (A) 13.5 k/uL (1.3-7.7); Neutrophils % (A) 78 %; Platelet Count 180 k/uL (150-450); RBC 3.91 m/uL (3.80-5.40); RDW 14.1 % (11.5-15.5); WBC 17.3 k/uL (3.8-10.6)
[2020-01-15] MEDS: SENNOSIDES-DOCUSATE SODIUM 1 EACH TAB PO SCH (08:21)
[2020-01-15] MEDS ORDERED: ARIPiprazole 5 MG TAB PO SCH (09:00)
[2020-01-15] MEDS ORDERED: lamoTRIgine 100 MG TAB PO SCH (09:00)
[2020-01-15] MEDS ORDERED: DULoxetine HCL 30 MG CAPSULE.DR PO SCH (09:00)
[2020-01-15] MEDS ORDERED: PRENATAL VIT-IRON-FOLIC ACID 1 EACH CAP PO SCH (09:00)
[2020-01-15 16:18] VITALS: BP 136/77; PULSE 90; TEMP 98.1
== END 2020-01-15 19:05 | disposition home or self-care (01) | DRG 807 ==
LOC: 4FBP 16:00
PROVIDERS: ADMIT Obstetrics & Gynecology; ATTEND Obstetrics & Gynecology
PROC: 0HQ9XZZ Repair Perineum Skin, External Approach (ICD-10-PCS; 2020-01-13)
PROC: 3E0R3NZ Introduction of Analgesics, Hypnotics, Sedatives into Spinal Canal, Percutaneous Approach (ICD-10-PCS; 2020-01-13)
PROC: 10907ZC Drainage of Amniotic Fluid, Therapeutic from Products of Conception, Via Natural or Artificial Opening (ICD-10-PCS; 2020-01-13)
PROC: 3E0P7VZ Introduction of Hormone into Female Reproductive, Via Natural or Artificial Opening (ICD-10-PCS; 2020-01-13)
PROC: 00HU33Z Insertion of Infusion Device into Spinal Canal, Percutaneous Approach (ICD-10-PCS; 2020-01-13)
PROC: 10E0XZZ Delivery of Products of Conception, External Approach (ICD-10-PCS; principal; 2020-01-14)
DX: O69.81X0 Labor and delivery complicated by cord around neck, without compression, not applicable or unspecified (principal); Z37.0 Single live birth; O99.344 Other mental disorders complicating childbirth; Z3A.39 39 weeks gestation of pregnancy; O70.0 First degree perineal laceration during delivery; Z86.14 Personal history of Methicillin resistant Staphylococcus aureus infection; F31.9 Bipolar disorder, unspecified; F41.9 Anxiety disorder, unspecified; Z79.899 Other long term (current) drug therapy; Z81.8 Family history of other mental and behavioral disorders; Z82.49 Family history of ischemic heart disease and other diseases of the circulatory system; Z87.891 Personal history of nicotine dependence; Z88.8 Allergy status to other drugs, medicaments and biological substances
CPT/HCPCS: 85025; 86850; 86900; 86901

== ENCOUNTER 2020-06-22 13:11 | Emergency (ER) | payer OTHER ==
[2020-06-22 13:29] VITALS: RESP 18; TEMP 98.7
[2020-06-22] MEDS ORDERED: IBUPROFEN 600 MG TAB PO STA (14:30)
[2020-06-22] MEDS ORDERED: LIDOCAINE 2% GEL 30 ML TUBE TOPICAL ONE (14:31)
--- NOTE | 2020-06-22 14:37 | ED ---
Female Urogenital HPI - General Chief complaint: Urogenital Stated complaint: Urogenital Time Seen by Provider: 06/22/20 14:22 Source: patient Mode of arrival: ambulatory Limitations: no limitations - History of Present Illness Initial comments: 25-year-old female patient presents to the emergency department today for evaluation of genital pain. Patient states that she was seen at [facility] yesterday and was diagnosed with a urinary tract infection. Patient states she also had wounds to her labia from shaving. He states whenever she urinates the pain is very intense and burning. States that she is currently on her period. States that they did start her on Macrobid which she has been taking. States that she feels like her symptoms are worsening rather than getting better. She denies any nausea or vomiting. Denies flank pain. Denies fever or chills. States that they did do ST testing at the urgent care but she does not have results back yet. Patient is on control. Patient denies any recent rash, cough, shortness of breath, chest pain, diarrhea, constipation, back pain, numbness, tingling, dizziness, weakness, headache, visual changes, or any other complaints. Last Menstrual Period: 06/21/20 - Related Data Home Medications Medication Instructions Recorded Confirmed ARIPiprazole [Abilify] 4 mg PO DAILY 05/29/19 01/13/20 DULoxetine HCL [Cymbalta] 60 mg PO DAILY 05/29/19 01/13/20 Previous Rx's Medication Instructions Recorded lamoTRIgine [LaMICtal] 100 mg PO DAILY #14 tab 06/29/18 [id number] Acid 1 cap PO DAILY #40 cap 05/26/19 [-U Capsule (formulary)] Pyridoxine [Vitamin B-6] 50 mg PO BID #60 tab 05/30/19 Ibuprofen [Motrin] 600 mg PO Q6HR PRN #30 tab 01/15/20 Cephalexin [Keflex] 500 mg PO BID #14 cap 06/22/20 Allergies Allergy/AdvReac Type Severity Reaction Status Date / Time olanzapine [From Zyprexa] Allergy Unknown Verified 06/22/20 13:30 Review of Systems ROS Statement: Those systems with pertinent positive or pertinent negative responses have been documented in the HPI. ROS Other: All systems not noted in ROS Statement are negative. 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 Obstetric history: This is her first . She's had care with me since the first trimester. Blood type is A+, and base negative, rubella immune, Pap is B-, GBS negative, HIV nonreactive, RPR nonreactive. She has remained on her bipolar medications through her . History of Any Multi-Drug Resistant Organisms: MRSA Date of last positivie culture/infection: 2015 MDRO Source:: urine Past Surgical History: No Surgical Hx Reported Past Anesthesia/Blood Transfusion Reactions: No Reported Reaction Past Psychological History: Anxiety, Bipolar, Depression Smoking Status: Vaper Past Alcohol Use History: None Reported Past Drug Use History: Marijuana - Past Family History Father Additional Family Medical History / Comment(s): Bipolar Mother Family Medical History: Hypertension, Pulmonary Embolus Additional Family Medical History / Comment(s): Depression, Anxiety, PTSD Sister(s) Family Medical History: No Reported History Brother(s) Family Medical History: No Reported History General Exam Limitations: no limitations General appearance: alert, in no apparent distress, other (This is a well- developed, well-nourished adult female patient in no acute distress. Vital signs upon presentation are temperature 98.7F, pulse 80, respirations 18, blood pressure 145/69, pulse ox 99% on room air.) Eye exam: Present: normal appearance, PERRL, EOMI. Absent: scleral icterus, conjunctival injection, periorbital swelling Respiratory exam: Present: normal lung sounds bilaterally. Absent: respiratory distress, wheezes, rales, rhonchi, stridor Cardiovascular Exam: Present: regular rate, normal rhythm, normal heart sounds. Absent: systolic murmur, diastolic murmur, rubs, gallop, clicks GI/Abdominal exam: Present: soft, normal bowel sounds. Absent: distended, tenderness, guarding, rebound, rigid External exam: Present: lacerations (Multiple to the labia majora, no surrounding erythema, no drainage. ) Neurological exam: Present: alert, oriented X3, CN II-XII intact Psychiatric exam: Present: normal affect, normal mood Skin exam: Present: warm, dry, intact, normal color. Absent: rash Course Vital Signs 06/22/20 06/22/20 13:23 16:15 Temperature 98.7 F Pulse Rate 80 75 Respiratory 18 18 Rate Blood Pressure 145/69 122/73 O2 Sat by Pulse 99 99 Oximetry Medical Decision Making - Medical Decision Making 25-year-old female patient presented to the emergency department today for evaluation of genital pain and dysuria. Physical examination did reveal multiple wounds to the labia majora, patient states he is were sustained while shaving. There is no evidence for infection or abscess. Urinalysis was performed and did show evidence for urinary tract infection. Patient has been taking Macrobid for 2 days with no improvement in symptoms. We will send urine for culture and switch to Keflex. She'll also be given lidocaine jelly to apply topically for symptom relief. She is instructed to increase fluids and to continue Pyridium. She is instructed follow up with her primary care physician recheck in 1-2 days. Return parameters were discussed in detail. She verbalizes understanding and agrees with this plan. - Lab Data Lab Results 06/22/20 06/22/20 Range/Units 14:20 14:20 Urine Color Dark Brown Urine Appearance Cloudy H (Clear) Urine pH 5.5 (5.0-8.0) Ur Specific Clare 1.019 (1.001-1.035) Urine Protein Trace H (Negative) Urine Glucose (UA) Negative (Negative) Urine Ketones Negative (Negative) Urine Blood Moderate H (Negative) Urine Nitrite Positive H (Negative) Urine Bilirubin 1+ H (Negative) Urine Urobilinogen 3.0 (<2.0) mg/dL Ur Leukocyte Esterase Large H (Negative) Urine RBC 65 H (0-5) /hpf Urine WBC 174 H (0-5) /hpf Ur Squamous Epith Cells 1 (0-4) /hpf Urine Bacteria Rare H (None) /hpf Urine Mucus Rare H (None) /hpf Urine HCG, Qual Not Detected (Not Detectd) Disposition Clinical Impression: Urinary tract infection, Open wound of genital labia Disposition: HOME SELF-CARE Condition: Good Instructions (If sedation given, give patient instructions): Urinary Tract Infection in Women (ED), Acute Wound Care (ED) Additional Instructions: Keep wound areas clean and dry. Cleanse twice daily with warm water and antibacterial soap. Use lidocaine jelly prior to urination episodes to assist with pain. Take Tylenol Motrin for pain control. Complete antibiotic prescription and full. Follow-up through primary care physician for recheck in 1-2 days. Return to the emergency department immediately for any new, worsenin g, or concerning symptoms. Prescriptions: Cephalexin [Keflex] 500 mg PO BID #14 cap Is patient prescribed a controlled substance at d/c from ED?: No Referrals: None,Stated [Primary Care Provider] - 1-2 days Time of Disposition: 15:53
[2020-06-22 15:28] LABS: Appearance,Urine Cloudy (Clear); Bacteria,Urine Rare /hpf; Bilirubin,Urine 1+ (Negative); Blood,Urine Moderate (Negative); Color,Urine Dark Brown; Glucose,Urine (UA) Negative (Negative); Ketones,Urine Negative (Negative); Leukocyte Esterase,Urine Large (Negative); Mucus,Urine Rare /hpf; Nitrite,Urine Positive (Negative); PH, Urine 5.5 (5.0-8.0); Protein,Urine Trace (Negative); RBC,Urine 65 /hpf (0-5); Specific Gravity,Urine 1.019 (1.001-1.035); Squamous Epithelial Cell,Urine 1 /hpf (0-4); WBC,Urine 174 /hpf (0-5)
[2020-06-22] MEDS ORDERED: CEPHALEXIN 500MG STARTER PACK 4 CAP BTL PO STA (15:46)
[2020-06-22 16:16] VITALS: BP 122/73; PULSE 75
== END 2020-06-22 16:16 | disposition home or self-care (01) ==
LOC: EC 13:11
DX: N39.0 Urinary tract infection, site not specified (principal); S31.40XA Unspecified open wound of vagina and vulva, initial encounter; F41.9 Anxiety disorder, unspecified; F31.9 Bipolar disorder, unspecified; F17.290 Nicotine dependence, other tobacco product, uncomplicated; Z79.899 Other long term (current) drug therapy; Z88.8 Allergy status to other drugs, medicaments and biological substances; Z86.14 Personal history of Methicillin resistant Staphylococcus aureus infection; X58.XXXA Exposure to other specified factors, initial encounter; Y93.89 Activity, other specified
CPT/HCPCS: 81001; 81025; 87086; 99284

== ENCOUNTER 2020-09-02 10:59 | Emergency (ER) | payer OTHER ==
--- NOTE | 2020-09-02 13:08 | ED ---
General Adult HPI - General Chief complaint: Psychiatric Symptoms Stated complaint: mental health Time Seen by Provider: 09/02/20 11:05 Source: patient, RN notes reviewed, old records reviewed Mode of arrival: ambulatory Limitations: no limitations - History of Present Illness Initial comments: This is a 25-year-old female presents emergency Department with a past medical history significant for depression. Patient states she's here today because she's been having suicidal ideations for a week. Patient is very upset about her relationship with the father of her 7-month-old baby. Patient states he's thinking of drinking heavily and then trying to drown herself. Patient states she did attempt this once before. Patient states she's on multiple medications but she's lost her psychiatrist and she doesn't think they're working. Patient denies any physical complaints today. - Related Data Home Medications Medication Instructions Recorded Confirmed ARIPiprazole [Abilify] 5 mg PO DAILY 05/29/19 09/02/20 ARIPiprazole [Abilify] 2 mg PO DAILY 09/02/20 09/02/20 DULoxetine HCL [Cymbalta] 60 mg PO DAILY 09/02/20 09/02/20 hydrOXYzine pamoate [Vistaril] 25 mg PO BID PRN 09/02/20 09/02/20 Previous Rx's Medication Instructions Recorded lamoTRIgine [LaMICtal] 100 mg PO DAILY #14 tab 06/29/18 Allergies Allergy/AdvReac Type Severity Reaction Status Date / Time olanzapine [From Zyprexa] Allergy Unknown Verified 09/02/20 11:53 Review of Systems ROS Statement: Those systems with pertinent positive or pertinent negative responses have been documented in the HPI. ROS Other: All systems not noted in ROS Statement are negative. 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 Date of last positivie culture/infection: 2015 MDRO Source:: urine Past Surgical History: No Surgical Hx Reported Past Anesthesia/Blood Transfusion Reactions: No Reported Reaction Past Psychological History: Anxiety, Bipolar, Depression Smoking Status: Vaper Past Alcohol Use History: Occasional Past Drug Use History: Marijuana - Past Family History Father Additional Family Medical History / Comment(s): Bipolar Mother Family Medical History: Hypertension, Pulmonary Embolus Additional Family Medical History / Comment(s): Depression, Anxiety, PTSD Sister(s) Family Medical History: No Reported History Brother(s) Family Medical History: No Reported History General Exam - General Exam Comments Initial Comments: GENERAL: Patient is well-developed and well-nourished. Patient is nontoxic and well- hydrated and is in no acute distress. ENT: Neck is soft and supple. No significant lymphadenopathy is noted. Oropharynx is clear. Moist mucous membranes. Neck has full range of motion without eliciting any pain. EYES: The sclera were anicteric and conjunctiva were pink and moist. Extraocular movements were intact and pupils were equal round and reactive to light. Eyelids were unremarkable. PULMONARY: Unlabored respirations. Good breath sounds bilaterally. No audible rales rhonchi or wheezing was noted. CARDIOVASCULAR: There is a regular rate and rhythm without any murmurs gallops or rubs. ABDOMEN: Soft and nontender with normal bowel sounds. SKIN: Skin is clear with no lesions or rashes and otherwise unremarkable. NEUROLOGIC: Patient is alert and oriented x3. Cranial nerves II through XII are grossly intact. Motor and sensory are also intact. Normal speech, volume and content. Symmetrical smile. MUSCULOSKELETAL: Normal extremities with adequate strength and full range of motion. LYMPHATICS: No significant lymphadenopathy is noted PSYCHIATRIC: Patient is very depressed and states she is suicidal. Limitations: no limitations Course Vital Signs 09/02/20 09/02/20 09/02/20 11:07 14:20 18:39 Temperature 97.8 F 98.2 F Pulse Rate 92 80 79 Respiratory 18 16 16 Rate Blood Pressure 137/97 132/79 137/79 O2 Sat by Pulse 100 98 Oximetry Medical Decision Making - Lab Data Lab Results 09/02/20 Range/Units 13:05 Urine Opiates Screen Not Detected (NotDetected) Ur Oxycodone Screen Not Detected (NotDetected) Urine Methadone Screen Not Detected (NotDetected) Ur Propoxyphene Screen Not Detected (NotDetected) Ur Barbiturates Screen Not Detected (NotDetected) U Tricyclic Antidepress Not Detected (NotDetected) Ur Phencyclidine Scrn Not Detected (NotDetected) Ur Amphetamines Screen Not Detected (NotDetected) U Methamphetamines Scrn Not Detected (NotDetected) U Benzodiazepines Scrn Not Detected (NotDetected) Urine Cocaine Screen Not Detected (NotDetected) U Marijuana (THC) Screen Detected H (NotDetected) Disposition Clinical Impression: Suicidal ideation, Depression Disposition: TRANSFER TO PSYCH HOSP/UNIT Referrals: None,Stated [Primary Care Provider] - 1-2 days
[2020-09-02 14:01] LABS: Amphetamine Screen,Urine Not Detected (NotDetected); Barbiturate Screen,Urine Not Detected (NotDetected); Benzodiazepines Screen,Urine Not Detected (NotDetected); Cocaine Screen,Urine Not Detected (NotDetected); Methadone Screen, Urine Not Detected (NotDetected); Opiate Screen,Urine Not Detected (NotDetected); Oxycodone Screen, Urine Not Detected (NotDetected); Phencyclidine Screen,Urine Not Detected (NotDetected); Tricyclic Antidepressant,Urine Not Detected (NotDetected); Urn Cannabinoid Scrn Detected (NotDetected)
[2020-09-02 14:21] VITALS: RESP 16
[2020-09-02 18:42] VITALS: BP 137/79; PULSE 79; TEMP 98.2
[2020-09-02] MEDS ORDERED: LORazepam 1 MG TAB PO STA (19:03)
== END 2020-09-02 20:25 ==
LOC: EC 10:59
DX: F31.9 Bipolar disorder, unspecified (principal); F41.9 Anxiety disorder, unspecified; F17.290 Nicotine dependence, other tobacco product, uncomplicated; Z79.899 Other long term (current) drug therapy; Z88.8 Allergy status to other drugs, medicaments and biological substances; Z86.14 Personal history of Methicillin resistant Staphylococcus aureus infection
CPT/HCPCS: 80306; 82075; 99285

== ENCOUNTER 2021-03-08 08:57 | Emergency (ER) | payer OTHER ==
[2021-03-08 09:03] VITALS: RESP 18
[2021-03-08] MEDS ORDERED: KETOROLAC 15 MG/ML 1 ML VIAL IM STA (09:10)
--- NOTE | 2021-03-08 09:13 | ED ---
General Adult HPI - General Chief complaint: Neck Pain/Injury Stated complaint: Neck Pain Time Seen by Provider: 03/08/21 09:04 Source: patient, RN notes reviewed Mode of arrival: ambulatory Limitations: no limitations - History of Present Illness Initial comments: Patient is a pleasant 25-year-old female sitting to the emergency Department with right-sided neck and shoulder discomfort. Onset of symptoms was when she woke yesterday morning. Discomfort is mild to moderate but severe with movement. Discomfort extends from the right lower neck region to the right shoulder, more so posteriorly. Discomfort is increased with movement at the shoulder. No arm problems otherwise. No weakness. No history of similar symptoms previously. Patient states she did have covid 19 infetion around 6 weeks ago. No cough or dyspnea. No leg pain or leg swelling. Patient denies fevers - Related Data Home Medications Medication Instructions Recorded Confirmed hydrOXYzine pamoate [hydrOXYzine 50 mg PO TID PRN 03/08/21 03/08/21 PAMOATE] Previous Rx's Medication Instructions Recorded Cyclobenzaprine [Flexeril] 10 mg PO TID PRN #12 tablet 03/08/21 Ibuprofen [Motrin] 600 mg PO Q6HR PRN #20 tab 03/08/21 Allergies Allergy/AdvReac Type Severity Reaction Status Date / Time olanzapine [From Zyprexa] Allergy Unknown Verified 03/08/21 09:00 Review of Systems ROS Statement: Those systems with pertinent positive or pertinent negative responses have been documented in the HPI. ROS Other: All systems not noted in ROS Statement are negative. 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 Date of last positivie culture/infection: 2015 MDRO Source:: urine Past Surgical History: No Surgical Hx Reported Past Anesthesia/Blood Transfusion Reactions: No Reported Reaction Past Psychological History: Anxiety, Bipolar, Depression Smoking Status: Vaper Past Alcohol Use History: Occasional Past Drug Use History: Marijuana - Past Family History Father Additional Family Medical History / Comment(s): Bipolar Mother Family Medical History: Hypertension, Pulmonary Embolus Additional Family Medical History / Comment(s): Depression, Anxiety, PTSD Sister(s) Family Medical History: No Reported History Brother(s) Family Medical History: No Reported History General Exam Limitations: no limitations General appearance: alert, in no apparent distress Head exam: Present: normocephalic Eye exam: Present: normal appearance ENT exam: Present: normal oropharynx, TM's normal bilaterally Neck exam: Present: tenderness (Right lower lateral cervical region with extension to the upper trapezius and towards the shoulder, posteriorly), lymphadenopathy (There is a small node right lateral neck without significant swelling. There is some tenderness here.) Respiratory exam: Present: normal lung sounds bilaterally Cardiovascular Exam: Present: regular rate, normal rhythm Expanded Peripheral pulses: 2+: Carotid (R), Radial (R) GI/Abdominal exam: Present: soft. Absent: tenderness Extremities exam: Present: normal inspection, other (Discomfort with range of motion at the shoulder. Distally the extremity is resting tach.). Absent: pedal edema, calf tenderness Back exam: Present: tenderness (Right upper trapezius) Neurological exam: Present: alert. Absent: motor sensory deficit Psychiatric exam: Present: normal affect, normal mood Skin exam: Present: normal color Course Vital Signs 03/08/21 09:00 Temperature 98.2 F Pulse Rate 88 Respiratory 18 Rate Blood Pressure 119/88 O2 Sat by Pulse 100 Oximetry Medical Decision Making - Medical Decision Making Discussion had with patient regarding questionable early infection secondary to tender lymph node. Patient denies fever. No other abnormality suspicious for infectious process on exam. Patient is advised to be reevaluated if concern for infection. Patient will be treated otherwise for trapezius strain and still is advised close follow-up with primary care physician. Patient was offered antibiotics however will defer at this time. Disposition Clinical Impression: Trapezius strain Disposition: HOME SELF-CARE Condition: Stable Instructions (If sedation given, give patient instructions): Cervical Strain (ED), Muscle Strain (ED) Additional Instructions: Please follow-up with primary care physician in the next day or 2 for recheck. Return for fevers, discomfort of the ear or throat, difficulty breathing, weakness, increased pain, worsening or change in symptoms or any other concerns. Prescription has been sent over to [facility] Prescriptions: Cyclobenzaprine [Flexeril] 10 mg PO TID PRN #12 tablet PRN Reason: Pain Ibuprofen [Motrin] 600 mg PO Q6HR PRN #20 tab PRN Reason: Pain Is patient prescribed a controlled substance at d/c from ED?: No Referrals: Dominick Dutton [STAFF PHYSICIAN] - 1-2 days Time of Disposition: 09:43
--- NOTE | 2021-03-08 09:35 | XR ---
EXAMINATION TYPE: XR chest 2V DATE OF EXAM: 03/08/2021 COMPARISON: NONE TECHNIQUE: PA and lateral views submitted. HISTORY: Pain FINDINGS: The lungs are clear and there is no pneumothorax, pleural effusion, or focal pneumonia. Heart size normal. No overt failure. IMPRESSION: 1. No acute process.
[2021-03-08 10:01] VITALS: BP 132/82; PULSE 82; TEMP 98.8
== END 2021-03-08 09:58 | disposition home or self-care (01) ==
LOC: EC 08:57
DX: S29.012A Strain of muscle and tendon of back wall of thorax, initial encounter (principal); Z79.1 Long term (current) use of non-steroidal anti-inflammatories (NSAID); Z82.49 Family history of ischemic heart disease and other diseases of the circulatory system; X58.XXXA Exposure to other specified factors, initial encounter
CPT/HCPCS: 71046; 99283; 96372; J1885

== ENCOUNTER 2021-07-19 12:44 | Emergency (ER) | payer OTHER ==
[2021-07-19 13:30] VITALS: RESP 18
--- NOTE | 2021-07-19 13:31 | ED ---
General Adult HPI - General Source: patient, RN notes reviewed Mode of arrival: ambulatory Limitations: no limitations <Josesito Oakley - Last Filed: 07/19/21 13:28> <Jorge Granger - Last Filed: 07/19/21 16:26> - General Stated complaint: NE Time Seen by Provider: 07/19/21 13:10 - History of Present Illness Initial comments: This a 26-year-old female presents emergency Department chief complaint of shortness of breath. Patient states she woke up with the symptoms today. Patient states she she feels that she cannot get a full deep breath in. Patient denies any significant congestion she's had a slight cough. States she just feels weak, patient denies abdominal complaints. (Josesito Oakley) This is a well-appearing 26-year-old female, presents to emergency room after waking up this morning feeling short of breath. She states that she does have a history of anxiety but didn't feel like a panic attack. She states that she has resolved her symptoms at this time. She denies any fevers, sick exposures. She states that she does check her blood pressure and at home and it has been elevated. When she goes to her doctor, Dr. Perrin, he states that it is normal. (Jorge Granger) - Related Data Home Medications Medication Instructions Recorded Confirmed hydrOXYzine pamoate [hydrOXYzine 50 mg PO TID PRN 03/08/21 03/08/21 PAMOATE] Previous Rx's Medication Instructions Recorded Cyclobenzaprine [Flexeril] 10 mg PO TID PRN #12 tablet 03/08/21 Ibuprofen [Motrin] 600 mg PO Q6HR PRN #20 tab 03/08/21 Allergies Allergy/AdvReac Type Severity Reaction Status Date / Time olanzapine [From Zyprexa] Allergy Unknown Verified 07/19/21 13:28 Review of Systems ROS Other: All systems not noted in ROS Statement are negative. <Josesito Oakley - Last Filed: 07/19/21 13:28> ROS Other: All systems not noted in ROS Statement are negative. <Jorge Granger - Last Filed: 07/19/21 16:26> ROS Statement: Those systems with pertinent positive or pertinent negative responses have been documented in the HPI. 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 Date of last positivie culture/infection: 2016 MDRO Source:: urine Past Surgical History: No Surgical Hx Reported Past Anesthesia/Blood Transfusion Reactions: No Reported Reaction Past Psychological History: Anxiety, Bipolar, Depression Smoking Status: Vaper Past Alcohol Use History: Occasional Past Drug Use History: Marijuana - Past Family History Father Additional Family Medical History / Comment(s): Bipolar Mother Family Medical History: Hypertension, Pulmonary Embolus Additional Family Medical History / Comment(s): Depression, Anxiety, PTSD Sister(s) Family Medical History: No Reported History Brother(s) Family Medical History: No Reported History <Josesito Oakley - Last Filed: 07/19/21 13:28> General Exam General appearance: alert, in no apparent distress Head exam: Present: atraumatic, normocephalic, normal inspection ENT exam: Present: normal exam, normal oropharynx, mucous membranes moist Neck exam: Present: normal inspection, full ROM. Absent: tenderness, meningismus, lymphadenopathy Respiratory exam: Present: normal lung sounds bilaterally. Absent: respiratory distress, wheezes, rales, rhonchi, stridor Cardiovascular Exam: Present: regular rate, normal rhythm, normal heart sounds. Absent: systolic murmur, diastolic murmur, rubs, gallop, clicks Neurological exam: Present: alert, oriented X3 Psychiatric exam: Present: normal affect, normal mood Skin exam: Present: warm, dry, intact, normal color. Absent: rash <Jorge Granger - Last Filed: 07/19/21 16:26> Course Vital Signs 07/19/21 07/19/21 13:28 16:21 Temperature 98 F 98.4 F Pulse Rate 80 88 Respiratory 18 18 Rate Blood Pressure 135/87 149/91 O2 Sat by Pulse 100 99 Oximetry Medical Decision Making <Jorge Granger - Last Filed: 07/19/21 16:26> - Medical Decision Making Patient's symptoms have resolved. Her chest x-ray is negative for any acute process. She denies having any fevers, chest pain or shortness of breath at this time. No sick exposures. She is not concerned with Covid. She was directed to follow up with her primary care doctor this week. (Jorge Granger) Disposition <Josesito Oakley - Last Filed: 07/19/21 13:28> Is patient prescribed a controlled substance at d/c from ED?: No Time of Disposition: 16:25 <Jorge Granger - Last Filed: 07/19/21 16:26> Clinical Impression: Dyspnea Disposition: HOME SELF-CARE Condition: Good Additional Instructions: Follow-up with your primary care doctor this week. Return to the emergency room with any new or worsening symptoms. Referrals: None,Stated [Primary Care Provider] - 1-2 days
--- NOTE | 2021-07-19 13:55 | XR ---
EXAMINATION TYPE: XR chest 2V DATE OF EXAM: 07/19/2021 COMPARISON: 03/08/21 HISTORY: Chest pain TECHNIQUE: Frontal and lateral views of the chest are obtained. FINDINGS: There is no focal air space opacity. No evidence for pneumothorax. No pleural effusion. The cardiac silhouette size is within normal limits. The osseous structures are grossly intact. IMPRESSION: 1. No acute cardiopulmonary process.
[2021-07-19 16:22] VITALS: BP 149/91; PULSE 88; TEMP 98.4
== END 2021-07-19 16:36 | disposition home or self-care (01) ==
LOC: EC 12:44
DX: R06.02 Shortness of breath (principal); F41.9 Anxiety disorder, unspecified; F31.9 Bipolar disorder, unspecified; F17.290 Nicotine dependence, other tobacco product, uncomplicated; F12.90 Cannabis use, unspecified, uncomplicated
CPT/HCPCS: 71046; 99285

== ENCOUNTER → 2022-05-25 | Outpatient (CLI) | payer OTHER ==
--- NOTE | 2022-05-26 07:59 | US ---
EXAMINATION TYPE: US transvaginal DATE OF EXAM: 05/25/2022 COMPARISON: NONE CLINICAL HISTORY: 27-year-old female R10.2 PELVIC PAIN. Morphology Teacher notes: Nausea during intercourse. LEFT pelvic pain TECHNIQUE: Transvaginal (TV). Date of LMP: march FINDINGS: EXAM MEASUREMENTS: Uterus: 8.2 x 4.3 x 5.3 cm Endometrial Stripe: 1.2 cm Right Ovary: 3.2 x 1.9 x 2.1 cm for a volume of 6.8 mL Left Ovary: 3.2 x 2.8 x 1.9 cm for a volume of 8.7 mL 1. Uterus: Anteverted. Cervical nabothian cysts are present measuring up to 6 mm. 2. Endometrium: wnl 3. Right Ovary: follicles noted 4. Left Ovary: Mildly complex cyst with septation measuring 1.9 x 1.4 x 1.7cm 5. Bilateral Adnexa: wnl 6. Posterior cul-de-sac: wnl IMPRESSION: 1. Endometrial stripe thickness of 1.2 cm should correspond to the secretory phase of the menstrual c ycle. 2. Follicular changes in the ovaries. Additional 1.9 cm mildly complex cyst, probably a functional cy st of the left ovary. Reassess with a 6-8 week follow-up exam.
== END | disposition home or self-care (01) ==
LOC: RADUSWWP 16:10
PROVIDERS: ATTEND Obstetrics & Gynecology
DX: N88.8 Other specified noninflammatory disorders of cervix uteri (principal)
CPT/HCPCS: 76830

== ENCOUNTER 2023-08-02 11:56 | Emergency (ER) | payer OTHER ==
[2023-08-02 12:09] VITALS: PULSE 67
--- NOTE | 2023-08-02 12:35 | ED ---
General Adult HPI - General Chief complaint: Shortness of Breath Stated complaint: SOB Time Seen by Provider: 08/02/23 12:00 Source: patient, RN notes reviewed, old records reviewed Mode of arrival: ambulatory - History of Present Illness Initial comments: This is 28 her old female presents emergency department stating she has been having a long-standing issue with being tired and her physicians working that up. Patient states she saw her physician yesterday and since then she started having a sore throat and a cough and a little bit lightheadedness. Patient denies any palpitations per patient denies any chest pain. Patient denies any fever chills. Patient denies any sputum production. Patient denies any swelling to the legs or calf tenderness. Patient denies nausea vomiting diarrhea. Patient states her son is sick with an upper respiratory infection. - Related Data Home Medications Medication Instructions Recorded Confirmed hydrOXYzine pamoate [hydrOXYzine 50 mg PO TID PRN 03/08/21 03/08/21 PAMOATE] Previous Rx's Medication Instructions Recorded Cyclobenzaprine [Flexeril] 10 mg PO TID PRN #12 tablet 03/08/21 Ibuprofen [Motrin] 600 mg PO Q6HR PRN #20 tab 03/08/21 Allergies Allergy/AdvReac Type Severity Reaction Status Date / Time olanzapine [From Zyprexa] Allergy Unknown Verified 08/02/23 12:00 Review of Systems ROS Statement: Those systems with pertinent positive or pertinent negative responses have been documented in the HPI. ROS Other: All systems not noted in ROS Statement are negative. 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 Date of last positivie culture/infection: 2015 MDRO Source:: urine Past Surgical History: No Surgical Hx Reported Past Anesthesia/Blood Transfusion Reactions: No Reported Reaction Past Psychological History: Anxiety, Bipolar, Depression Smoking Status: Vaper Past Alcohol Use History: Occasional Past Drug Use History: Marijuana - Past Family History Father Additional Family Medical History / Comment(s): Bipolar Mother Family Medical History: Hypertension, Pulmonary Embolus Additional Family Medical History / Comment(s): Depression, Anxiety, PTSD Sister(s) Family Medical History: No Reported History Brother(s) Family Medical History: No Reported History General Exam - General Exam Comments Initial Comments: GENERAL: Patient is well-developed and well-nourished. Patient is nontoxic and well-hydrated and is in no acute distress. ENT: Neck is soft and supple. No significant lymphadenopathy is noted. Oropharynx is clear. Moist mucous membranes. Neck has full range of motion without eliciting any pain. EYES: The sclera were anicteric and conjunctiva were pink and moist. Extraocular mov ements were intact and pupils were equal round and reactive to light. Eyelids were unremarkable. PULMONARY: Unlabored respirations. Good breath sounds bilaterally. No audible rales rhonchi or wheezing was noted. CARDIOVASCULAR: There is a regular rate and rhythm without any murmurs gallops or rubs. ABDOMEN: Soft and nontender with normal bowel sounds. SKIN: Skin is clear with no lesions or rashes and otherwise unremarkable. NEUROLOGIC: Patient is alert and oriented x3. Cranial nerves II through XII are grossly intact. Motor and sensory are also intact. Normal speech, volume and content. Symmetrical smile. MUSCULOSKELETAL: Normal extremities with adequate strength and full range of motion. No lower extremity swelling or edema. No calf tenderness. LYMPHATICS: No significant lymphadenopathy is noted PSYCHIATRIC: Normal psychiatric evaluation. Course Vital Signs 08/02/23 08/02/23 11:58 12:08 Temperature 98.2 F Pulse Rate 67 Respiratory 18 24 Rate Blood Pressure 146/95 O2 Sat by Pulse 100 Oximetry Medical Decision Making - Medical Decision Making EKG as interpreted by myself. EKG shows a sinus rhythm at 62 bpm SD interval 173 QRS 98 QT interval is 446 QTC is 451. Patient's EKG shows no ST segment depression. Was pt. sent in by a medical professional or institution (, PA, TUNNEL HEADING SUPERVISOR, urgent care, hospital, or retirement...) When possible be specific @ -no Did you speak to anyone other than the patient for history (EMS, parent, family, police, friend...)? What history was obtained from this source @ -No Did you review nursing and triage notes (agree or disagree)? Why? @ -I reviewed and agree with nursing and triage notes Were old charts reviewed (outside hosp., previous admission, EMS record, old EKG, old radiological studies, urgent care reports/EKG's, retirement records)? Report findings @ -No old charts were reviewed Differential Diagnosis (chest pain, altered mental status, abdominal pain women, abdominal pain men, vaginal bleeding, weakness, fever, dyspnea, syncope, headache, dizziness, GI bleed, back pain, seizure, CVA, palpatations, mental health, musculoskeletal)? @ -COVID, influenza, upper respiratory infection, EKG interpreted by me (3pts min.). @ -As above X-rays interpreted by me (1pt min.). @ -Chest x-ray Shows no acute abnormality CT interpreted by me (1pt min.). @ -None done U/S interpreted by me (1pt. min.). @ -None done What testing was considered but not performed or refused? (CT, X-rays, U/S, labs)? Why? @ -None What meds were considered but not given or refused? Why? @ -None Did you discuss the management of the patient with other professionals (pro fessionals i.e. , PA, TUNNEL HEADING SUPERVISOR, lab, RT, psych nurse, community mental health social worker, crown assembly machine set up mechanic, teacher, airport operations officer, senior case manager)? Give summary @ -No Was smoking cessation discussed for >3mins.? @ -No Was critical care preformed (if so, how long)? @ -No Were there social determinants of health that impacted care today? How? (Homelessness, low income, unemployed, alcoholism, drug addiction, transporta tion, low edu. Level, literacy, decrease access to med. care, senior living, rehab)? @ -No Was there de-escalation of care discussed even if they declined (Discuss DNR or withdrawal of care, Hospice)? DNR status @ -No What co-morbidities impacted this encounter? (DM, HTN, Smoking, COPD, CAD, Cancer, CVA, ARF, Chemo, Hep., AIDS, mental health diagnosis, sleep apnea, morbid obesity)? @ -None Was patient admitted / discharged? Hospital course, mention meds given and route, prescriptions, significant lab abnormalities, going to OR and other pertinent info. @ -Patient had normal blood work as well as negative COVID negative influenza negative RSV and a negative chest x-ray. Undiagnosed new problem with uncertain prognosis? @ -No Drug Therapy requiring intensive monitoring for toxicity (Heparin, Nitro, Insulin, Cardizem)? @ -No Were any procedures done? @ -No Diagnosis/symptom? @ -Upper respiratory infection Acute, or Chronic, or Acute on Chronic? @ -Acute Uncomplicated (without systemic symptoms) or Complicated (systemic symptoms)? @ -Complicated Side effects of treatment? @ -No Exacerbation, Progression, or Severe Exacerbation? @ -No Poses a threat to life or bodily function? How? (Chest pain, [place], [place], pneumonia, PE, COPD, DKA, ARF, appy, cholecystitis, CVA, Diverticulitis, Homicidal, Suicidal, threat to staff... and all critical care pts) @ -No - Lab Data Result diagrams: 08/02/23 12:35 08/02/23 12:35 Lab Results 08/02/23 08/02/23 08/02/23 Range/Units 12:35 12:35 12:35 WBC 7.5 (3.8-10.6) k/uL RBC 4.93 (3.80-5.40) m/uL Hgb 14.8 (11.4-16.0) gm/dL Hct 43.9 (34.0-46.0) % MCV 89.1 (80.0-100.0) fL MCH 30.0 (25.0-35.0) pg MCHC 33.6 (31.0-37.0) g/dL RDW 13.3 (11.5-15.5) % Plt Count 264 (150-450) k/uL MPV 8.1 Neutrophils % 60 % Lymphocytes % 28 % Monocytes % 8 % Eosinophils % 1 % Basophils % 1 % Neutrophils # 4.5 (1.3-7.7) k/uL Lymphocytes # 2.1 (1.0-4.8) k/uL Monocytes # 0.6 (0-1.0) k/uL Eosinophils # 0.1 (0-0.7) k/uL Basophils # 0.1 (0-0.2) k/uL Sodium 139 (137-145) mmol/L Potassium 4.1 (3.5-5.1) mmol/L Chloride 107 (98-107) mmol/L Carbon Dioxide 23 (22-30) mmol/L Anion Gap 9 mmol/L BUN 6 L (7-17) mg/dL Creatinine 0.60 (0.52-1.04) mg/dL Est GFR (CKD-EPI)AfAm >90 (>60 ml/min/1.73 sqM) Est GFR (CKD-EPI)NonAf >90 (>60 ml/min/1.73 sqM) Glucose 108 H (74-99) mg/dL Calcium 9.8 (8.4-10.2) mg/dL Total Bilirubin 0.6 (0.2-1.3) mg/dL AST 21 (14-36) U/L ALT 28 (4-34) U/L Alkaline Phosphatase 60 (38-126) U/L Total Protein 7.7 (6.3-8.2) g/dL Albumin 4.4 (3.5-5.0) g/dL Influenza Type A (PCR) (Not Detectd) Influenza Type B (PCR) (Not Detectd) RSV (PCR) (Not Detectd) SARS-CoV-2 (PCR) (Not Detectd) Group A Strep (PCR) NOT DETECTED (Not Detectd) 08/02/23 Range/Units 13:15 WBC (3.8-10.6) k/uL RBC (3.80-5.40) m/uL Hgb (11.4-16.0) gm/dL Hct (34.0-46.0) % MCV (80.0-100.0) fL MCH (25.0-35.0) pg MCHC (31.0-37.0) g/dL RDW (11.5-15.5) % Plt Count (150-450) k/uL MPV Neutrophils % % Lymphocytes % % Monocytes % % Eosinophils % % Basophils % % Neutrophils # (1.3-7.7) k/uL Lymphocytes # (1.0-4.8) k/uL Monocytes # (0-1.0) k/uL Eosinophils # (0-0.7) k/uL Basophils # (0-0.2) k/uL Sodium (137-145) mmol/L Potassium (3.5-5.1) mmol/L Chloride (98-107) mmol/L Carbon Dioxide (22-30) mmol/L Anion Gap mmol/L BUN (7-17) mg/dL Creatinine (0.52-1.04) mg/dL Est GFR (CKD-EPI)AfAm (>60 ml/min/1.73 sqM) Est GFR (CKD-EPI)NonAf (>60 ml/min/1.73 sqM) Glucose (74-99) mg/dL Calcium (8.4-10.2) mg/dL Total Bilirubin (0.2-1.3) mg/dL AST (14-36) U/L ALT (4-34) U/L Alkaline Phosphatase (38-126) U/L Total Protein (6.3-8.2) g/dL Albumin (3.5-5.0) g/dL Influenza Type A (PCR) Not Detected (Not Detectd) Influenza Type B (PCR) Not Detected (Not Detectd) RSV (PCR) Not Detected (Not Detectd) SARS-CoV-2 (PCR) Not Detected (Not Detectd) Group A Strep (PCR) (Not Detectd) Disposition Clinical Impression: Upper respiratory infection Disposition: HOME SELF-CARE Instructions (If sedation given, give patient instructions): Upper Respiratory Infection (ED) Is patient prescribed a controlled substance at d/c from ED?: No Referrals: Kevin Perrin NPC [Primary Care Provider] - 1-2 days Time of Disposition: 14:43
[2023-08-02 12:52] LABS: Basophils # (A) 0.1 k/uL (0-0.2); Basophils % (A) 1 %; Eosinophils # (A) 0.1 k/uL (0-0.7); Eosinophils % (A) 1 %; HCT 43.9 % (34.0-46.0); HGB 14.8 gm/dL (11.4-16.0); Lymphocytes # (A) 2.1 k/uL (1.0-4.8); Lymphocytes % (A) 28 %; MCHC 33.6 g/dL (31.0-37.0); MCV 89.1 fL (80.0-100.0); Mean Platelet Volume 8.1; Monocytes # (A) 0.6 k/uL (0-1.0); Monocytes % (A) 8 %; Neutrophils # (A) 4.5 k/uL (1.3-7.7); Neutrophils % (A) 60 %; Platelet Count 264 k/uL (150-450); RBC 4.93 m/uL (3.80-5.40); RDW 13.3 % (11.5-15.5); WBC 7.5 k/uL (3.8-10.6)
[2023-08-02 13:04] LABS: ALT 28 U/L (4-34); AST 21 U/L (14-36); African American GFR (CKD) >90 (>60 ml/min/1.73 sqM); Albumin 4.4 g/dL (3.5-5.0); Alkaline Phosphatase 60 U/L (38-126); Anion Gap 9 mmol/L; Blood Urea Nitrogen 6 mg/dL (7-17); Calcium 9.8 mg/dL (8.4-10.2); Carbon Dioxide 23 mmol/L (22-30); Chloride 107 mmol/L (98-107); Glucose 108 mg/dL (74-99); Non-African American GFR(CKD) >90 (>60 ml/min/1.73 sqM); Potassium 4.1 mmol/L (3.5-5.1); Sodium 139 mmol/L (137-145); Total Bilirubin 0.6 mg/dL (0.2-1.3); Total Protein 7.7 g/dL (6.3-8.2)
--- NOTE | 2023-08-02 13:23 | XR ---
EXAMINATION TYPE: XR chest 2V DATE OF EXAM: 08/02/2023 1:19 PM COMPARISON: Chest radiographs from 07/19/2021 TECHNIQUE: XR chest 2V Frontal and lateral views of the chest. CLINICAL INDICATION:Female, 28 years old with history of Difficulty breathing ; FINDINGS: Lungs/Pleura: There is no evidence of pleural effusion, focal consolidation, or pneumothorax. Pulmonary vascularity: Unremarkable. Heart/mediastinum: Cardiomediastinal silhouette is unremarkable. Musculoskeletal: No acute osseous pathology. IMPRESSION: No acute cardiopulmonary disease/process.
[2023-08-02 15:30] VITALS: BP 111/81; RESP 18; TEMP 98.1
== END 2023-08-02 15:23 | disposition home or self-care (01) ==
LOC: EC 11:56
DX: J06.9 Acute upper respiratory infection, unspecified (principal); F17.290 Nicotine dependence, other tobacco product, uncomplicated; F12.90 Cannabis use, unspecified, uncomplicated; Z86.59 Personal history of other mental and behavioral disorders; Z20.822 Contact with and (suspected) exposure to COVID-19; Z88.5 Allergy status to narcotic agent
CPT/HCPCS: 36415; 71046; 80053; 85025; 87636; 87651; 93005; 99285